=== PATIENT | female | born 1935 | race Caucasian/White ===

== ENCOUNTER 2017-05-04 15:14 | Inpatient (IN) | payer OTHER ==
[~2017-05-04] VITALS: Ht 157.4 cm; Wt 95.4 kg
--- NOTE | ~2017-05-04 | CON ---
[place], [place] REPORT OF CONSULTATION NAME: CALI TAM [facility] #: [id number] UNIT #: [id number] ROOM: 509 DOCTOR: VICTOR HUGO [facility],STEFANIE BIRTHDATE: [birth year] DOS: 05/06/2017 CARDIOLOGY CONSULTATION This is a consult for Dr. Cheema covering on the weekend. The patient brought in with fairly to thrive and injured left shoulder because of the fall and the patient has a history of diastolic congestive heart failure. No syncope or presyncope. The patient tripped in the room apparently. The patient has been here currently feeling better. She is waiting for the transfer to the [facility] care. PHYSICAL EXAMINATION: VITAL SIGNS: Stable and the blood pressure is 124/46, heart rate is 55, afebrile, respiratory rate 18. SKIN: Warm, not diaphoretic. NECK: Supple. LUNGS: Diminished breath sounds and no wheezing. HEART: S1, S2 regular. ABDOMEN: Soft and obese. NEUROLOGIC: Alert, responding and mental status is good. RECTAL AND GENITAL: Deferred, unrelated. IMAGING STUDIES: Chest x-ray still shows left basal infiltrate but stable. No progression. IMPRESSION AND PLAN: 1. Diastolic heart failure appears to be stabilized. 2. The patient is on thyroid supplements for hypothyroidism and potassium supplement. 3. Cardiovascular status appears to be fairly stable and compensating well and Dr. Cheema will follow the patient as an outpatient. MEDICATIONS: Prilosec, Singulair, lisinopril 2.5 daily, isosorbide mononitrate 30 mg daily, Plavix 75 mg daily, furosemide, atenolol 25 mg twice a day, simvastatin 10 mg daily, and continue the current therapy. STEFANIE GAY MD CM:CONSTR:REPORT OF CONSULTATION 1652 05/22/17 1105 GERTRUDE MILLER
--- NOTE | ~2017-05-04 | PR ---
[place], [place] PROGRESS NOTE NAME: CALI TAM [facility] #: [id number] UNIT #: [id number] ROOM: 509 DOCTOR: EZEQUIEL WOODS MD BIRTHDATE: [birth year] DOS: 05/06/2017 SUBJECTIVE: The patient is doing fine without any complaints this morning. She has agreed to go to [facility] where her is currently at. OBJECTIVE: VITAL SIGNS: Graphic trend shows pressure 152/58, pulse of 53, respirations 20, temperature 98.8. LUNGS: Diminished breath sounds. HEART: Regular. ABDOMEN: Obese. EXTREMITIES: Without any edema. ASSESSMENT AND PLAN: 1. Adult failure to thrive with falls with the recent shoulder fracture. Conservative management was ordered by her orthopedic surgeon, but she is unable to take care of herself at home and would require short-term placement to [place]. It is currently being worked on. 2. Acute diastolic congestive heart failure, on IV diuretics. BMP within normal limits this morning. Repeat chest x-ray will be ordered and after that the patient should have her medications changed. EZEQUIEL WOODS MD CM:PNTRANS [id number] EZEQUIEL WOODS MD 05/08/17 0425 interface
--- NOTE | ~2017-05-04 | CON ---
[place], [place] REPORT OF CONSULTATION NAME: CALI TAM [facility] #: [id number] UNIT #: [id number] ROOM: 509 DOCTOR: FELICIA TIMMONS MD BIRTHDATE: [birth year] DOS: 05/08/2017 REPORT TO THE [employer] HISTORY OF PRESENT ILLNESS: The patient is a pleasant 82-year-old woman who was seen at Dr. Elliott' office because of failure to thrive and group home placement. Routine CBC exam, was found to be pancytopenic. I was subsequently consulted for further evaluation and management. PAST MEDICAL HISTORY: Chronic diastolic congestive heart failure, type 2 diabetes; chronic respiratory failure; essential hypertension; long-standing COPD with chronic respiratory failure, oxygen dependent; aortic stenosis; mixed hyperlipidemia; hypothyroidism; major depression; and vitamin D deficiency. FAMILY HISTORY: Noncontributory. SOCIAL HISTORY: Lives with a nephew. No smoking, drinking, or alcohol use. MEDICATIONS: Furosemide, Xanax, and Vicodin. ALLERGIES: To PENICILLIN, LATEX, and LYRICA. REVIEW OF SYSTEMS: CONSTITUTIONAL: No chills. No fatigue. No fever. No loss of appetite. No night sweats. No weakness. No weight loss. HEENT: No trouble swallowing. No loss of smell. No loss of hearing. No double vision. No pain. No discharge. ENT AND RESPIRATORY: No wheeze. No sore throat. No change in voice. No hearing loss. No nose bleed. No cough. No trouble breathing through nose. No shortness of breath. No coughing up blood. No epistaxis. CARDIOVASCULAR: No chest pain. No dizziness. No irregular heartbeat. No leg edema. No pain in legs while walking. No palpitations. No shortness of breath. DERMATOLOGIC: No acne. No hives. No laceration. No mole. No rash. ENDOCRINE: No cold intolerance. No diabetes. No fatigue. No hot flashes. No polydipsia. No polyuria. No urinating frequently. No weight loss. HEMATOLOGIC AND LYMPH: No fatigue. No easy bruising. GASTROENTEROLOGIC: No change in bowel habits. No indigestion. No frequent bloating. No vomiting blood. No abdominal cramping. No nausea. No heartburn. No vomiting. No abdominal pain. No dysphagia. No diarrhea. No constipation. No blood in stool. FEMALE REPRODUCTIVE: No vaginal itching. No difficulty urinating. No heavy periods. No dyspareunia. No sexually active. No dysmenorrhea. No pelvic pain. No breast pain. No nipple discharge. No abnormal vaginal discharge. No hot flashes. MUSCULOSKELETAL: No back pain. No muscle pain or weakness. No neck pain. No tingling/numbness. No swelling/bruising. No osteoporosis treatment. OPHTHALMOLOGIC: No double vision. No diminished vision. No loss of vision. UROLOGIC: No dysuria. No frequent nighttime urination. No irregular periods. [place], [place] REPORT OF CONSULTATION NAME: CALI TAM UNIT #: [id number] ROOM: [facility] DOCTOR: FELICIA TIMMONS MD BIRTHDATE: [birth year] No pain with urination. No difficulty urinating. No blood in urine. No frequent urination. No urinary incontinence. NEUROLOGIC: No loss of sensation in specific body area. No vertigo. No burning pain in feet. No trouble with balance. No trouble with coordination. No loss of consciousness. No loss of feeling/power. No confusion. No headache. No tingling/numbness. PSYCHOLOGIC: No tinnitus. No headaches. No shortness of breath. No weight decrease. No nausea. No vomiting. No abdominal discomfort. No constipation. No diarrhea. No depression. No anxiety. PHYSICAL EXAMINATION: GENERAL: Pleasant woman, in no apparent distress. VITAL SIGNS: Stable. She is afebrile. HEENT: Oral mucosa appears intact. The external ears are normal in appearance. Nares are patent without lesions, exudates, erythema, or inflammation. Tongue is symmetrical. Uvula is midline. NECK AND THYROID: Neck supple without palpable masses. Trachea is midline. No thyromegaly. No carotid bruit or JVD. BREASTS: Normal. Nipples unremarkable. No drainage. No lumps felt on either side. HEART: Normal S1, S2, without significant murmur, rub, or gallop. LUNGS: Clear to auscultation and percussion with good air entry bilaterally. The patient is breathing easily without the use of accessory muscles. Diaphragmatic excursions are intact. ABDOMEN: No costovertebral angle tenderness. Soft. No organomegaly or masses. Nontender. No hernias present. Liver and spleen are not palpable. LYMPHATIC: No adenopathy noted in the cervical, supraclavicular, axillary, or inguinal regions. NEUROLOGIC: Nonfocal. Oriented to person, place, and time. MENTAL STATUS: Appropriate for mood and affect. PERIPHERAL PULSES: No varicosities. Femoral and pedal pulses are palpable. EXTREMITIES: Without cyanosis, clubbing, or edema. No gross anomalies. LABORATORY DATA: White count of 2.7, hemoglobin 11.0, hematocrit 36.4, platelet count 97,000. Labs show BUN of 25, creatinine of 0.89, GFR more than 60. TIBC 244, iron sat is 47. ASSESSMENT: 1. Pancytopenia, probably secondary myelodysplastic syndrome. 2. Acute diastolic type congestive heart failure. 3. Emphysema. The patient wants to review the records. She may have myelodysplastic syndrome, I will see whether further workup was done or not in the meantime. Other lab workup may be done depending upon further intervention. I had a detailed discussion with the patient about it, who seemed to understand it. Ample time was given to the patient to ask me questions. We will follow. Thanks for consulting and letting me participate in the care of this interesting patient. [place], [place] REPORT OF CONSULTATION NAME: CALI TAM UNIT #: [id number] ROOM: [facility] DOCTOR: FELICIA TIMMONS MD BIRTHDATE: [birth year] FELICIA TIMMONS MD CM:CONSTR:REPORT OF CONSULTATION 0846 05/08/17 1234 interface
--- NOTE | ~2017-05-04 | PR ---
[place], [place] PROGRESS NOTE [id number] UNIT #: [id number] ROOM: 509 DOCTOR: ALEKSEY SIMENTAL MD BIRTHDATE: [birth year] DOS: 05/05/2017 SUBJECTIVE: The patient is feeling somewhat better. She is waiting for transfer to [facility] facility. OBJECTIVE: VITAL SIGNS: Blood pressure 122/48, heart rate 59 beats per minute, breathing 18 times per minute, temperature 98.4 degrees Fahrenheit. GENERAL: Generalized weakness and moderate obesity. HEENT AND NECK: Exam within normal limits. CARDIOVASCULAR SYSTEM: Heart rate is regular in rate and rhythm. S1 and S2 normally audible. LUNGS: Clear to auscultation. ABDOMEN: Soft, nontender. No obvious organomegaly. Bowel sounds are present. EXTREMITIES: Without significant cyanosis or edema. IMPRESSION: 1. The patient with old age, adult failure to thrive and generalized weakness is waiting for transfer to [facility] facility as discussed with director of social work. 2. Acute diastolic type congestive heart failure, being treated with diuresis and serum electrolytes are being followed. 3. Left basilar airspace disease, pneumonic infiltrates, being treated with antibiotics. X-ray will be repeated in a couple of days. 4. Pancytopenia and myelodysplasia with thrombocytopenia. 5. Chronic centrilobular emphysema with chronic respiratory failure and oxygen dependence. ALEKSEY SIMENTAL MD CM:PNTRANS [id number] ALEKSEY SIMENTAL MD 05/06/17 0032 interface
--- NOTE | ~2017-05-04 | DS ---
[place], [place] DISCHARGE SUMMARY NAME: CALI TAM [facility] #: [id number] UNIT #: [id number] ROOM: 509 DOCTOR: EZEQUIEL WOODS MD BIRTHDATE: [birth year] DOS: HOSPITAL COURSE: The patient is very well known to us. The patient was brought into the office with complaints of shortness of breath, shoulder pain and difficulty to take care of herself at home. After being evaluated in the office, the patient was admitted. IV diuretics were given. Chest x-ray showed atelectasis. The patient's labs were all fairly within normal limits as far as the basic metabolic panel is concerned but the CBC showed pancytopenia, could be from underlying myelodysplasia. The patient was ordered a consultation with Dr. Kerns. Iron deficiency was noted. Iron supplements have been started. The patient had a social service consult and PT, OT consult for placement. The patient also had a CT of the chest to rule out underlying pneumonia, atelectasis was seen, no actual infiltrate was noted, small pleural effusion is also seen. The patient is diuresed nicely. Pain is under control for recent clavicle fracture and the patient is going to a detention today for rehab purposes. DISCHARGE MEDICATIONS: Iron 325 mg daily, duloxetine 60 daily, Singulair 10 daily, omeprazole 20 daily, Zocor 10 daily, Plavix 75 daily, Colace 100 daily, levothyroxine 100 mcg daily, Isordil 30 daily, lisinopril 2.5 daily, gabapentin 100 t.i.d., potassium 10 daily, [place] 5 t.i.d. p.r.n., vitamin D 50,000 once a week for 4 more weeks and then discontinue, Lasix 40 mg p.o. daily, vitamin B complex 1 tablet daily, atenolol dosage was cut down to 25 mg daily because of bradycardia. EZEQUIEL WOODS MD CM:DISCHARG [id number] EZEQUIEL WOODS MD 05/08/17 0913 interface
--- NOTE | ~2017-05-04 | PR ---
[place], [place] PROGRESS NOTE NAME: CALI TAM [facility] #: [id number] UNIT #: [id number] ROOM: 509 DOCTOR: EZEQUIEL WOODS MD BIRTHDATE: [birth year] DOS: 05/08/2017 SUBJECTIVE: The patient is about the same, does not have any new complaints. PHYSICAL EXAMINATION: GENERAL: She is awake and alert and oriented. VITAL SIGNS: Blood pressure is 128/53, pulse of 58, respirations 18, temperature 98.1. LUNGS: Diminished breath sounds, clear. HEART: Regular. ABDOMEN: Obese, soft, nontender. EXTREMITIES: Without any edema. ASSESSMENT AND PLAN: 1. Acute diastolic congestive heart failure, improved. 2. Bradycardia noted. So, we will go ahead and cut back on the atenolol dosage to 25 mg daily. 3. Adult failure to thrive for placement to [facility] today. 4. Pancytopenia. Did ask Dr. Kerns for an opinion. TIBC, iron on the low side and supplements will be started in the process ruling out myelodysplasia. The patient to follow with Dr. Kerns as an outpatient. 5. Basilar atelectasis. CT of the chest shows small pleural effusions and atelectasis without any evidence of pneumonia. Recent fracture of the clavicle, again for a short term placement to a [facility]. EZEQUIEL WOODS MD CM:PNTRANS [id number] EZEQUIEL WOODS MD 05/08/17 1642 interface
--- NOTE | ~2017-05-04 | CON ---
[place], [place] REPORT OF CONSULTATION NAME: CALI TAM [facility] #: [id number] UNIT #: [id number] ROOM: 509 DOCTOR: SUSANA TejadaJHONY BIRTHDATE: [birth year] DOS: 05/05/2017 WOUND CARE CONSULTATION HISTORY OF PRESENT ILLNESS: This is an 82-year-old female with history of chronic congestive heart failure, myelodysplasia, pancytopenia, type 2 diabetes, essential hypertension, COPD, recent fracture of the left clavicle with severe debility who was admitted directly from the primary care office for adult failure to thrive and detention placement. Wound care has been consulted for a deep tissue injury of the buttock area that the patient states she has had for a couple of weeks now. According to the patient, she had a fall 3-5 weeks ago. She states it was at [facility] while she was using the restroom, she had trouble reaching the handlebars and fell and fractured her clavicle. Since then she has had quite a bit of difficulty and disability and has not been able to sleep in a bed due to this problem, so she has been sitting up in the chair and sleeping in a chair and since then she states she has developed a pressure sore on the buttock area that she states was actually open at one point and she utilized a skin protectant cream that she had. She is not sure what it was called, but it was a skin protectant that she utilized for this and it improved, it is no longer open and it is definitely not causing her any pain at this time. So, she has had this for a couple of weeks now. This is why I was consulted. PAST MEDICAL HISTORY: Significant for the following: Hypertension, congestive heart failure, peripheral vascular disease, status post right carotid endarterectomy, paroxysmal atrial fibrillation, hyperlipidemia, hypothyroidism, aortic stenosis, and morbid obesity. She also has a history of type 2 diabetes, chronic respiratory failure with hypercapnia, COPD, hyperlipidemia, vitamin D deficiency, major depression, which is recurrent and myelodysplastic syndrome, and pancytopenia. SOCIAL HISTORY: She does not smoke or drink. The patient's nephew lives with her. There is no history of drug abuse. FAMILY HISTORY: Really noncontributory at this time. ALLERGIES: PENICILLIN, LATEX AND LYRICA. MEDICATIONS: As follows: She is on levothyroxine 150 mcg daily, potassium 10 mEq daily, Singulair 10 daily, lisinopril 2.5 daily, Imdur 30 mg p.o. daily, Lasix 60 mg IV daily, Cymbalta 60 mg p.o. daily, Plavix 75 p.o. daily, Prilosec 20 p.o. daily, levothyroxine 100 mcg on Monday, Monday, Monday, and and the rest of the days, Monday and Monday, she is on 150. Zocor 10 at bedtime, Neurontin 100 p.o. t.i.d., Colace 100 at bedtime, atenolol 25 mg p.o. b.i.d., Dameron one tablet t.i.d. p.r.n., Xanax 0.5 p.o. b.i.d. p.r.n. REVIEW OF SYSTEMS: She does complain of a chronic cough. She says she has some increased pedal edema. She says her appetite has not been good. She does not think she has lost any weight. She denies any chest pain. Her breathing is comfortable presently, but she does get increasing shortness of breath upon [place], [place] REPORT OF CONSULTATION [id number] #: [id number] ROOM: [facility] DOCTOR: JHONY MEZA M.D. BIRTHDATE: [birth year] exertion. No nausea, vomiting, abdominal pain, or diarrhea. No chest pains or palpitations. PHYSICAL EXAMINATION: VITAL SIGNS: Stable. Temperature is 97.4, pulse of 57, respirations 16, blood pressure is 137/52. GENERAL: This is an elderly female, morbidly obese, sitting in a chair, in no acute distress. She is comfortable. HEENT: Extraocular movements are intact. Sclerae are anicteric. NECK: Supple. There is no JVD. LUNGS: Have some occasional rhonchi throughout that clear with a cough. CARDIOVASCULAR: S1, S2, regular rate and rhythm. ABDOMEN: Morbidly obese, soft and nontender. EXTREMITIES: She has edema bilaterally that is pitting and there is no calf tenderness. She has very limited range of motion with her left arm. She has 2 areas of what appear to be deep tissue injury, it is a purplish discoloration, that are essentially mirror images of each other, on each of the buttocks, it is approximately 4-5 cm in length x 3-4 cm in width. It is not actually open. It does appear that there is some dry skin. It does look like this probably had been open at one time and had healed over, but is not open. LABORATORY DATA: Her white count today is 2.7, hemoglobin is 11, platelets are 93. Sodium is 144, BUN is 21, creatinine 0.9. Glucose is 95. Her chest x-ray shows progressive left basilar airspace and pleural disease. ASSESSMENT AND PLAN: A deep tissue injury of the buttock area which appears closed at this time. According to the patient's story, it sounds like it was open, but has since healed over. She has been using a skin protectant, so we will continue to use that for now. I think it would be hard to put a dressing on this area at this time and per the patient report since it seemed to have healed with skin protectant, I would avoid trying to put any dressing on at this time. She should be encouraged to offload the area as much as possible. We should get her an air mattress if we can, encourage her to lie on her side when she is in bed. She should have a wedge to keep her off of the area as much as possible and a cushion for her chair when she is in a seated position. She has multiple other medical problems that are being managed by her medical team. Thank you for this consult. [place], [place] REPORT OF CONSULTATION NAME: [id number] UN[facility] #: [id number] ROOM: [facility] DOCTOR: JHONY MEZA M.D. BIRTHDATE: [birth year] JHONY MEZA MD CM:CONSTR:REPORT OF CONSULTATION 1354 EM 05/15/17 1533 ELPIDIO QUEEN.EM
--- NOTE | ~2017-05-04 | WRIGHTHP ---
[place], [place] PATIENT HISTORY AND PHYSICAL EXAM NAME: CALI TAM [facility] #: [id number] UNIT #: [id number] ROOM: 509 DOCTOR: ALEKSEY SIMENTAL MD BIRTHDATE: [birth year] DOS: 05/04/2017 HISTORY OF PRESENT ILLNESS: An 82-year-old female with a past medical history of: 1. Chronic diastolic type congestive heart failure. 2. Myelodysplastic syndrome and pancytopenia. 3. Type 2 diabetes mellitus. 4. Chronic respiratory failure and hypercapnia. 5. Benign essential hypertension. 6. COPD with chronic respiratory failure, oxygen dependence. 7. Mixed hyperlipidemia. 8. Aortic stenosis. 9. Hypothyroidism. 10. Major depression, recurrent. 11. Vitamin D deficiency. The patient was sent over by Dr. Elliott from the office for an admission to [facility] for adult failure to thrive and intermediate placement. After admission, the patient says that her nephew lives with her. She denies smoking cigarettes, alcohol and drug abuse. No chest pain, increasing shortness of breath. The patient unable to live by herself and requires a intermediate placement. REVIEW OF SYSTEMS: LUNGS: No increasing shortness of breath or wheezing. GASTROINTESTINAL: No nausea, vomiting, diarrhea, constipation. CARDIOVASCULAR: No chest pains or palpitations. FAMILY HISTORY: Noncontributory. SOCIAL HISTORY: The patient's nephew lives with her. Denies smoking cigarettes, alcohol or any drug abuse. MEDICATIONS: Furosemide, Xanax, Vicodin. ALLERGIES: Known allergies to PENICILLIN, LATEX, LYRICA. PHYSICAL EXAMINATION: GENERAL: Alert and oriented x 3, in no visible distress, moderately obese and very weak. Morbid obesity, generalized weakness. VITAL SIGNS: Blood pressure 113/45, heart rate of 58 beats per minute, breathing 18 times per minute, temperature 98.4 degrees Fahrenheit. HEENT AND NECK: Extraocular movements are intact. Sclerae are anicteric. Oral mucosa is moist and clean. No obvious facial weakness. Neck is supple without any lymphadenopathy. No thyromegaly. No JVD. No carotid arterial bruits. LUNGS: Clear to auscultation. No wheezing. No rhonchi. CARDIOVASCULAR SYSTEM: Heart rate is regular in rate and rhythm. S1 and S2 normally audible. No significant murmur or any other abnormal cardiac sounds. ABDOMEN: Soft, nontender. No obvious organomegaly. Bowel sounds are present. No obvious herniation. [place], [place] PATIENT HISTORY AND PHYSICAL EXAM NAME: CALI TAM UNIT #: [id number] ROOM: 509 DOCTOR: ALEKSEY SMIENTAL MD BIRTHDATE: [birth year] EXTREMITIES: Without significant cyanosis or edema. Warm to touch. CENTRAL NERVOUS SYSTEM: Alert and oriented x 3. Cranial nerves II-XII are intact. Speech is normal. The patient is able to move all extremities. Normal muscle strength. Deep tendon reflexes are equal on both sides. Plantars were downgoing. LABORATORY DATA: Chest x-ray shows progressive left basilar airspace and pleural disease. BUN and creatinine 20 and 1.1, CO2 of 38. White cell count of 2700, hemoglobin 11.2, platelets low at 93,000. IMPRESSION: 1. Old age, adult failure to thrive and generalized weakness. The patient requires intermediate placement, sent over by Dr. Elliott. 2. The patient with acute diastolic type congestive heart failure, to be diuresed with IV Lasix and serum electrolytes will be monitored. 3. Progressive left basilar airspace disease, pleural disease and pneumonic infiltrate, to be treated with antibiotics. 4. director of clinical services have been consulted for placement to the intermediate. 5. Myelodysplasia and pancytopenia including thrombocytopenia. 6. Chronic centrilobular emphysema and chronic respiratory failure with oxygen dependence. ALEKSEY SIMENTAL MD CM:HISPHYS:PATIENT HISTORY AND PHYSICAL EXAMINATION 23 54 ALEKSEY SIMENTAL MD 05/04/172253 interface
--- NOTE | ~2017-05-04 | PR ---
[place], [place] PROGRESS NOTE [facility]: [id number] UNIT #: [id number] ROOM: 509 DOCTOR: EZEQUIEL WOODS MD BIRTHDATE: [birth year] DOS: SUBJECTIVE: The patient states that she is ready to go to the residential. OBJECTIVE: VITAL SIGNS: Graphic trend shows a pressure of 126/62, pulse is 61, respirations 18, temperature 98.4. LUNGS: Clear. HEART: Regular. ABDOMEN: Obese. EXTREMITIES: Without any edema. LABORATORY DATA: So far I only have a CBC, which showed continued pancytopenia, white cell count is 2.9, hemoglobin 11.1, and platelets 92. Chest x-ray continues to show atelectasis. BMP is not available today. ASSESSMENT AND PLAN: 1. Acute diastolic congestive heart failure, improved. We will make the Lasix p.o. 2. Adult failure to thrive with fall and fracture of the shoulder for placement to [place] hopefully tomorrow. 3. Pancytopenia. We will ask Dr. Kerns for an opinion, most likely myelodysplastic syndrome. EZEQUIEL WOODS MD CM:PNTRANS 07 EZEQUIEL WOODS MD 05/07/17 0915 interface
[~2017-05-04 15:14] MED LIST: ADVAIR 100/501 E1 INH; ALPRAZOLAM0.5 M3 PO; ATENOLOL25 MG PO; B COMPLETE1 EACH PO; CIPRO500 MG PO; COLACE100 MG PO; CYMBALTA60 MG PO; HYDROCODON-ACE1 EACH PO; HYDROCODONE BIT1 T11 PO; IMDUR SA30 MG PO; INVANZ1 GM/50 ML IV; Imdur SA60 MG PO; K-TAB10 MEQ PO; LASIX20 MG PO; LISINOPRIL10 M1 PO; LISINOPRIL5 MG PO; LYRICA75 M1 PO; NEURONTIN100 MG PO; OMEPRAZOLE DR20 M1 PO; PLAVIX75 M1 PO; PLAVIX75 MG PO; POTASSIUM CHLO10 ME4 PO; SEPTRA DS 800 M1 TAB PO; SIMVASTATIN10 MG PO; SINGULAIR10 MG PO; SYNTHROID,LEV100 MCG PO; Synthroid,Lev100 MCG PO; Synthroid,Lev150 MCG PO; TRICOR145 MG PO; VICODIN ES 7501 TAB PO; VITAMIN D22000 UNIT PO; VITAMIN D2400 UNIT PO; VITAMIN D50000 UNIT PO; XANAX0.5 MG PO; ZESTRIL5 MG PO; ZOCOR10 MG PO
[2017-05-04] MEDS ORDERED: LASIX20 MG PO (15:53)
[2017-05-04 16:00] VITALS: BP 113/45
[2017-05-04] MEDS ORDERED: LEVOTHYROXINE0.1 MG PO (16:05)
[2017-05-04] MEDS ORDERED: B COMPLETE1 EACH PO (16:08)
[2017-05-04 16:50] LABS: EOS # 0.1 10*3/uL (0.0-0.4); EOS % 2.6 % (1.0-4.0); HEMATOCRIT 36.1 % (37.0-47.0); HEMOGLOBIN 11.2 g/dl (12.0-16.0); LYMPH # 0.8 10*3/uL (1.3-4.4); LYMPH % 30.2 % (27.0-41.0); MEAN CELL VOLUME 98.4 fl (81.0-99.0); MEAN CORPUSCULAR HGB 30.5 pg (27.0-31.0); MEAN PLATELET VOLUME 8.6 fl (9.6-12.3); MONO # 0.2 10*3/uL (0.1-1.0); MONO % 6.3 % (3.0-9.0); NEUT # 1.6 10*3/uL (2.3-7.9); NEUT % 60.5 % (47.0-73.0); PLATELET COUNT AUTOMATED 93 10*3/uL (130-400); RED BLOOD COUNT 3.67 10*6/uL (4.10-5.10); RED CELL DISTRI WIDTH 13.8 % (0-14.5); WHITE BLOOD COUNT 2.7 10*3/uL (4.8-10.8)
[2017-05-04 17:03] LABS: POTASSIUM 4.9 mmol/L (3.5-5.1)
[2017-05-04 20:00] VITALS: BP 145/50
[2017-05-05] VITALS: BP 124/50
[2017-05-05 07:31] LABS: BUN 21 mg/dl (7-24); CARBON DIOXIDE 36 mmol/L (21-32); CHLORIDE 101 mmol/L (98-107); EST GLOM FILT AFRICAN AMERICAN > 60 ml/min; GLUCOSE 95 mg/dL (65-99); POTASSIUM 4.4 mmol/L (3.5-5.1); SODIUM 144 mmol/L (136-145)
[2017-05-05 08:00] VITALS: BP 122/48
[2017-05-05 12:00] VITALS: BP 137/52
[2017-05-05 16:00] VITALS: BP 142/50
[2017-05-05 20:00] VITALS: BP 147/72
[2017-05-06] VITALS: BP 152/58
[2017-05-06 06:53] LABS: BUN 19 mg/dl (7-24); CARBON DIOXIDE 39 mmol/L (21-32); CHLORIDE 98 mmol/L (98-107); EST GLOM FILT AFRICAN AMERICAN > 60 ml/min; GLUCOSE 86 mg/dL (65-99); SODIUM 144 mmol/L (136-145)
[2017-05-06 08:00] VITALS: BP 126/86; BP 128/64
[2017-05-06 12:00] VITALS: BP 123/66
[2017-05-06 16:00] VITALS: BP 124/46
[2017-05-06 20:00] VITALS: BP 135/54
[2017-05-07] VITALS: BP 126/62
[2017-05-07 06:55] LABS: EOS # 0.1 10*3/uL (0.0-0.4); HEMATOCRIT 35.5 % (37.0-47.0); HEMOGLOBIN 11.1 g/dl (12.0-16.0); LYMPH # 0.9 10*3/uL (1.3-4.4); LYMPH % 31.1 % (27.0-41.0); MEAN CELL VOLUME 98.3 fl (81.0-99.0); MEAN CORPUSCULAR HGB 30.7 pg (27.0-31.0); MEAN CORPUSCULAR HGB CONC 31.3 g/dl (33.0-37.0); MEAN PLATELET VOLUME 8.6 fl (9.6-12.3); MONO # 0.2 10*3/uL (0.1-1.0); MONO % 6.5 % (3.0-9.0); NEUT # 1.8 10*3/uL (2.3-7.9); NEUT % 59.7 % (47.0-73.0); PLATELET COUNT AUTOMATED 92 10*3/uL (130-400); RED BLOOD COUNT 3.61 10*6/uL (4.10-5.10); RED CELL DISTRI WIDTH 13.2 % (0-14.5); WHITE BLOOD COUNT 2.9 10*3/uL (4.8-10.8)
[2017-05-07 07:33] LABS: BUN 19 mg/dl (7-24); CHLORIDE 96 mmol/L (98-107); EST GLOM FILT AFRICAN AMERICAN > 60 ml/min; GLUCOSE 93 mg/dL (65-99); POTASSIUM 4.4 mmol/L (3.5-5.1); SODIUM 142 mmol/L (136-145)
[2017-05-07 07:37] LABS: CARBON DIOXIDE 42 mmol/L (21-32)
[2017-05-07 08:00] VITALS: BP 156/78
[2017-05-07 12:00] VITALS: BP 170/86
[2017-05-07 16:33] VITALS: BP 123/40
[2017-05-07 20:00] VITALS: BP 134/65
[2017-05-08] VITALS: BP 128/53
[2017-05-08 06:27] LABS: EOS % 1.5 % (1.0-4.0); HEMATOCRIT 36.4 % (37.0-47.0); LYMPH % 35.7 % (27.0-41.0); MEAN CELL VOLUME 98.9 fl (81.0-99.0); MEAN CORPUSCULAR HGB 29.9 pg (27.0-31.0); MEAN CORPUSCULAR HGB CONC 30.2 g/dl (33.0-37.0); MEAN PLATELET VOLUME 9.1 fl (9.6-12.3); MONO # 0.2 10*3/uL (0.1-1.0); MONO % 5.6 % (3.0-9.0); NEUT # 1.5 10*3/uL (2.3-7.9); NEUT % 56.8 % (47.0-73.0); PLATELET COUNT AUTOMATED 97 10*3/uL (130-400); RED BLOOD COUNT 3.68 10*6/uL (4.10-5.10); RED CELL DISTRI WIDTH 13.3 % (0-14.5); RETICULOCYTE % 1.92 % (0.50-2.50); WHITE BLOOD COUNT 2.7 10*3/uL (4.8-10.8)
[2017-05-08 06:37] LABS: IRF 13.8 % (2.4-13.3); RET-He 30.3 pg (32.1-37.9)
[2017-05-08 06:53] LABS: IRON 47 ug/dL (50-170)
[2017-05-08] MEDS ORDERED: ATENOLOL25 MG PO (07:47)
[2017-05-08] MEDS ORDERED: IRON325 M2 PO (07:51)
[2017-05-08 08:00] VITALS: BP 154/52
[2017-05-08 12:00] VITALS: BP 113/48
[2017-05-09 15:10] LABS: HLA CLASS 1 ANTIBODY Negative (Negative); IIb/IIIa ANTIBODY Negative (Negative); Ia/IIa ANTIBODY Negative (Negative)
[2017-05-10 15:07] LABS: PLT ASSOCIATED ANTI-la/lla Negative (Negative); PLT ASSOCIATED ANTI-llb/llla Negative (Negative)
== END 2017-05-08 15:32 | disposition other institution (70) | DRG 291 ==
LOC: 5E 15:14
PROVIDERS: Internal Medicine; Internal Medicine Hematology & Oncology
DX: I50.33 Acute on chronic diastolic (congestive) heart failure (principal); J96.22 Acute and chronic respiratory failure with hypercapnia; D61.818 Other pancytopenia; E11.51 Type 2 diabetes mellitus with diabetic peripheral angiopathy without gangrene; J43.2 Centrilobular emphysema; D46.9 Myelodysplastic syndrome, unspecified; J98.11 Atelectasis; F33.9 Major depressive disorder, recurrent, unspecified; I11.0 Hypertensive heart disease with heart failure; E61.1 Iron deficiency; E78.2 Mixed hyperlipidemia; E03.9 Hypothyroidism, unspecified; R62.7 Adult failure to thrive; S42.002A Fracture of unspecified part of left clavicle, initial encounter for closed fracture; I48.0 Paroxysmal atrial fibrillation; E66.01 Morbid (severe) obesity due to excess calories; I35.0 Nonrheumatic aortic (valve) stenosis; S30.0XXA Contusion of lower back and pelvis, initial encounter; Z99.81 Dependence on supplemental oxygen; Z91.040 Latex allergy status; Z88.8 Allergy status to other drugs, medicaments and biological substances; Z88.0 Allergy status to penicillin; Z91.013 Allergy to seafood; Z87.81 Personal history of (healed) traumatic fracture; Z68.38 Body mass index [BMI] 38.0-38.9, adult; W01.0XXA Fall on same level from slipping, tripping and stumbling without subsequent striking against object, initial encounter; Y93.89 Activity, other specified; Y92.89 Other specified places as the place of occurrence of the external cause; Y99.8 Other external cause status

== ENCOUNTER 2017-11-24 08:20 | Inpatient (IN) | payer MEDICARE, OTHER ==
[~2017-11-24] VITALS: Ht 165 cm; Wt 104.1 kg
--- NOTE | ~2017-11-24 | PR ---
[place], [place] PROGRESS NOTE NAME: CALI TAM [facility] #: [id number] UNIT #: [id number] ROOM: 503 DOCTOR: FELICIA TIMMONS MD BIRTHDATE: [birth year] DOS: 12/01/2017 SUBJECTIVE: The patient is doing much better. She is doing better and is being transferred to [facility]. REVIEW OF SYSTEMS: HEENT: No trouble swallowing. No double vision. No loss of vision. No pain. ENT AND RESPIRATORY: No wheeze. No change in voice. No cough. No shortness of breath. No coughing up blood. No epistaxis. CARDIOLOGIC: No chest pain. No dizziness. No irregular heartbeat. No leg edema. No palpitations. No shortness of breath. HEMATOLOGIC AND LYMPH: No past transfusion. No fatigue. No loss of appetite. No easy bruising. GASTROENTEROLOGIC: No change in bowel habits. No vomiting blood. No abdominal cramping. No nausea. No vomiting. No diarrhea. No constipation. No blood in stool. FEMALE REPRODUCTIVE: No dyspareunia. No pelvic pain. MUSCULOSKELETAL: No back pain. No muscle pain or weakness. No tingling/numbness. UROLOGIC: No pain with urination. No difficulty urinating. No frequent urination. NEUROLOGIC: No burning pain in feet. No trouble with coordination. No loss of consciousness. No headache. No tingling/numbness. No memory loss. PHYSICAL EXAMINATION: GENERAL: Pleasant woman in no apparent distress. VITAL SIGNS: Stable. She is afebrile. HEENT: Normocephalic, atraumatic NECK AND THYROID: Supple. No JVD, thyromegaly, or lymphadenopathy. HEART: Normal S1, S2. Regular rate and rhythm. LUNGS: Clear to auscultation and percussion. ABDOMEN: Soft. Nontender, nondistended. Bowel sounds present. EXTREMITIES: Normal ROM. No clubbing. No edema. LABORATORY DATA: White count 3.5, hemoglobin 11.1, hematocrit 36.6, and platelet 106,000. ASSESSMENT: 1. Pancytopenia. 2. Possible myelofibrosis. 3. Exacerbation of chronic obstructive pulmonary disease. PLAN: The patient probably is going to be transferred to [facility]. We will keep a close watch on the white count, if started dropping, then further intervention discussed. [place], [place] PROGRESS NOTE NAME: CALI TAM UNIT #: [id number] ROOM: 503 DOCTOR: FELICIA TIMMONS MD BIRTHDATE: [birth year] FELICIA TIMMONS MD CM:PNTRANS 46 FELICIA TIMMONS MD 12/01/171946 interface
--- NOTE | ~2017-11-24 | PR ---
[place], [place] PROGRESS NOTE NAME: CALI TAM UNIT #: [id number] ROOM: 503 DOCTOR: KHLOE POOL DO BIRTHDATE: [birth year] DOS: 11/29/2017 SUBJECTIVE: The patient is seen and examined at bedside. The patient reports that her respiratory symptoms have improved. No new complaints at this time. The patient continues to improve. The patient continues to be anxious for discharge. OBJECTIVE: VITAL SIGNS: Temperature 97.5, pulse is 60, respirations 16, blood pressure 134/62, pulse ox is 94% on 3 liters nasal cannula. LABS: White count 4.5, hemoglobin 12.3, hematocrit 4.0, platelets count 134. Blood gasses this morning showed a pH of 7.26, pCO2 of 67.2, pO2 of 83.9. Chemistries: Sodium 137, potassium 4.8, chloride 98, carbon dioxide 34, BUN and creatinine 63 and 2.0. Glucose was 86, calcium 8.6. Urine culture was negative. MRSA screen was negative. PHYSICAL EXAMINATION: GENERAL APPEARANCE: Alert and awake and oriented x 3, no acute distress. LUNGS: Clear to auscultation bilaterally. ABDOMEN: Soft, nontender with positive bowel signs. CARDIOVASCULAR: Regular rate and rhythm. No murmurs, gallops or rubs. EXTREMITIES: Without edema. IMPRESSION: Acute on chronic exacerbation of chronic obstructive pulmonary disease with acute hypercarbia and hypoxia. Status resolving. PLAN OF CARE: The patient is stable from a medical standpoint for discharge home. No change in current plan. The patient can be discharged with Diamox, steroids, antibiotics and can follow up outpatient with Dr. Gonzalez in 1-2 weeks. KHLOE POOL DO [place], [place] PROGRESS NOTE NAME: CALI TAM UNIT #: [id number] ROOM: 503 DOCTOR: KHLOE POOL DO BIRTHDATE: [birth year] CRISTIAN GONZALEZ MD CM:WILVER [id number] KHLOE POOL DO 11/29/17 1313 interface
--- NOTE | ~2017-11-24 | CON ---
[place], [place] REPORT OF CONSULTATION NAME: CALI TAM [facility] #: [id number] UNIT #: [id number] ROOM: 503 DOCTOR: FELICIA TIMMONS MD BIRTHDATE: [birth year] DOS: 11/27/2017 HISTORY OF PRESENT ILLNESS: The patient is a pleasant 82-year-old [place] woman admitted because of increasing shortness of breath, was also noted to have generalized weakness and fatigue. Initially, she was noted to have UTI and was treated previously with antibiotics while in the hospital though she was noted to have pancytopenia and consulted for further evaluation and management. PAST MEDICAL HISTORY: Significant for history of pancytopenia in the past, was being worked up, but never showed up in the office. History of chronic obstructive pulmonary disease, chronic hypoxic respiratory failure, chronic hypercapnic respiratory failure, essential hypertension, mixed hyperlipidemia, aortic stenosis, hypothyroidism, failure to thrive. PAST SURGICAL HISTORY: Left carotid endarterectomy, history of partial thyroidectomy for goiter. SOCIAL HISTORY: , 3 children, lives at home. Denies any drug abuse or alcohol abuse. She worked 20 years in [employer]. Denies any chronic alcohol abuse. FAMILY HISTORY: Not contributory. MEDICATIONS: Solu-Medrol, Diamox, thiamine, potassium chloride, lisinopril, Imdur, Lasix, ferrous sulfate, Plavix, atenolol, omeprazole, Synthroid, simvastatin, gabapentin, DuoNeb. ALLERGIES: PENICILLIN and LYRICA. REVIEW OF SYSTEMS: CONSTITUTIONAL: No chills. No fatigue. No fever. No loss of appetite. No night sweats. No weakness. No weight loss. HEENT: No trouble swallowing. No loss of smell. No loss of hearing. No double vision. No pain. No discharge. ENT AND RESPIRATORY: No wheeze. No sore throat. No change in voice. No hearing loss. No nose bleed. No cough. No trouble breathing through nose. No shortness of breath. No coughing up blood. No epistaxis. CARDIOVASCULAR: No chest pain. No dizziness. No irregular heartbeat. No leg edema. No pain in legs while walking. No palpitations. No shortness of breath. DERMATOLOGIC: No acne. No hives. No laceration. No mole. No rash. ENDOCRINE: No cold intolerance. No diabetes. No fatigue. No hot flashes. No polydipsia. No polyuria. No urinating frequently. No weight loss. HEMATOLOGIC AND LYMPH: No fatigue. No easy bruising. GASTROENTEROLOGIC: No change in bowel habits. No indigestion. No frequent bloating. No vomiting blood. No abdominal cramping. No nausea. No heartburn. No vomiting. No abdominal pain. No dysphagia. No diarrhea. No constipation. No blood in stool. FEMALE REPRODUCTIVE: No vaginal itching. No difficulty urinating. No heavy periods. No dyspareunia. No sexually active. No dysmenorrhea. No pelvic pain. [place], [place] REPORT OF CONSULTATION [facility] [id number] UNIT #: [id number] ROOM: [facility] DOCTOR: FELICIA TIMMONS MD BIRTHDATE: [birth year] No breast pain. No nipple discharge. No abnormal vaginal discharge. No hot flashes. MUSCULOSKELETAL: No back pain. No muscle pain or weakness. No neck pain. No tingling/numbness. No swelling/bruising. No osteoporosis treatment. OPHTHALMOLOGIC: No double vision. No diminished vision. No loss of vision. UROLOGIC: No dysuria. No frequent nighttime urination. No irregular periods. No pain with urination. No difficulty urinating. No blood in urine. No frequent urination. No urinary incontinence. NEUROLOGIC: No loss of sensation in specific body area. No vertigo. No burning pain in feet. No trouble with balance. No trouble with coordination. No loss of consciousness. No loss of feeling/power. No confusion. No headache. No tingling/numbness. PSYCHOLOGIC: No tinnitus. No headaches. No shortness of breath. No weight decrease. No nausea. No vomiting. No abdominal discomfort. No constipation. No diarrhea. No depression. No anxiety. PHYSICAL EXAMINATION: GENERAL: Pleasant woman in no acute distress. VITAL SIGNS: Stable, afebrile. HEENT: Oral mucosa appears intact. The external ears are normal in appearance. Nares are patent without lesions, exudates, erythema, or inflammation. Tongue is symmetrical. Uvula is midline. NECK AND THYROID: Neck supple without palpable masses. Trachea is midline. No thyromegaly. No carotid bruit or JVD. BREASTS: Normal. Nipples unremarkable. No drainage. No lumps felt on either side. HEART: Normal S1, S2, without significant murmur, rub, or gallop. LUNGS: Clear to auscultation and percussion with good air entry bilaterally. The patient is breathing easily without the use of accessory muscles. Diaphragmatic excursions are intact. ABDOMEN: No costovertebral angle tenderness. Soft. No organomegaly or masses. Nontender. No hernias present. Liver and spleen are not palpable. LYMPHATIC: No adenopathy noted in the cervical, supraclavicular, axillary, or inguinal regions. NEUROLOGIC: Nonfocal. Oriented to person, place, and time. MENTAL STATUS: Appropriate for mood and affect. PERIPHERAL PULSES: No varicosities. Femoral and pedal pulses are palpable. EXTREMITIES: Without cyanosis, clubbing, or edema. No gross anomalies. LABORATORY DATA: White count of 3.0, hemoglobin 11.6, hematocrit 39.2, MCV 100.8, platelet count 110,000. ASSESSMENT: 1. Pancytopenia from etiology. 2. Acute superimposed congestive heart failure with a history of aortic stenosis. 3. Questionable history of myelofibrosis. PLAN: I will review records from the office for further evaluation. In the meantime, I will review the peripheral smears record from the hospital also [place], [place] REPORT OF CONSULTATION NAME: CALI TAM UNIT #: [id number] ROOM: [facility] DOCTOR: FELICIA TIMMONS MD BIRTHDATE: [birth year] reported that the counts dropped with further intervention. I had detailed discussion with the patient about this, seemed to understand. Ample time was given to the patient to ask me questions. We will follow. Thanks for consulting and letting participate in the care of this interesting patient. FELICIA TIMMONS MD CM:CONSTR:REPORT OF CONSULTATION 1425 11/27/17 7637 interface
--- NOTE | ~2017-11-24 | PR ---
[place], [place] PROGRESS NOTE NAME: CALI TAM [facility] #: [id number] UNIT #: [id number] ROOM: 503 DOCTOR: LISA BRANCH MD,CRISTIAN BIRTHDATE: [birth year] DOS: 11/27/2017 SUBJECTIVE: The patient was noted without any acute respiratory distress at this time using the BiPAP. The patient at this time for reduction of the respiratory status noted. Mental status was noted completely normal. We were able to communicate with the patient this morning. Denies symptoms of headache, nausea, vomiting or diarrhea. Denies any significant edema in lower extremity. Denies any symptoms of edema or pain of the lower extremities at the present time. OBJECTIVE: VITAL SIGNS: For the patient which were recorded, the temperature noted as normal. The respiratory rate of the patient recorded as 14-20, heart rate 66-74, blood pressure 122/45 to 138/47. The pulse oxygen saturation of the patient recorded as 45% BiPAP is 97% saturation. HEENT: Examination shows no acute change. NECK: Supple. CARDIOVASCULAR: S1, S2 is audible. LUNGS: The patient was noted without any wheezing or crackles at the present time. Breaths are noted generally diminished bilaterally. Decreased air entry of the lungs bilaterally. ABDOMEN: Soft, nontender. Bowel sounds present. EXTREMITIES: The patient was noted without any edema, clubbing or cyanosis. SKIN: Visible skin. No lesions or rashes. MUSCULOSKELETAL: No deformities. LABORATORY DATA: Arterial blood gas that was obtained today on 3 liters cannula, pH of 7.32, pCO2 of 72.1, pO2 of 65. No other labs were done today. IMPRESSION: 1. The patient was currently noted with resolving acute on chronic hypercapnic and hypoxic respiratory failure at the present time. 2. Acute exacerbation of chronic obstructive pulmonary disease. 3. Chronic obesity as well. 4. Overall severe debility, still persisted. 5. Metabolic alkalosis. PLAN OF MANAGEMENT: The patient could be transferred from the intensive care unit to the telemetry floor. However, the BiPAP will be continued as previously ordered. Continuation of the current dose of corticosteroids. Continuation of bronchodilator with oxygen supplementation. Monitor respiratory status closely with arterial blood gas of the patient preferably due to assess the improvement in the respiratory failure and hypercapnia. All other treatment as previously will be continued. Supportive care. Additional treatment changes continued to be made based on the progression of her illness. [place], [place] PROGRESS NOTE NAME: CALI TAM [facility] UNIT #: [id number] ROOM: 503 DOCTOR: CRISTIAN SORIANO MD BIRTHDATE: [birth year] CRISTIAN GONZALEZ MD CM:WILVER 1611 21 CRISTIAN BRANCH MD 11/27/17 232 interface
--- NOTE | ~2017-11-24 | PR ---
[place], [place] PROGRESS NOTE NAME: CALI TAM [facility] #: [id number] UNIT #: [id number] ROOM: 503 DOCTOR: FELICIA TIMMONS MD BIRTHDATE: [birth year] DOS: 11/29/2017 SUBJECTIVE: The patient's discharge was canceled. She is on BiPAP. PHYSICAL EXAMINATION: GENERAL: She is a pleasant woman in no apparent distress. VITAL SIGNS: Stable. She is afebrile. HEENT: Normocephalic, atraumatic NECK AND THYROID: Supple. No JVD, thyromegaly, or lymphadenopathy. HEART: Normal S1, S2. Regular rate and rhythm. LUNGS: Clear to auscultation and percussion. ABDOMEN: Soft. Nontender, nondistended. Bowel sounds present. EXTREMITIES: Normal ROM. No clubbing. No edema. LABORATORY DATA: White count of 4.5, hemoglobin of 12.3, hematocrit 40.0, platelet count of ____. ASSESSMENT: 1. Mild neutropenia. 2. Thrombocytopenia. 3. Possible myelofibrosis. PLAN: Her counts are stable and getting better. We will just keep a close watch at this time. If any of the counts drop, then further intervention. Follow counts for now, discussed. FELICIA TIMMONS MD CM:PNTRANS 1146 1451 FELICIA TIMMONS MD 11/29/17 1450 interface
--- NOTE | ~2017-11-24 | PR ---
[place], [place] PROGRESS NOTE NAME: CALI TAM [facility] #: [id number] UNIT #: [id number] ROOM: 503 DOCTOR: KHLOE POOL DO BIRTHDATE: [birth year] DOS: 11/30/2017 SUBJECTIVE: The patient is seen and examined at bedside. The patient reports that she feels like she is improving; however, she has some difficulty with compliance of the BiPAP due to the anxiety that causes her and she did not like how the machine works; however, she is willing to continue to try it based on Dr. Gonzalez's recommendation. The patient also agrees to SNF for a rehab when the patient is medially stable for discharge. No new complaints at this time. OBJECTIVE: VITAL SIGNS: Temperature 98.1, pulse is 67, respirations 24, blood pressure 120/88, pulse ox is 100% on 3 liters nasal cannula. GENERAL: The patient alert and oriented x 3, no acute distress. HEENT: Head is atraumatic, normocephalic. Eyes are clear. No injection. Nares are patent. Membranes are moist. NECK: Supple, nontender. CARDIOVASCULAR: Regular rate and rhythm, no murmurs, gallops or rubs. LUNGS: Clear to auscultation, diminished breath sounds in all lung mota. ABDOMEN: Soft, nontender with positive bowel sounds and obese. EXTREMITIES: Mild 1+ edema in lower extremities, no erythema, no cyanosis, no clubbing. NEUROLOGIC: Negative focal deficits. LABORATORY DATA: White count 3.5, hemoglobin 11, hematocrit 36.9, platelets count 106. BMP, electrolytes normal, creatinine 1.58, glucose 86, calcium 8.1. ASSESSMENT AND PLAN: 1. Acute on chronic hypercapnic and hypoxic respiratory failure secondary to chronic obstructive pulmonary disease, status improving. PLAN OF CARE: Xanax 0.25 p.r.n. q.6 hours was added for anxiety related to the BiPAP machine use. Recommend the patient and asked the nurse for the Xanax to help with her compliance. No change right now regarding patient's bronchodilators, antibiotics and steroids. We will continue to follow. SNF for rehabilitation recommended at the time of discharge for continued rehabilitation before patient will be medically stable for discharge home. KHLOE POOL DO [place], [place] PROGRESS NOTE NAME: CALI TAM [facility] UNIT #: [id number] ROOM: [facility] DOCTOR: KHLOE POOL DO BIRTHDATE: [birth year] CRISTIAN GONZALEZ MD CM:PNTRANS 1348 [id number] KHLOE POOL DO 12/01/17 1001 interface
--- NOTE | ~2017-11-24 | PR ---
[place], [place] PROGRESS NOTE [id number] UNIT #: [id number] ROOM: 503 DOCTOR: EZEQUIEL WOODS MD BIRTHDATE: [birth year] DOS: 11/29/2017 SUBJECTIVE: The patient is quite confused this morning. As per the aids, the patient did not use the BiPAP during the night and she did not have oxygen early this morning for some reason. The patient had a bowel movement and was sitting in a mess in the bed. OBJECTIVE: VITAL SIGNS: Graphic trend shows a pressure of 134/62, pulse of 60, respirations 16, temperature 97.5. LUNGS: Diminished breath sounds. HEART: Regular. ABDOMEN: Obese. EXTREMITIES: Without any edema. NEUROLOGIC: The patient's mentation is slow. She did not respond like her usual self. ASSESSMENT AND PLAN: 1. Chronic hypercapnic respiratory failure, slightly worse today, possibly from not using her BiPAP. We will try to get an ABG and routine labs ordered. 2. Adult failure to thrive, may need to consider placement to a long-term care facility with the patient continues to do poorly. 3. Diastolic congestive heart failure, acute, which is better. Cardiac solano, the patient is stable. EZEQUIEL WOODS MD CM:PNTRANS [id number] [id number] EZEQUIEL WOODS MD 11/29/17 1517 interface
--- NOTE | ~2017-11-24 | CON ---
[place], [place] REPORT OF CONSULTATION NAME: CALI TAM UNIT #: [id number] ROOM: [place] [address] DOCTOR: HARSHIL JOLLY MD BIRTHDATE: [birth year] DOS: 11/26/2017 HISTORY OF PRESENT ILLNESS: This is an 82-year-old long-term patient with a history of diastolic heart failure, COPD, urinary tract infections, essential hypertension and chronic respiratory failure, mixed hyperlipidemia and aortic stenosis has been mentioned in past medical history as well as hypothyroidism. She also has morbid obesity. She was brought to the Emergency Department from her long-term residence because of increasing shortness of breath. She had been feeling weak and a little shaky, but she has chronic shortness of breath and she is not particularly mentioning that her breathing had gotten worse. She has had no chest pain or palpitation or swelling of the lower extremities and no loss of consciousness. SNF MEDICATIONS: Include numerous products, DuoNeb, acetaminophen, alprazolam, atenolol 25 daily, calcium carbonate, clopidogrel 75 daily, furosemide 40 mg daily, ferrous sulfate 325 mg daily, Colace 100 mg daily, hydrocodone/acetaminophen t.i.d. p.r.n., Imdur 30 daily, levothyroxine 100 mcg daily, lisinopril 2.5, Singulair, omeprazole, potassium chloride 10 mEq daily, simvastatin 10 daily, Septra-DS b.i.d., vitamin B complex, and Ambien. PHYSICAL EXAMINATION: GENERAL: This is a patient who is alert. Speech is very clear. She is oriented, comfortable. No thyromegaly or finger clubbing. Temperature is normal and she is not jaundiced. There is no anemia or cyanosis. VITAL SIGNS: Pulses regular at 56 beats per minute, blood pressure 120/58. NECK: Normal JVP. AJR is negative. Right carotid endarterectomy scar is noted. HEART: Auscultation reveals distant heart sounds. I barely appreciated an asystolic murmur over the apex. She has no edema in the lower extremities. Legs are somewhat large. RESPIRATORY: She has oxygen on and is not tachypneic and she has crackles in both lungs, more so on the left side. LABORATORY DATA: Chest x-ray demonstrated cardiomegaly and fibrosis/chronic interstitial changes. She had a CT angio of the chest last year and it demonstrated a coronary artery calcification. Hemoglobin 12 grams, WBC 3.8. BUN 23, creatinine 1.14, glucose 92 mg/dL, potassium 5.4 and a troponin less than 0.031. IMPRESSION: 1. The patient's dyspnea probably was due to exacerbation of chronic obstructive pulmonary disease. 2. There is a history of diastolic dysfunction/diastolic heart failure in this patient, but currently she does not have any cardiac decompensation. 3. A CT scan of the chest last year had demonstrated coronary artery calcification, which I presume indicates coronary artery disease. 4. Complete left bundle branch block This is an old finding. [place], [place] REPORT OF CONSULTATION [facility]: [id number] UN[facility] #: [id number] ROOM: [place] [address] DOCTOR: HARSHIL JOLLY MD BIRTHDATE: [birth year] I do not have any specific recommendation for this patient. Current medications should be continued. I thank you on behalf of Dr. Cheema for this consult. HARSHIL JOLLY MD CM:CONSTR:REPORT OF CONSULTATION 0614 11/26/17 0926 interface
--- NOTE | ~2017-11-24 | PR ---
[place], [place] PROGRESS NOTE NAME: CALI TAM UNIT #: [id number] ROOM: 503 DOCTOR: CRISTIAN SORIANO MD BIRTHDATE: [birth year] DOS: 11/30/2017 SUBJECTIVE: She has been currently assessed for placement admission to the [facility], a long-term acute care facility. The respiratory symptoms have been noted decreased. The shortness of breath of the patient has been noted decreased, this patient's mental status noted much improved for the patient. However, still she was fighting continue the BiPAP and refusing at certain times. OBJECTIVE: VITAL SIGNS: Reviewed, essentially were noted as normal. The pulse oxygen saturation recorded at 3 liters 100%. LUNGS: Auscultation of the chest was noted with expiratory wheezing with decreased breath sounds. ABDOMEN: Soft and obese. EXTREMITIES: Without any edema. LABORATORY DATA: CBC: WBC count 3.5, hemoglobin 11.1, hematocrit 36.6, platelet count 106,000. The BMP of patient BUN 56, creatinine 1.58. IMPRESSION: 1. The patient with pancytopenia, most likely viral in origin. 2. The patient with medication induced acute on chronic hypercapnic and hypoxic respiratory failure secondary to exacerbation of chronic obstructive pulmonary disease with slow improvement, continued severe debility. She agreed for transfer this patient to [facility]. Other medications to be continued. The patient has previously ordered without any changes. The patient was seen today with [id number] encounter. History of patient was personally confirmed from the patient, physical examination performed. Labs were reviewed. Assessment management personally completed. Note done by the medical billing manager was approved as well. [place], [place] PROGRESS NOTE NAME: CALI TAM UNIT #: [id number] ROOM: 503 DOCTOR: CRISTIAN SORIANO MD BIRTHDATE: [birth year] CRISTIAN GONZALEZ MD CM:PNTRANS 1446 02 CRISTIAN BRANCH MD 11/30/17 230 interface
--- NOTE | ~2017-11-24 | PR ---
[place], [place] PROGRESS NOTE NAME: CALI TAM [facility] #: [id number] UNIT #: [id number] ROOM: 503 DOCTOR: FELICIA TIMMONS MD BIRTHDATE: [birth year] DOS: 11/28/2017 SUBJECTIVE: The patient is doing better. She is stable. REVIEW OF SYSTEMS HEENT: No trouble swallowing. No double vision. No loss of vision. No pain. ENT AND RESPIRATORY: No wheeze. No change in voice. No cough. No shortness of breath. No coughing up blood. No epistaxis. CARDIOLOGIC: No chest pain. No dizziness. No irregular heartbeat. No leg edema. No palpitations. No shortness of breath. HEMATOLOGIC AND LYMPH: No past transfusion. No fatigue. No loss of appetite. No easy bruising. GASTROENEROLOGIC: No change in bowel habits. No vomiting blood. No abdominal cramping. No nausea. No vomiting. No diarrhea. No constipation. No blood in stool. FEMALE REPRODUCTIVE: No dyspareunia. No pelvic pain. MUSCULOSKELETAL: No back pain. No muscle pain or weakness. No tingling/numbness. UROLOGIC: No pain with urination. No difficulty urinating. No frequent urination. NEUROLOGIC: No burning pain in feet. No trouble with coordination. No loss of consciousness. No headache. No tingling/numbness. No memory loss. PHYSICAL EXAMINATION: GENERAL: Pleasant woman in no apparent distress. VITAL SIGNS: Blood pressure 140/50. HEENT: Normocephalic, atraumatic NECK AND THYROID: Supple. No JVD, thyromegaly, or lymphadenopathy. HEART: Normal S1, S2. Regular rate and rhythm. LUNGS: Clear to auscultation and percussion. ABDOMEN: Soft. Nontender, nondistended. Bowel sounds present. EXTREMITIES: Normal ROM. No clubbing. No edema. LABORATORY DATA: Hemoglobin 11.8, hematocrit 38.1. Creatinine 1.7. White count of 4.2, platelet count of 132. ASSESSMENT: 1. Anemia, probably chronic disease. 2. Mild neutropenia. PLAN: Overall, she is getting better. We will just keep a close watch on her at this time. If counts drop or anything different then further intervention was discussed with the patient. [place], [place] PROGRESS NOTE NAME: CALI TAM UNIT #: [id number] ROOM: 503 DOCTOR: FELICIA TIMMONS MD BIRTHDATE: [birth year] FELICIA TIMMONS MD CM:WILVER [id number] FELICIA TIMMONS MD 11/28/17 2333 interface
--- NOTE | ~2017-11-24 | PR ---
[place], [place] PROGRESS NOTE NAME: CALI TAM [facility] #: [id number] UNIT #: [id number] ROOM: 503 DOCTOR: LISA BRANCH MD,CRISTIAN BIRTHDATE: [birth year] DOS: 12/01/2017 PULMONARY PROGRESS ADDENDUM NOTE SUBJECTIVE: The patient has been noted, at this time, comfortable, resting on the bed, used the BiPAP for some time, but not all what is recommended. This morning, the patient was sitting on the chair. OBJECTIVE: VITAL SIGNS: She was noted low-grade fever yesterday evening of 100.2 degrees Fahrenheit, later noted afebrile status. The respiratory rate of the patient recorded at 20, heart rate 70, blood pressure 137/71-123/47. Pulse oxygen saturation of the patient was also noted as 98% on 3 liters nasal cannula. LUNGS: Noted with general reduction in the breath sounds. Expiratory wheezing. No crackles. ABDOMEN: Soft and obese. EXTREMITIES: Chronic obesity. MUSCULOSKELETAL: No deformities. SKIN: No lesions or rashes. CENTRAL NERVOUS SYSTEM: Intact. Confusion was noted better. The patient noted with appropriate conversation this morning. LABORATORY DATA: CBC: WBC count was 4.4, hemoglobin 11.9, hematocrit normal, platelet count decreased at 118,000. Arterial blood gas pH of 7.31, pCO2 29.9, pO2 62.3 noted on 3 liter nasal cannula that was done this morning at 08:15. IMPRESSION: 1. The patient has been noted with current resolving pancytopenia, still noted with thrombocytopenia and leukopenia. This is secondary to acute viral infection. 2. Acute on chronic hypercapnic hypoxic respiratory failure. 3. Suspected obstructive sleep apnea disorder. 4. Severe debility, persistent. 5. Low-grade fever. PLAN OF MANAGEMENT: The patient will be transferred to [facility] for the long-term acute care. She will be recommended continue to use the BiPAP as advised to improve the respiratory failure and hypercapnia. Continue bronchodilators, oxygen supplementation, corticosteroids and the other antibiotics as well as supportive care. The patient was independently seen and examined with [id number] encounter. History was confirmed, physical examination performed. The assessment, management for the patient was personally made. The note done by the medical physiologist was approved as well. [place], [place] PROGRESS NOTE NAME: CALI TAM UNIT #: [id number] ROOM: 503 DOCTOR: CRISTIAN SORIANO MD BIRTHDATE: [birth year] CRISTIAN GONZALEZ MD CM:WILVER [id number] CRISTIAN BRANCH MD 12/01/17 2317 interface
--- NOTE | ~2017-11-24 | PR ---
[place], [place] [facility]GRESS [id number] UNIT #: [id number] ROOM: 503 DOCTOR: SHA MENDEZ MD BIRTHDATE: [birth year] DOS: 11/28/2017 SUBJECTIVE: The patient was seen by Dr. Foley on my behalf yesterday. Cardiac status appears to be stable. Hemodynamically much more stable. REVIEW OF SYSTEMS: Improved. OBJECTIVE: VITAL SIGNS: Blood pressure is 140/50. The patient is in sinus rhythm. NECK: Supple, no JVD. LUNGS: Fairly clear. HEART: Sounds are regular. ABDOMEN: Soft, nontender. NEUROLOGIC: Appears to be stable. Her pCO2 was 72 and pO2 of 65. LABORATORY DATA: Shows hemoglobin 11.8, hematocrit 38.1, creatinine is 1.7, and potassium of 5. IMPRESSION: The patient with pancytopenia, diastolic congestive heart failure, chronic obstructive pulmonary disease exacerbation, aortic stenosis, mixed hyperlipidemia, essential hypertension, status post carotid endarterectomy. RECOMMENDATIONS: Continue with the present management as ordered. Dr. Kerns and Dr. Taveras is following the patient. Continue the present care. Chronic left bundle branch block also and I will follow up. SHA MENDEZ MD CM:PNTRANS [id number] 5 SHA MENDEZ MD 11/28/17 0806 interface
--- NOTE | ~2017-11-24 | PR ---
[place], [place] PROGRESS NOTE NAME: CALI TAM [facility] #: [id number] UNIT #: [id number] ROOM: [place] [address] DOCTOR: EZEQUIEL WOODS MD BIRTHDATE: [birth year] DOS: SUBJECTIVE: The patient is sitting up in bed today , ate her breakfast, is off of BiPAP. She continues to have tremoring of the upper extremities. OBJECTIVE: VITAL SIGNS: Blood pressure is 122/45, pulse of 66, respirations 20, temperature 97.9. LUNGS: Diminished breath sounds. No wheezes, rales or rhonchi heard. HEART: Regular. ABDOMEN: Obese, soft. EXTREMITIES: Without any edema. ABG pending this morning. ASSESSMENT AND PLAN: 1. Acute hypercapnic respiratory failure. She has used the BiPAP during the night hoping that the pCO2 levels have come down. 2. Myelodysplastic syndrome. We will ask Dr. Kerns to follow up the patient because she did not see him as an outpatient once discharged last time. 3. Benign hypertension, controlled. 4. Diastolic congestive heart failure, resolved. The plan is to discharge her to home as soon as the CO2 levels come down. ABG is pending, hopefully tomorrow. EZEQUIEL WOODS MD CM:PNTRANS [phone] EZEQUIEL WOODS MD 11/27/1707 interface
--- NOTE | ~2017-11-24 | PR ---
[place], [place] PROGRESS NOTE NAME: CALI TAM UNIT #: [id number] ROOM: 503 DOCTOR: LISA BRANCH MD,CRISTIAN BIRTHDATE: [birth year] DOS: 11/29/2017 SUBJECTIVE: She has been noted with confusional status this morning as seen earlier by Dr. Maricarmen Elliott. She was seen today. History was confirmed. Physical examination was performed. Assessment and management, which were done by the diagnostic medical sonographer, was approved. The patient has not used the BiPAP last night. She is using the oxygen supplementation. She has been noted without any symptoms of hemoptysis, chest pain or others. She was noted with somewhat fatigued and tired. OBJECTIVE: VITAL SIGNS: Reviewed and noted as normal temperature, respiratory rate 16-19, heart rate 60, and blood pressure 134/62. Pulse oxygen saturation on 2 liters nasal cannula 96% saturation. HEENT: No acute change at this time. NECK: Supple. CARDIOVASCULAR: S1, S2 audible. LUNGS: Moderate decreased breath sounds without any wheezing. ABDOMEN: Soft, obese, nontender. EXTREMITIES: Show chronic obesity without any edema. CENTRAL NERVOUS SYSTEM: Change in mental status of the patient. SKIN: No lesions or rashes. MUSCULOSKELETAL: No deformities. LABORATORY DATA: Today arterial blood gas pH of 7.26, pCO2 of 67, pO2 of 83.9. The CBC of the patient this morning: WBC count 4.5, otherwise CBC normal. BMP today: BUN 63, creatinine 2.01. CO2 34. IMPRESSION: 1. The patient with acute on chronic hypercapnic hypoxic respiratory failure. Worsening of hypoxia was noted again because of lack of use of the BiPAP. 2. Acute exacerbation of chronic obstructive pulmonary disease, which is already treated with corticosteroids, bronchodilators, and others. PLAN OF MANAGEMENT: Application of BiPAP has been ordered for the patient and the patient should comply with that to improve the hypercarbia. Based on the current intermittent deterioration, the patient should benefit from the placement in [facility] facility for further close observation of medical problem prior to consideration for home discharge. Other medical management to be continued as previously. Usual care. Additional treatment changes need to be done based on the progression of the illness. [place], [place] PROGRESS NOTE NAME: CALI TAM UNIT #: [id number] ROOM: [facility] DOCTOR: CRISTIAN SORIANO MD BIRTHDATE: [birth year] CRISTIAN GONZALEZ MD CM:PNTRANS [phone] 5 CRISTIAN BRANCH MD 11/30/17205 interface
--- NOTE | ~2017-11-24 | DS ---
[place], [place] DISCHARGE SUMMARY NAME: CALI TAM [facility] #: [id number] UNIT #: [id number] ROOM: [place] [address] DOCTOR: EZEQUIEL WOODS MD BIRTHDATE: [birth year] DOS: DIAGNOSES: 1. Acute hypercapnic respiratory failure. 2. Pulmonary fibrosis with underlying chronic obstructive pulmonary disease. 3. Chronic respiratory failure. 4. Hypoxemia. 5. Benign hypertension. 6. Mixed hyperlipidemia. 7. Hypothyroidism. 8. Chronic back pain. 9. Myelodysplastic syndrome. Avoid narcotic sleepers, anxiolytics in this patient. Oxygen 2 liter per minute nasal cannula continuous. DISCHARGE MEDICATIONS: Acetazolamide 250 b.i.d., Singulair 10 daily, Zocor 10 daily, Colace 100 daily, Plavix 75 daily, levothyroxine 100 mcg daily, lisinopril 2.5 daily, Neurontin 100 t.i.d., potassium 10 daily, Lasix 40 daily, levothyroxine 100 mcg daily, vitamin B complex 1 tablet daily, atenolol 25 daily, iron 325 daily, calcium bicarbonate 500 daily, DuoNeb q. 4 p.r.n. and twice a day straight, Isordil 30 daily, nystatin cream for local application daily, Tylenol ____ two tablets q. 6 p.r.n., Xanax 0.5 twice a day p.r.n., omeprazole 20 daily. As outpatient please make up appointments with Dr. Kerns and Dr. Cheema. HOSPITAL COURSE: The patient is 82 years old, comes in with tiredness, weakness and shortness of breath. Seen in the Emergency Room, was evaluated and was found to have acute diastolic CHF as per the ER and was admitted. After admission, the patient was given diuretics. She was found to be hypercapnic and alkalotic. Diamox was added and BiPAP was started. The patient used it for a few hours, but then later refused. Cardiology consultation was obtained. Dr. Foley saw the patient. The patient is overall stable and improved and is not having any new problems. Had a recent UTI which is resolved. Urine culture has come back negative, so she does not need to be on any antibiotics. In this patient, we should avoid giving her narcotics, anxiolytics and sleeping medications because it increases the risk of hypercapnic respiratory failure. She also should be on a low sodium diet. [place], [place] DISCHARGE SUMMARY NAME: CALI TAM [facility] #: [id number] UNIT #: [id number] ROOM: [place] [address] DOCTOR: EZEQUIEL WOODS MD BIRTHDATE: [birth year] EZEQUIEL WOODS MD CM:DISCHRAQUEL [phone] EZEQUIEL WOODS MD 11/26/17 2106 interface
--- NOTE | ~2017-11-24 | CON ---
[place], [place] REPORT OF CONSULTATION NAME: CALI TAM [facility] #: [id number] UNIT #: [id number] ROOM: [place] [address] DOCTOR: CRISTIAN SORIANO MD BIRTHDATE: [birth year] DOS: 11/26/2017 CONSULTATION REQUESTED BY: Dr. Maricarmen Elliott. REASON FOR CONSULTATION: For assessment of hypercapnic acute respiratory failure. HISTORY OF PRESENT ILLNESS: This is an 82-year-old white female admitted under the care of Dr. Maricarmen Elliott on 11/24/2017. The patient was noted with symptoms of increased shortness of breath and noted with general weakness and fatigue. She has been noted with urinary tract infection which has been treated previously with antibiotics. The patient has been managed in the hospital and was considered for home discharge today. She has been noted hypoxia. Arterial blood gas was also noted with significant hypercarbia. The patient denies symptoms of chest pain, but does complain of some tightness in the chest. The cough has been noted to be mild without any sputum expectoration, no symptoms of hemoptysis. REVIEW OF SYSTEMS: CONSTITUTIONAL: Still noted symptoms of fatigue and tiredness. Denies symptoms of fever or chills. EYES: Denies any burning, redness, tenderness. EARS, NOSE, THROAT SYMPTOMS: Denies sore throat, hoarseness, otalgia, postnasal drainage or epistaxis. CARDIOVASCULAR: No angina pain, edema or pain of the lower extremity. GASTROINTESTINAL: No dysphagia, nausea, vomiting, diarrhea, abdominal pain, hematemesis, melena, hematochezia. History of chronic obesity. There was abnormal weight loss history. GENITOURINARY SYMPTOMS: No dysuria, suprapubic pain, hematuria or urinary incontinence. SKIN: Denies lesions or rashes. CENTRAL NERVOUS SYSTEM: Denies any dizziness, headache, or diplopia. General weakness was described. Remaining systems were reviewed for the patient, they were noted all negative. PAST MEDICAL HISTORY: 1. Chronic obstructive pulmonary disease. 2. Chronic hypoxic respiratory failure. 3. Chronic hypercapnic respiratory failure as well. 4. Essential hypertension. 5. Mixed hyperlipidemia. 6. Aortic stenosis. 7. Hypothyroidism. 8. Failure to thrive as an adult. 9. History of myelofibrosis. PAST SURGICAL HISTORY: 1. Left carotid endarterectomy. 2. Partial thyroidectomy for goiter. [place], [place] REPORT OF CONSULTATION NAME: CALI TAM UNIT #: [id number] ROOM: [place] [address] DOCTOR: LISA BRANCH MD,CRISTIAN BIRTHDATE: [birth year] 3. Cardiac catheterization. SOCIAL HISTORY: The patient is , has 3 children, lives at home. Denies history of alcohol use, illicit drug use. Tobacco use noted 1 pack of cigarettes per day that was discontinued in 2003. She has worked 20 years in [employer] as well. Denies any chronic alcohol use or any history of illicit drug use. FAMILY HISTORY: Noted and was noncontributory. CURRENT MEDICATIONS ADMINISTERED: Noted use of, 1. Solu-Medrol patient starting today 30 mg b.i.d. 2. Diamox 250 mg p.o. b.i.d. 3. Thiamine 100 mg p.o. daily. 4. Potassium chloride 10 mEq p.o. daily. 5. Lisinopril 2.5 mg daily. 6. Imdur 30 mg daily. 7. Lasix 40 mg daily. 8. Ferrous sulfate 325 mg p.o. daily. 9. Plavix 75 mg daily. 10. Atenolol 25 mg daily. 11. Omeprazole 20 mg daily. 12. Synthroid 100 mcg daily. 13. Simvastatin 100 mg daily. 14. Gabapentin 100 mg p.o. t.i.d. 15. DuoNeb every 4 hours while awake. DRUG ALLERGY HISTORY: 1. PENICILLIN. 2. LYRICA. PHYSICAL EXAMINATION: GENERAL: This is an 82-year-old white female currently using the BiPAP for this morning, as it started, the patient was noted comfortable with the patient awake and alert, follows vocal commands. Height for the patient noted 5 feet 1 inch, weight of 88 kg, BMI 32.3 noted on admission. VITAL SIGNS: For the patient shows a normal temperature. The respiratory rate of the patient recorded as 14, heart rate 74, blood pressure 112/53. Pulse oxygen saturation of the patient recorded as 94% oxygen saturation 3 liters cannula. HEENT: Examination shows head was atraumatic. Eyes nonicterus. NECK: Supple. Decreased posterior pharyngeal space, high tongue base, and crowding soft tissue structures. Oral mucosa moist. CARDIOVASCULAR: S1, S2 is audible. LUNGS: The patient was noted without any crackles, rhonchi, or wheezing at the present time. Breaths are noted generally diminished bilaterally. ABDOMEN: Noted with moderate obesity. EXTREMITIES: The patient noted without any edema, clubbing or cyanosis. CENTRAL NERVOUS SYSTEM: Cranial nerves intact. MUSCULOSKELETAL: No deformities. [place], [place] REPORT OF CONSULTATION NAME: CALI TAM UNIT #: [id number] ROOM: [place] [address] DOCTOR: LISA BRANCH MD,CRISTIAN BIRTHDATE: [birth year] SKIN: Visible skin with no lesions or rashes. LABORATORY DATA: CBC of the patient, 11/24/2017; WBC count 3.8, hemoglobin 12, hematocrit 39.1, platelet count was noted as normal. CMP of the patient, 11/24/2017; BUN 23, creatinine 1.14. Potassium 5.4, chloride of 92, CO2 of 39, remaining CMP was normal. BMP of the patient that was done yesterday; BUN 22, creatinine 1.17. Carbon dioxide 44. The arterial blood gas that was done yesterday; pH of 7.33, pCO2 of 76.8, pO2 80.3 that was done on 3 liter nasal cannula supplementation oxygen. Urine culture, no bacterial growth from 11/24/2017 of this month. Arterial blood gas this morning; pH of 7.22, pCO2 95.9, pO2 of 90.2 for the patient prior to initiation of the BiPAP, 2 hours after the BiPAP the patient with adjusted pH of 7.32, pCO2 of 74.9, pO2 of 59.2 with 35% oxygen on the BiPAP. RADIOLOGY DATA: Reviewed for the patient. Chest x-ray of patient on 11/24/2017 was noted with finding of pulmonary venous congestion. Congestive heart failure. Chest x-ray 2-view was noted with improvement in the pulmonary venous congestion, increased interstitial markings still remains. Cardiomegaly for the patient was present. Elevation of the left hemidiaphragm was also noted. IMPRESSION: 1. The patient currently to the hospital noted with a combination of possibility of exacerbation of chronic obstructive pulmonary disease. 2. Acute superimposed congestive heart failure with history of aortic stenosis as well. Elevation of the left hemidiaphragm for the patient rule out any diaphragmatic paralysis on the left side. 3. The patient with chronic obesity. 4. Suspected diagnosis of obstructive sleep apnea disorder as well. 5. Congestive heart failure was considered with diastolic dysfunction as well. 6. History of myelofibrosis which has been monitored and managed by the medical oncologist, Dr. Kerns. 7. The patient with metabolic alkalosis secondary to intravascular volume depletion and chronic hypercarbia as well. PLAN OF MANAGEMENT: The patient will be continued on the current setting the BiPAP. However, the oxygen supplementation to be increased for the patient to maintain an oxygen saturation of 92% greater. Bronchodilators for the patient to be continued as ordered. Current dose Solu-Medrol will be suffice. At this time, I do not believe the patient needs any other antibiotic of different kind. Diuretic therapy for the patient as well. Cardiology assessment has been already completed. Follow the recommendations. DVT prophylaxis. Usual care, other supportive therapy, plan of management and care plan. All other supportive plan of therapy and care. Additional treatment changes will be made based on the progression of the illness. Diamox for the patient already began 250 mg 2 times a day, which should suffice. Bronchodilators as previously. Usual care. Additional treatment changes will be continued to be made based on the progression of the illness. Supportive care. Bronchodilators administration. BiPAP to be continued most of the time except meals for the next 24 hours. Fluoroscopy, left hemidiaphragm will be done for the patient upon the patient improvement in the overall medical status to exclude the left [place], [place] REPORT OF CONSULTATION NAME: CALI TAM UNIT #: [id number] ROOM: [place] [address] DOCTOR: CRISTIAN SORIANO MD BIRTHDATE: [birth year] diaphragmatic paralysis. Thanks for allowing me to participate in the care of this patient. CRISTIAN GONZALEZ MD CM:CONSTR:REPORT OF CONSULTATION 1553 11/26/17 3928 interface
--- NOTE | ~2017-11-24 | DS ---
[place], [place] DISCHARGE SUMMARY [id number] UNIT #: [id number] ROOM: 503 DOCTOR: EZEQUIEL WOODS MD BIRTHDATE: [birth year] DOS: HOSPITAL COURSE: The patient is 82-year-old. I have already dictated discharge summary once. The patient developed severe hypercapnia and continued to get worse, so the discharge was held, was transferred to ICU, placed on BiPAP and IV steroids for exacerbation. Dr. Taveras did see the patient and agreed on the treatment plan. She has improved after discontinuation of anxiolytic and insomnia medications as well as the pain medications. Her tremors have improved and the metabolic alkalosis is corrected, so the plan therefore is to discharge her to home today. She may have underlying obstructive sleep apnea, would benefit from continued usage of BiPAP at night, 12 x 6 of the settings with 4 liters of back up oxygen flow. The plan is to discharge to home today. PT/OT will be consulted when she arrives. EZEQUIEL WOODS MD CM:DISCHARG [phone] EZEQUIEL WOODS MD 11/28/17 1053 interface
--- NOTE | ~2017-11-24 | PR ---
[place], [place] PROGRESS NOTE NAME: CALI TAM [facility] #: [id number] UNIT #: [id number] ROOM: 503 DOCTOR: FELICIA TIMMONS MD BIRTHDATE: [birth year] DOS: 12/01/2017 SUBJECTIVE: The patient is doing better. She is alert and oriented. REVIEW OF SYSTEMS: HEENT: No trouble swallowing. No double vision. No loss of vision. No pain. ENT AND RESPIRATORY: No wheeze. No change in voice. No cough. No shortness of breath. No coughing up blood. No epistaxis. CARDIOLOGIC: No chest pain. No dizziness. No irregular heartbeat. No leg edema. No palpitations. No shortness of breath. HEMATOLOGIC AND LYMPH: No past transfusion. No fatigue. No loss of appetite. No easy bruising. GASTROENTEROLOGIC: No change in bowel habits. No vomiting blood. No abdominal cramping. No nausea. No vomiting. No diarrhea. No constipation. No blood in stool. FEMALE REPRODUCTIVE: No dyspareunia. No pelvic pain. MUSCULOSKELETAL: No back pain. No muscle pain or weakness. No tingling/numbness. UROLOGIC: No pain with urination. No difficulty urinating. No frequent urination. NEUROLOGIC: No burning pain in feet. No trouble with coordination. No loss of consciousness. No headache. No tingling/numbness. No memory loss. PHYSICAL EXAMINATION: GENERAL: She is a pleasant woman in no acute distress. VITAL SIGNS: Stable. She is afebrile. HEENT: Normocephalic, atraumatic NECK AND THYROID: Supple. No JVD, thyromegaly, or lymphadenopathy. HEART: Normal S1, S2. Regular rate and rhythm. LUNGS: Clear to auscultation and percussion. ABDOMEN: Soft. Nontender, nondistended. Bowel sounds present. EXTREMITIES: Normal ROM. No clubbing. No edema. LABORATORY DATA: White count 4.4, hemoglobin 11.9, hematocrit 38.3, and platelet 180,000. ASSESSMENT: 1. Possible myelofibrosis. 2. Pancytopenia. 3. Exacerbation of chronic obstructive pulmonary disease. PLAN: The patient may be transferred to [facility] for further management. In case her hemoglobin and hematocrit drop or white count drops further, then further intervention discussed. [place], [place] PROGRESS NOTE NAME: CALI TAM UNIT #: [id number] ROOM: 503 DOCTOR: FELICIA TIMMONS MD BIRTHDATE: [birth year] FELICIA TIMMONS MD CM:PNTRANS 1 52 FELICIA TIMMONS MD 12/01/171951 interface
--- NOTE | ~2017-11-24 | PR ---
[place], [place] PROGRESS NOTE NAME: CALI TAM UNIT #: [id number] ROOM: 503 DOCTOR: YRN KHLOE BIRTHDATE: [birth year] DOS: 11/28/2017 SUBJECTIVE: The patient is seen and examined at bedside. The patient was sitting upright in bed in no acute distress. The patient reports that she feels much better and she is requesting to be discharged home. The patient has no new complaints at this time. The patient reports her breathing has improved. OBJECTIVE: VITAL SIGNS: Temperature is 98.6, pulse is 65, respirations 18, blood pressure 133/75, pulse ox is 97% on 3 liters nasal cannula. GENERAL APPEARANCE: The patient is alert and oriented times 3, no acute distress. HEENT: Eyes are clear. No injection. Nares are patent. Mucous membranes are moist. NECK: Supple, nontender. LUNGS: Without any wheezing or crackles, diminished breath sounds in all lung mota. CARDIOVASCULAR: S1, S2 are audible. Regular rate and rhythm. No murmurs, gallops or rubs. ABDOMEN: Soft, nontender with positive bowel sounds. EXTREMITIES: No edema, no erythema, no clubbing, no cyanosis. SKIN: Without lesions or rashes. MUSCULOSKELETAL: No deformities. LABORATORY DATA: White count is 4.2, hemoglobin 11.8, hematocrit 38.7, platelets count 132. Chemistries: Sodium 137, potassium 5.0, chloride 95, carbon dioxide 35, BUN 46, creatinine 1.72. Glucose 89. Calcium 9.0. Micro, urine cultures are negative. MRSA screening negative. IMPRESSION: 1. Resolving acute on chronic hypercapnic and hypoxic chronic obstructive pulmonary disease. 2. Chronic obesity. 3. Debility. 4. Metabolic alkalosis. TREATMENT PLAN: The patient continues to improve clinically, continue with current dose of steroids, bronchodilator and oxygen supplementation. The patient tolerates BiPAP well. We will continue to follow the patient's care and assess for clinical stability for discharge. KHLOE POOL DO [place], [place] PROGRESS NOTE NAME: CALI TAM UNIT #: [id number] ROOM: [facility] DOCTOR: KHLOE POOL DO BIRTHDATE: [birth year] CRISTIAN GONZALEZ MD CM:PNHERNANDEZ [id number] KHLOE POOL DO 11/28/17 1541 interface
--- NOTE | ~2017-11-24 | PR ---
[place], [place] PROGRESS NOTE NAME: CALI TAM [facility] #: [id number] UNIT #: [id number] ROOM: [place] [address] DOCTOR: EZEQUEIL WOODS MD BIRTHDATE: [birth year] DOS: 11/26/2017 SUBJECTIVE: She was in deep sleep this morning, was difficult to arouse her. She did open her eyes, does not remember seeing Dr. Foley who saw the patient earlier. OBJECTIVE: VITAL SIGNS: Graphic trend shows a pressure 120/58, pulse of 55, respirations 20, temperature 98.2. LUNGS: Diminished breath sounds. No wheezes heard. HEART: Regular. ABDOMEN: Obese. EXTREMITIES: Without any edema. LABORATORY DATA: Urine culture showed no bacterial growth. ASSESSMENT AND PLAN: 1. The patient with hypercapnic respiratory failure, possibly from a combination of narcotics and sleepers, avoid those meds. She was ordered BiPAP, she used it a few hours, but refused to put it back on at night. We will do a blood gas today. If it looks better, the plan is [facility]. 2. Recent urinary tract infection, resolved. 3. Acute diastolic congestive heart failure, clinically better. Dr. Foley saw the patient and agreed the patient can go back. EZEQUIEL WOODS MD CM:PNTRANS [id number] EZEQUIEL WOODS MD 11/26/17 2249 interface
--- NOTE | ~2017-11-24 | PR ---
[place], [place] PROGRESS NOTE NAME: CALI TAM [facility] #: [id number] UNIT #: [id number] ROOM: 503 DOCTOR: EZEQUIEL WOODS MD BIRTHDATE: [birth year] DOS: SUBJECTIVE: The patient is doing fine without any new complaints. Appreciate Dr. Taveras's, Dr. Cheema's and Dr. Foley's input. OBJECTIVE: VITAL SIGNS: Graphic trend shows blood pressure of 104/52, pulse of 67, respirations 20, temperature 98.1. LUNGS: Clear. HEART: Regular. ABDOMEN: Obese, soft. EXTREMITIES: Without any edema. ASSESSMENT AND PLAN: 1. Hypercapnic respiratory failure. This has improved. The patient's tremors have resolved. 2. Chronic obstructive pulmonary disease with chronic respiratory failure without any exacerbation. Right now we will discontinue IV steroids. 3. Metabolic alkalosis, on Diamox, which has also corrected with the medicine. The plan is to discharge her back to the intermediate. We need to look and see whether we can arrange for BiPAP for her to use at the intermediate. EZEQUIEL WOODS MD CM:PNTRANS [phone] EZEQUIEL WOODS MD 11/28/17 1122 interface
--- NOTE | ~2017-11-24 | PR ---
[place], [place] PROGRESS NOTE [facility] #[facility] [id number] UNIT #: [id number] ROOM: 503 DOCTOR: EZEQUIEL WOODS MD BIRTHDATE: [birth year] DOS: 11/30/2017 SUBJECTIVE: The patient is awake and alert today, does not have any new complaints. She feels better. Denies any chest pains or palpitations. She is sitting up, eating her breakfast without any improvement and change in mentation. PHYSICAL EXAMINATION: VITAL SIGNS: Blood pressure is 128/62, pulse of 59, respirations 20, temperature 98.3. LUNGS: Clear. HEART: Regular. ABDOMEN: Soft. EXTREMITIES: Without any edema. ASSESSMENT AND PLAN: 1. Acute kidney injury, possibly from over diuresis. This is improved. We will discontinue IV fluids. 2. Acute hypercapnic respiratory failure, on a BiPAP. The Trilogy ventilator is to be used at the care home. 3. Diastolic congestive heart failure, resolved. 4. Myelofibrosis. Follow up with Dr. Kerns as an outpatient. Plan is to discharge her back to the care home today. EZEQUIEL WOODS MD CM:PNTRANS [id number] EZEQUIEL WOODS MD 11/30/17 1520 interface
--- NOTE | ~2017-11-24 | WRIGHTHP ---
[place], [place] PATIENT HISTORY AND PHYSICAL EXAM NAME: CALI TAM [facility] #: [id number] UNIT #: [id number] ROOM: 509 DOCTOR: EZEQUIEL WOODS MD BIRTHDATE: [birth year] DOS: 11/24/2017 HISTORY OF PRESENT ILLNESS: This patient is 82 years old. The patient lives in [facility]. Nursing staff stated that she had some mild shortness of breath and she was quite weak and did not feel good, so the patient was sent out. She was just diagnosed with a UTI, was placed on Bactrim and had almost finished taking her antibiotics. She denies having any chest pains or palpitations. She complains of tremors this morning. Denies having any fever, any chills. PAST MEDICAL HISTORY: Significant for: 1. Adult failure to thrive. She is mcc placed. 2. History of pancytopenia, possible myelodysplasia, has seen Dr. Kerns in the past. 3. COPD, oxygen dependent. 4. Benign hypertension. 5. Chronic respiratory failure with hypercapnia with resultant tremors. Avoid narcotics if possible. 6. Benign hypertension. 7. Mixed hyperlipidemia. 8. Aortic stenosis. 9. Hypothyroidism. MEDICATIONS ON DISCHARGE: Tylenol 325 q.6; DuoNeb q.4; Xanax 0.5 twice a day; atenolol 25 daily; calcium 500 daily; Plavix 75 daily; Colace 100 daily; iron 325 daily; Lasix 40 daily; gabapentin 100 t.i.d.; hydrocodone 5 t.i.d.; Isordil 30 daily; levothyroxine 100 mcg daily and 1.5 pill Monday and Monday; lisinopril 2.5 daily; zolpidem 10 at bedtime; Septra, which she is currently on for UTI; vitamin B complex; potassium 10 daily; Zocor 10 daily. SOCIAL HISTORY: Nonsmoker. PHYSICAL EXAMINATION: GENERAL: She is awake and alert and oriented. She is forgetful. VITAL SIGNS: Blood pressure is 111/48, pulse of 70, respirations 18, temperature 98.6. LUNGS: Clear. HEART: Regular. ABDOMEN: Soft. EXTREMITIES: Without any edema. ASSESSMENT AND PLAN: 1. The patient presents with shortness of breath, mild congestive heart failure, diastolic, seen on the chest x-ray. We will consult Dr. Cheema, who has seen the patient in the past. An echocardiogram will be ordered. 2. Myelodysplasia causing pancytopenia and Dr. Kerns has seen the patient before. We will ask him to follow the patient as an outpatient. 3. Tremors. The patient develops hypercapnia when she takes high doses of pain medications and avoid this if possible. ABG will be ordered this morning. Consider Diamox. [place], [place] PATIENT HISTORY AND PHYSICAL EXAM NAME: CALI TAM [facility] #: [id number] UNIT #: [id number] ROOM: [facility] DOCTOR: EZEQUIEL WOODS MD BIRTHDATE: [birth year] 4. Benign hypertension, controlled. EZEQUIEL WOODS MD CM:HISPHYS:PATIENT HISTORY AND PHYSICAL EXAMINATION [id number] EZEQUIEL WOODS MD 11/25/17 1524 interface
--- NOTE | ~2017-11-24 | PR ---
[place], [place] PROGRESS NOTE NAME: CALI TAM [facility] #: [id number] UNIT #: [id number] ROOM: 503 DOCTOR: KHLOE POOL DO BIRTHDATE: [birth year] DOS: 12/01/2017 SUBJECTIVE: The patient is seen and examined, sitting in bedside chair upright in no acute distress. The patient reports that her breathing has improved. She was mildly agitated at the housestaff that was assisting her at that time; however, she has no new complaints at this time. The patient is agreeable to [facility] for further care once a bed becomes available and is received. The patient continues to be compliant on the BiPAP machine with no issues. OBJECTIVE: VITAL SIGNS: Temperature is 98.1, pulse is 70, respirations 20, blood pressure 137/70, pulse ox is 98% on 3 liters nasal cannula. LABORATORY DATA: White count 4.4, hemoglobin 11.9, hematocrit 38.3, white count 118. Blood gasses this morning, pH 7.3, pCO2 49.9, pO2 is 62.3. Chemistries were reviewed. Electrolytes are normal. Renal function stable. Urine culture and MRSA surveillance remain negative. PHYSICAL EXAMINATION: GENERAL: The patient is alert and awake and oriented, mild distress. HEENT: Eyes are clear. No injection. Nares are patent. Mucous membranes are moist. NECK: Supple and nontender. PULMONARY: Diminished breath sounds in all lung mota with mild expiratory wheezing. No rales or rhonchi. CARDIOVASCULAR: Regular rate and rhythm, no murmurs, gallops or rubs. ABDOMEN: Soft, nontender and obese with positive bowel signs. EXTREMITIES: 1+ edema in bilateral lower extremities. No erythema, no clubbing, no cyanosis. NEUROLOGIC: Negative for focal deficits. IMPRESSION: Acute on chronic hypercapnic and hypoxic respiratory failure secondary to chronic obstructive pulmonary disease, status improved. PLAN OF CARE: Xanax that was added yesterday appears effective. The patient is more compliant on the BiPAP. Continue with BiPAP and DuoNeb and await for [facility] transfer for ongoing care and rehabilitation. KHLOE POOL DO [place], [place] PROGRESS NOTE NAME: CALI TAM UNIT #: [id number] ROOM: 503 DOCTOR: KHLOE POOL DO BIRTHDATE: [birth year] CRISTIAN GONZALEZ MD CM:WILVER [id number] KHLOE POOL DO 12/01/17 1139 interface
--- NOTE | ~2017-11-24 | PR ---
[place], [place] PROGRESS NOTE NAME: CALI TAM UNIT #: [id number] ROOM: 503 DOCTOR: EZEQUIEL WOODS MD BIRTHDATE: [birth year] DOS: 12/01/2017 SUBJECTIVE: The patient is doing fine this morning but earlier this morning, nursing staff found her pretty confused. OBJECTIVE: VITAL SIGNS: Blood pressure is 137/70, pulse of 70, respirations 20, temperature 98.1. LUNGS: Diminished breath sounds. No wheezes, rales or rhonchi heard. HEART: Regular. ABDOMEN: Obese, soft, nontender. EXTREMITIES: Without any edema. ASSESSMENT AND PLAN: 1. Periods of confusion, most likely hypercapnia causing respiratory failure. She is using the BiPAP, but instead of going to a senior living, I believe this would be best for her to go to a long-term care facility until she is stable, it would be best to keep her there. This would avoid further admissions to a hospital. 2. Myelofibrosis, stable. A CT of the head will be ordered today before discharge. EZEQUIEL WOODS MD CM:PNTRANS [id number] EZEQUIEL WOODS MD 12/02/17 1143 interface
--- NOTE | ~2017-11-24 | PR ---
[place], [place] PROGRESS NOTE NAME: CALI TAM [facility] #: [id number] UNIT #: [id number] ROOM: 503 DOCTOR: LISA BRANCH MD,CRISTIAN BIRTHDATE: [birth year] DOS: 11/28/2017 SUBJECTIVE: The patient was seen and examined in [id number] encounter today. History was taken. Physical examination performed. All the labs were reviewed. Assessment and management of the patient personally completed. The note done by the medical record coder was approved. The patient has been noted with gradual reduction and improvement in the respiratory symptom at this time as well with continued gradual improvement. She was anxious to be discharged home. OBJECTIVE: VITAL SIGNS: Normal temperature, respiratory rate 18, heart rate 65, blood pressure was normal. Pulse ox saturation were noted as 97% on 3 liters nasal cannula. LUNGS: Noted clear. ABDOMEN: Soft and obese. EXTREMITIES: Without any edema. LABORATORY DATA: BMP for this patient noted with BUN 46 and creatinine 1.72. CBC of patient that was done today showed WBC count of 4.2, mild anemia, otherwise normal. IMPRESSION: Progressive and gradual resolution of acute exacerbation of chronic obstructive pulmonary disease, acute hypercarbic and hypoxic respiratory failure with generalized weakness and fatigue. PLAN OF MANAGEMENT: The patient has been considered for home discharge with home health therapy for this patient. Physical therapy ____ tapering prednisone and antibiotics. Abstinence from tobacco use was advised with followup office visit in the next couple of weeks recommended. CRISTIAN GONZALEZ MD CM:WILVER [phone] CRISTIAN BRANCH MD 11/28/171950 interface
[2017-11-24 08:20] VITALS: BP 125/40
[~2017-11-24 08:20] MED LIST changes: +IRON325 M2 PO; +LEVOTHYROXINE0.1 MG PO
[2017-11-24] MEDS ORDERED: AMBIEN5 MG PO (08:39)
[2017-11-24] MEDS ORDERED: SEPTDS PO (08:41)
[2017-11-24] MEDS ORDERED: ANTACID200 MG PO (08:41)
[2017-11-24] MEDS ORDERED: BIOFREEZE118 ML TD (08:42)
[2017-11-24] MEDS ORDERED: CALMOSEPTINE OI71 GM T (08:43)
[2017-11-24] MEDS ORDERED: DUONEB 3 MG/3 ML3 M1 INH (08:44)
[2017-11-24 08:46] LABS: BILIRUBIN NEGATIVE (NEGATIVE); BLOOD NEGATIVE (NEGATIVE); CLARITY CLOUDY (CLEAR); COLOR YELLOW (YELLOW); GLUCOSE NEGATIVE (NEGATIVE); KETONE NEGATIVE (NEGATIVE); LEUKO ESTERASE 1+ (NEGATIVE); NITRITE NEGATIVE (NEGATIVE); SPECIFIC GRAVITY 1.015 (1.005-1.030); UROBILINOGEN 0.2 E.U./dl (0.2-1.0)
[2017-11-24] MEDS ORDERED: ISORDIL20 MG PO (08:47)
[2017-11-24] MEDS ORDERED: NYSTATIN CREAM15 GM T (08:49)
[2017-11-24] MEDS ORDERED: PRILOSEC20 M1 PO (08:50)
[2017-11-24] MEDS ORDERED: TYLENOL325 M1 PO (08:53)
[2017-11-24 09:05] LABS: BACTERIA 1+; EPITHELIAL CELLS 21-30
[2017-11-24 09:21] LABS: BASO % 0.3 % (0.0-1.0); EOS # 0.1 10*3/uL (0.0-0.4); EOS % 2.6 % (1.0-4.0); HEMATOCRIT 39.1 % (37.0-47.0); LYMPH # 0.7 10*3/uL (1.3-4.4); LYMPH % 19.1 % (27.0-41.0); MEAN CELL VOLUME 100.5 fl (81.0-99.0); MEAN CORPUSCULAR HGB 30.8 pg (27.0-31.0); MEAN CORPUSCULAR HGB CONC 30.7 g/dl (33.0-37.0); MEAN PLATELET VOLUME 8.6 fl (9.6-12.3); MONO # 0.2 10*3/uL (0.1-1.0); MONO % 5.5 % (3.0-9.0); NEUT # 2.8 10*3/uL (2.3-7.9); PLATELET COUNT AUTOMATED 121 10*3/uL (130-400); RED BLOOD COUNT 3.89 10*6/uL (4.10-5.10); RED CELL DISTRI WIDTH 13.8 % (0-14.5); WHITE BLOOD COUNT 3.8 10*3/uL (4.8-10.8)
[2017-11-24 09:34] LABS: ALBUMIN 3.4 gm/dl (3.1-4.5); CREATININE 1.14 mg/dL (0.55-1.02); POTASSIUM 5.4 mmol/L (3.5-5.1); TOTAL PROTEIN 6.6 gm/dL (6.4-8.2)
[2017-11-24 09:36] LABS: TROPONIN I 0.031 ng/ml (<0.045)
[2017-11-24 11:19] VITALS: BP 152/40
[2017-11-24 12:00] VITALS: BP 134/99
[2017-11-24] MEDS ORDERED: XANAX XR0.5 MG PO (12:33)
[2017-11-24 16:00] VITALS: BP 141/46
[2017-11-24 20:00] VITALS: BP 134/59
[2017-11-25] VITALS: BP 120/68; BP 139/67
[2017-11-25 06:50] LABS: EOS # 0.1 10*3/uL (0.0-0.4); EOS % 3.7 % (1.0-4.0); HEMATOCRIT 39.2 % (37.0-47.0); HEMOGLOBIN 11.6 g/dl (12.0-16.0); LYMPH # 0.7 10*3/uL (1.3-4.4); LYMPH % 24.7 % (27.0-41.0); MEAN CELL VOLUME 100.8 fl (81.0-99.0); MEAN CORPUSCULAR HGB 29.8 pg (27.0-31.0); MEAN CORPUSCULAR HGB CONC 29.6 g/dl (33.0-37.0); MEAN PLATELET VOLUME 8.9 fl (9.6-12.3); MONO # 0.2 10*3/uL (0.1-1.0); MONO % 7.4 % (3.0-9.0); NEUT # 1.9 10*3/uL (2.3-7.9); NEUT % 63.9 % (47.0-73.0); PLATELET COUNT AUTOMATED 110 10*3/uL (130-400); RED BLOOD COUNT 3.89 10*6/uL (4.10-5.10); RED CELL DISTRI WIDTH 13.5 % (0-14.5)
[2017-11-25 07:30] LABS: POTASSIUM 4.6 mmol/L (3.5-5.1)
[2017-11-25 07:37] LABS: CREATININE 1.17 mg/dL (0.55-1.02)
[2017-11-25 08:00] VITALS: BP 150/50
[2017-11-25 12:00] VITALS: BP 111/48
[2017-11-25 15:00] LABS: ABG BASE EXCESS 11.1 mmol/L (-2.0-2.0); ABG HCO3 39.3 mmol/l (22-26); ABG O2 SATURATION 96.4 % (95-97); ARTERIAL BLOOD GAS PH 7.33 (7.35-7.45); ARTERIAL BLOOD GAS PO2 80.3 mmHg (80-90)
[2017-11-25 15:03] LABS: ARTERIAL BLOOD GAS PCO2 76.8 mmHg (35-45)
[2017-11-25 15:53] VITALS: BP 103/48
[2017-11-25 20:00] VITALS: BP 110/60
[2017-11-26] VITALS: BP 120/58
[2017-11-26] MEDS ORDERED: ACETAZOLAMIDE250 MG PO (07:36)
[2017-11-26 07:48] LABS: ABG BASE EXCESS 7.8 mmol/L (-2.0-2.0); ABG HCO3 38.4 mmol/l (22-26); ABG O2 SATURATION 96.2 % (95-97); ARTERIAL BLOOD GAS PH 7.227 (7.35-7.45); ARTERIAL BLOOD GAS PO2 90.2 mmHg (80-90)
[2017-11-26 07:53] LABS: ARTERIAL BLOOD GAS PCO2 95.9 mmHg (35-45)
[2017-11-26 08:00] VITALS: BP 92/48
[2017-11-26 11:29] LABS: ABG BASE EXCESS 9.7 mmol/L (-2.0-2.0); ABG HCO3 38.1 mmol/l (22-26); ABG O2 SATURATION 90.6 % (95-97); ARTERIAL BLOOD GAS PH 7.325 (7.35-7.45); ARTERIAL BLOOD GAS PO2 59.2 mmHg (80-90)
[2017-11-26 11:35] LABS: ARTERIAL BLOOD GAS PCO2 74.9 mmHg (35-45)
[2017-11-26 12:00] VITALS: BP 112/53; BP 97/44
[2017-11-26 15:58] VITALS: BP 115/54
[2017-11-26 20:00] VITALS: BP 98/48
[2017-11-27] VITALS: BP 113/59
[2017-11-27 04:00] VITALS: BP 138/47
[2017-11-27 07:51] VITALS: BP 122/45
[2017-11-27 08:57] LABS: ABG BASE EXCESS 8.2 mmol/L (-2.0-2.0); ABG HCO3 36.4 mmol/l (22-26); ARTERIAL BLOOD GAS PH 7.322 (7.35-7.45)
[2017-11-27 09:02] LABS: ARTERIAL BLOOD GAS PCO2 72.1 mmHg (35-45)
[2017-11-27 12:00] VITALS: BP 99/51
[2017-11-27 16:00] VITALS: BP 130/47
[2017-11-27 20:00] VITALS: BP 116/85
[2017-11-28] VITALS: BP 117/72; BP 146/52
[2017-11-28 07:03] LABS: HEMATOCRIT 38.7 % (37.0-47.0); HEMOGLOBIN 11.8 g/dl (12.0-16.0); LYMPH # 0.8 10*3/uL (1.3-4.4); LYMPH % 19.8 % (27.0-41.0); MEAN CORPUSCULAR HGB 29.6 pg (27.0-31.0); MEAN CORPUSCULAR HGB CONC 30.5 g/dl (33.0-37.0); MEAN PLATELET VOLUME 9.4 fl (9.6-12.3); MONO # 0.1 10*3/uL (0.1-1.0); MONO % 3.3 % (3.0-9.0); NEUT # 3.2 10*3/uL (2.3-7.9); NEUT % 76.2 % (47.0-73.0); PLATELET COUNT AUTOMATED 132 10*3/uL (130-400); RED BLOOD COUNT 3.99 10*6/uL (4.10-5.10); RED CELL DISTRI WIDTH 13.2 % (0-14.5); WHITE BLOOD COUNT 4.2 10*3/uL (4.8-10.8)
[2017-11-28 07:30] LABS: CREATININE 1.72 mg/dL (0.55-1.02)
[2017-11-28 08:00] VITALS: BP 104/52
[2017-11-28 12:00] VITALS: BP 133/75
[2017-11-28 16:00] VITALS: BP 115/48
[2017-11-28 20:00] VITALS: BP 120/52
[2017-11-29] VITALS: BP 132/48
[2017-11-29 08:00] VITALS: BP 134/62
[2017-11-29 09:24] LABS: BASO % 0.2 % (0.0-1.0); EOS # 0.1 10*3/uL (0.0-0.4); EOS % 1.3 % (1.0-4.0); HEMOGLOBIN 12.3 g/dl (12.0-16.0); LYMPH # 1.3 10*3/uL (1.3-4.4); LYMPH % 29.2 % (27.0-41.0); MEAN CELL VOLUME 97.6 fl (81.0-99.0); MEAN CORPUSCULAR HGB CONC 30.8 g/dl (33.0-37.0); MEAN PLATELET VOLUME 8.8 fl (9.6-12.3); MONO # 0.2 10*3/uL (0.1-1.0); MONO % 4.2 % (3.0-9.0); NEUT # 2.9 10*3/uL (2.3-7.9); NEUT % 64.7 % (47.0-73.0); PLATELET COUNT AUTOMATED 134 10*3/uL (130-400); RED CELL DISTRI WIDTH 13.8 % (0-14.5); WHITE BLOOD COUNT 4.5 10*3/uL (4.8-10.8)
[2017-11-29 09:33] LABS: ABG BASE EXCESS 1.4 mmol/L (-2.0-2.0); ABG HCO3 29.4 mmol/l (22-26); ABG O2 SATURATION 94.8 % (95-97); ARTERIAL BLOOD GAS PCO2 67.2 mmHg (35-45); ARTERIAL BLOOD GAS PH 7.264 (7.35-7.45); ARTERIAL BLOOD GAS PO2 83.9 mmHg (80-90)
[2017-11-29 09:53] LABS: CREATININE 2.01 mg/dL (0.55-1.02); POTASSIUM 4.8 mmol/L (3.5-5.1)
[2017-11-29 12:00] VITALS: BP 92/58
[2017-11-29 16:00] VITALS: BP 102/44
[2017-11-29 20:00] VITALS: BP 143/117
[2017-11-30] VITALS: BP 124/58
[2017-11-30 07:12] LABS: BASO % 0.3 % (0.0-1.0); EOS # 0.1 10*3/uL (0.0-0.4); EOS % 1.7 % (1.0-4.0); HEMATOCRIT 36.9 % (37.0-47.0); HEMOGLOBIN 11.1 g/dl (12.0-16.0); MEAN CORPUSCULAR HGB 30.1 pg (27.0-31.0); MEAN CORPUSCULAR HGB CONC 30.1 g/dl (33.0-37.0); MEAN PLATELET VOLUME 8.5 fl (9.6-12.3); MONO # 0.2 10*3/uL (0.1-1.0); MONO % 4.9 % (3.0-9.0); NEUT # 2.3 10*3/uL (2.3-7.9); NEUT % 64.5 % (47.0-73.0); PLATELET COUNT AUTOMATED 106 10*3/uL (130-400); RED BLOOD COUNT 3.69 10*6/uL (4.10-5.10); RED CELL DISTRI WIDTH 13.7 % (0-14.5); WHITE BLOOD COUNT 3.5 10*3/uL (4.8-10.8)
[2017-11-30 07:38] LABS: CREATININE 1.58 mg/dL (0.55-1.02); POTASSIUM 4.8 mmol/L (3.5-5.1)
[2017-11-30 08:00] VITALS: BP 128/62
[2017-11-30 12:00] VITALS: BP 120/88
[2017-11-30 16:00] VITALS: BP 118/42
[2017-11-30 20:00] VITALS: BP 119/68
[2017-12-01] VITALS: BP 123/46
[2017-12-01 08:00] VITALS: BP 137/70
[2017-12-01 08:29] LABS: ABG BASE EXCESS -1.7 mmol/L (-2.0-2.0); ABG HCO3 24.5 mmol/l (22-26); ABG O2 SATURATION 90.8 % (95-97); ARTERIAL BLOOD GAS PCO2 49.9 mmHg (35-45); ARTERIAL BLOOD GAS PH 7.31 (7.35-7.45); ARTERIAL BLOOD GAS PO2 62.3 mmHg (80-90)
[2017-12-01 08:31] LABS: BASO % 0.2 % (0.0-1.0); EOS # 0.1 10*3/uL (0.0-0.4); EOS % 2.8 % (1.0-4.0); HEMATOCRIT 38.3 % (37.0-47.0); HEMOGLOBIN 11.9 g/dl (12.0-16.0); LYMPH % 22.3 % (27.0-41.0); MEAN CORPUSCULAR HGB 30.1 pg (27.0-31.0); MEAN CORPUSCULAR HGB CONC 31.1 g/dl (33.0-37.0); MEAN PLATELET VOLUME 8.9 fl (9.6-12.3); MONO # 0.2 10*3/uL (0.1-1.0); MONO % 4.4 % (3.0-9.0); NEUT % 69.8 % (47.0-73.0); PLATELET COUNT AUTOMATED 118 10*3/uL (130-400); RED BLOOD COUNT 3.95 10*6/uL (4.10-5.10); RED CELL DISTRI WIDTH 13.3 % (0-14.5); WHITE BLOOD COUNT 4.4 10*3/uL (4.8-10.8)
== END 2017-12-01 12:53 | DRG 291 ==
LOC: ED 08:20 → EDHOLD 10:56 → ICCU 10:56 → 5E 10:56 → ICCU 11-26 08:05 → 5E 11-27 15:21
PROVIDERS: Emergency Medicine; Internal Medicine; Internal Medicine Critical Care Medicine
PROC: 5A09357 Assistance with Respiratory Ventilation, Less than 24 Consecutive Hours, Continuous Positive Airway Pressure (ICD-10-PCS; principal; 2017-11-26)
PROC: 5A09357 Assistance with Respiratory Ventilation, Less than 24 Consecutive Hours, Continuous Positive Airway Pressure (ICD-10-PCS; 2017-11-27)
PROC: 5A09357 Assistance with Respiratory Ventilation, Less than 24 Consecutive Hours, Continuous Positive Airway Pressure (ICD-10-PCS; 2017-11-29)
DX: I11.0 Hypertensive heart disease with heart failure (principal); J96.21 Acute and chronic respiratory failure with hypoxia; N17.9 Acute kidney failure, unspecified; D61.818 Other pancytopenia; E87.3 Alkalosis; E86.0 Dehydration; D75.81 Myelofibrosis; J96.22 Acute and chronic respiratory failure with hypercapnia; J44.1 Chronic obstructive pulmonary disease with (acute) exacerbation; I50.31 Acute diastolic (congestive) heart failure; J84.10 Pulmonary fibrosis, unspecified; D46.9 Myelodysplastic syndrome, unspecified; R62.7 Adult failure to thrive; E78.2 Mixed hyperlipidemia; G89.29 Other chronic pain; M54.9 Dorsalgia, unspecified; E89.0 Postprocedural hypothyroidism; R25.1 Tremor, unspecified; B34.9 Viral infection, unspecified; F41.9 Anxiety disorder, unspecified; I35.0 Nonrheumatic aortic (valve) stenosis; I44.7 Left bundle-branch block, unspecified; E66.01 Morbid (severe) obesity due to excess calories; Z79.02 Long term (current) use of antithrombotics/antiplatelets; Z79.899 Other long term (current) drug therapy; Z87.440 Personal history of urinary (tract) infections; Z88.0 Allergy status to penicillin; Z88.8 Allergy status to other drugs, medicaments and biological substances; Z91.040 Latex allergy status; Z87.01 Personal history of pneumonia (recurrent); Z90.49 Acquired absence of other specified parts of digestive tract; Z90.711 Acquired absence of uterus with remaining cervical stump; Z98.61 Coronary angioplasty status; Z82.49 Family history of ischemic heart disease and other diseases of the circulatory system; Z80.8 Family history of malignant neoplasm of other organs or systems; Z99.81 Dependence on supplemental oxygen; Z68.32 Body mass index [BMI] 32.0-32.9, adult

== ENCOUNTER 2017-12-25 05:45 | Inpatient (IN) | payer MEDICARE, OTHER ==
[2017-12-25] VITALS (7 sets, daily range): BP systolic 124–157; BP diastolic 40–60
[~2017-12-25] VITALS: Ht 152.4 cm; Wt 96.7 kg
--- NOTE | ~2017-12-25 | PR ---
[place], [place] PROGRESS NOTE NAME: CALI TAM [facility] #: [id number] UNIT #: [id number] ROOM: 511 DOCTOR: EZEQUIEL WOODS MD BIRTHDATE: [birth year] DOS: 12/28/2017 SUBJECTIVE: The patient states that she wants to go back to the group home. OBJECTIVE: VITAL SIGNS: Graphic trend shows blood pressure 130/59, pulse of 65, respirations 19, temperature 98.0. LUNGS: Diminished breath sounds, scattered wheezes. HEART: Regular. ABDOMEN: Obese, soft. EXTREMITIES: Without any edema. LABORATORY DATA: Urine culture is showing E. coli and Proteus mirabilis, which is sensitive to cephalosporins. Blood culture shows no bacterial growth. MRSA of the nares was negative. Chest x-ray shows no evidence of CHF ____ fibrosis. ASSESSMENT AND PLAN: 1. Acute diastolic congestive heart failure, improving. 2. Chronic obstructive pulmonary disease with acute exacerbation. 3. Hypoxic respiratory failure, which has resolved. The patient is insisting that she be discharged, so discharge arrangements are being made. EZEQUIEL WOODS MD CM:PNTRANS [phone] EZEQUIEL WOODS MD 12/28/17 0852 interface
--- NOTE | ~2017-12-25 | PR ---
[place], [place] PROGRESS NOTE NAME: CALI TAM [facility] #: [id number] UNIT #: [id number] ROOM: [facility] DOCTOR: EZEQUIEL WOODS MD BIRTHDATE: [birth year] DOS: 12/26/2017 SUBJECTIVE: The patient looks much better than yesterday. She is sitting up in a chair, eating a breakfast. She does have some mild to moderate respiratory distress. OBJECTIVE: VITAL SIGNS: Blood pressure is 128/58, pulse of 62, respirations 22, temperature 97.9. LUNGS: Diminished breath sounds, scattered rhonchi and rales heard. HEART: Regular. ABDOMEN: Obese. EXTREMITIES: Without any edema. LABORATORY DATA: Shows a WBC count of 2.2, hemoglobin 9.5, platelets 141. BMP: Glucose 89, BUN 21, creatinine 0.94, sodium 139, potassium 4.1, chloride 95, bicarbonate 60. Urinalysis positive for nitrite. Urine culture, 50,000 moderate negative. ASSESSMENT AND PLAN: 1. Acute congestive heart failure, diastolic with acute hypoxic respiratory failure. The patient was admitted. Diuresis has been started. 2. Chronic obstructive pulmonary disease with acute exacerbation. A low dose IV steroid will be given. 3. Urinary tract infection, most likely responsible for the fever that she was having, 50,000 colonies on moderate gram-negative bacteria on Levaquin, which I will continue for right now. Change the antibiotic once we have the final sensitivities. 4. History of hypercapnic respiratory failure, order BiPAP at night. EZEQUIEL WOODS MD CM:PNTRANS [phone] EZEQUIEL WOODS MD 12/26/17 1158 interface
--- NOTE | ~2017-12-25 | DS ---
[place], [place] DISCHARGE SUMMARY NAME: CALI TAM UNIT #: [id number] ROOM: [facility] DOCTOR: EZEQUIEL WOODS MD BIRTHDATE: [birth year] DOS: 12/28/2017 DIAGNOSES: 1. Acute diastolic congestive heart failure. 2. Acute exacerbation of chronic obstructive pulmonary disease. 3. Acute hypoxic respiratory failure. 4. Urinary tract infection with Escherichia coli and Proteus mirabilis, 50,000 colonies each. 5. Benign hypertension. 6. Myelofibrosis with pancytopenia. 7. Benign hypertension. 8. Mixed hyperlipidemia. 9. Aortic stenosis. DISCHARGE MEDICATIONS: This patient's medications on discharge will be Medrol Dosepak, Lasix 60 mg daily, Singulair 10 mg daily, simvastatin 10 mg daily, Colace 100 mg daily, Plavix 75 daily, levothyroxine 100 mcg daily, gabapentin 100 mg q. 8 hours, thiamin 100 mg daily, atenolol 25 daily, iron 325 daily, isosorbide 30 mg daily. breathing treatments with DuoNeb q. 6 hours p.r.n., omeprazole 20 daily, Tylenol 650 q, 6 hours, Synthroid 150 mcg Monday and Monday, Ceftin 250 mg twice a day. HOSPITAL COURSE: This patient is an 82-year-old who was brought into the Emergency Room in acute hypoxic respiratory failure and she was found to be in acute diastolic CHF, was admitted to the ICU, was monitored. Her code status is comfort care currently, so she was transferred out of the ICU, placed on a regular floor.. With IV diuretics CHF has resolved. She also has underlying COPD with exacerbation and bronchospasm, was placed on IV steroids and breathing treatments and continued to have bronchospasm. She is not really ready to go back to the nursing, but she is insisting that she be discharged, so discharge arrangements are being made for the patient to go back. The patient is awake and alert and oriented and is aware of her condition and is able to make decisions on her own. The patient was seen by Dr. Foley this admission and was advised continuation of diuretics. Please allow the patient to use Trilogy ventilator at night. [place], [place] DISCHARGE SUMMARY NAME: CALI TAM UNIT #: [id number] ROOM: 511 DOCTOR: EZEQUIEL WOODS MD BIRTHDATE: [birth year] EZEQUIEL WOODS MD CM:ANDREW [phone] EZEQUIEL WOODS MD 12/28/17 0859 interface
--- NOTE | ~2017-12-25 | PR ---
[place], [place] PROGRESS NOTE NAME: CALI TAM UNIT #: [id number] ROOM: [facility] DOCTOR: EZEQUIEL WOODS MD BIRTHDATE: [birth year] DOS: SUBJECTIVE: The patient is sitting up in her chair, states that she has been urinating a lot. OBJECTIVE: GENERAL: On exam, she is awake and alert and oriented, in mild respiratory distress, pressure is 110/70, pulse of 60, respirations 16, temperature 97.8. LUNGS: Diminished breath sounds. A few scattered rhonchi still present. HEART: Regular. ABDOMEN: Obese, soft. EXTREMITIES: Decreased edema. A small scratch that was seen on the right chun is healed. LABORATORY DATA: MRSA of the nares was negative. Urine culture 50,000 colonies of E. coli which is sensitive to the Levaquin that she is already on. ASSESSMENT AND PLAN: 1. Acute diastolic with acute hypoxic respiratory failure, improving. Chest x-ray does not show congestive heart failure, but clinically the patient still is in congestive heart failure, but will cut back on the dosage of the medications, especially the diuretics. 2. Mild exacerbation of chronic obstructive pulmonary disease. The patient is on intravenous steroids. 3. Chronic hypercapnic respiratory failure, on Trilogy ventilator at the shelter, continue using bilevel positive airway pressure here at night. The patient to avoid all kind of and she likes pain medications and Benadryl. Please do not order Benadryl on this patient because of high risk for hypercapnic respiratory failure. EZEQUIEL WOODS MD CM:PNTRANS [phone] EZEQUIEL WOODS MD 12/27/17 1336 interface
--- NOTE | ~2017-12-25 | WRIGHTHP ---
[place], [place] PATIENT HISTORY AND PHYSICAL EXAM NAME: CALI TAM [facility] #: [id number] UNIT #: [id number] ROOM: [facility] DOCTOR: EZEQUIEL WOODS MD BIRTHDATE: [birth year] DOS: 12/25/2017 HISTORY OF PRESENT ILLNESS: The patient was seen in the Emergency Room on the day of admission morning. The patient just arrived from [facility] on and when she was discharged from [facility], she was stable. On Monday, I had seen her, she did not have any complaints. Medications were reviewed. On Monday, the nursing staff called saying that she was complaining of some mild shortness of breath and not feeling good and had a low grade fever. Antibiotics were started and the next day, during the night, the patient became increasingly short of breath, was advised sending the patient to the Emergency Room. When she arrived, she was found to have increasing shortness of breath and hypoxic respiratory failure. She is being admitted with diagnosis of congestive heart failure. She does not have any chest pains or palpitations, not have any fever or chills, does have swelling in both her legs. They are pretty red and angry looking and there are small blisters and the fluid is leaking. PAST MEDICAL HISTORY: Significant for: 1. Chronic hypercapnic respiratory failure, uses a BiPAP. 2. Myelofibrosis. 3. Benign hypertension. 4. History of acute kidney injury. 5. Diastolic dysfunction. 6. Chronic obstructive pulmonary disease with chronic respiratory failure, oxygen dependent. 7. Mixed hyperlipidemia. 8. Aortic stenosis. 9. Hypothyroidism. MEDICATIONS ON ADMISSION: Current medications are breathing treatments, Tylenol, atenolol, Plavix, Colace, iron, gabapentin, Isordil, levothyroxine, loratadine, Singulair, omeprazole, Zocor, thiamine. SOCIAL HISTORY: Nonsmoker, does not use any alcohol. PHYSICAL EXAMINATION: GENERAL: The patient is awake and alert and oriented. VITAL SIGNS: Graphic trend shows a pressure 128/58, pulse of 62, respirations 22, temperature 97.9, in moderate respiratory distress. She does wake up solution manager and answers questions. LUNGS: Diminished breath sounds, scattered wheezes and rales heard bilaterally. HEART: Regular. ABDOMEN: Obese. EXTREMITIES: About 2-3+ pitting edema. The skin is pretty shiny and hot and there are small vesicles with draining fluid. On the right side, there is also redness of the skin peeling off. ASSESSMENT AND PLAN: 1. Acute diastolic congestive heart failure, with acute hypoxic respiratory failure. The patient will be admitted to the ICU and placed on BiPAP and IV diuretics. [place], [place] PATIENT HISTORY AND PHYSICAL EXAM NAME: CALI TAM UNIT #: [id number] ROOM: [facility] DOCTOR: EZEQUIEL WOODS MD BIRTHDATE: [birth year] 2. Benign hypertension, controlled. Echocardiogram, cardiology consultation has been obtained. 3. Low grade fever noted possibly from an underlying infectious process. Add antibiotics. Cultures will be sent. 4. Adult failure to thrive, to go back to the [facility] when stable. EZEQUIEL WOODS MD CM:HISPHYS:PATIENT HISTORY AND PHYSICAL EXAMINATION 2 9 EZEQUIEL WOODS MD 12/26/1729 interface
--- NOTE | ~2017-12-25 | CON ---
[place], [place] REPORT OF CONSULTATION [id number] UNIT #: [id number] ROOM: [facility] DOCTOR: HARSHIL JOLLY MD BIRTHDATE: [birth year] DOS: 12/25/2017 HISTORY OF PRESENT ILLNESS: This is an 82-year-old -[place] woman with a history of diastolic heart failure, significant COPD, has some mild fibrotic change in the lung, essential hypertension, chronic respiratory failure, dyslipidemia, some degree of aortic stenosis, hypothyroidism, morbid obesity. She was in [facility] where she was discharged to a [facility] and apparently she was not discharged on any diuretics. She became increasingly short of breath and her ____ began to swell up and finally ended up in the Emergency Department here and she was admitted. She was in respiratory distress at the time and required BiPAP support. She was given IV furosemide and diuresed exceedingly well. Her breathing is somewhat better now, but she is still fairly short of breath. She has not had any chest pain or palpitations, but does have orthopnea. RETIREMENT MEDICATIONS: Included Symbicort, DuoNeb, atenolol 25 mg daily, calcium carbonate, clopidogrel 75 daily, doxycycline 100 mg q.12h., ferrous sulfate, gabapentin, Imdur 30 q.a.m., levothyroxine 100 mcg daily, Claritin, Singulair, Prilosec, simvastatin, thiamine. PHYSICAL EXAMINATION: GENERAL: Reveals a patient who is alert, oriented. She is a little nervous and has oxygen by nasal cannula and is quite tachypneic, somewhat labored breathing. VITAL SIGNS: Temperature is normal. Pulse is regular at 96 beats per minute, blood pressure 124/40. NECK: JVP is mildly elevated with a positive AJR. She has at least 2+ edema below the knees. LUNGS: She is tachypneic. Auscultation reveals a moderately reduced breath sound with some adventitious sounds. ABDOMEN: Rather large. DIAGNOSTIC DATA: Chest x-ray demonstrates some chronic changes. There may be mild pulmonary edema as well. It is difficult to interpret because the quality of these images. LABORATORY DATA: ECG showed sinus tachycardia at 108 beats per minute and complete left bundle-branch block. Her BUN 13, creatinine is 0.86, potassium 4.6, sodium 140, albumin 3.2 g/dL, and troponin 0.017. Hemoglobin 9.9 g/dL. IMPRESSION: This patient has [id number] diastolic heart failure and your treatment is very appropriate namely slowing down the heart rate, IV furosemide, and oxygen support. I think she probably will require IV furosemide for a couple of days and then should be changed to an oral loop diuretic. I thank you for this consult. [place], [place] REPORT OF CONSULTATION NAME: CALI TAM UNIT #: [id number] ROOM: [facility] DOCTOR: RIK MINER,HARSHIL BIRTHDATE: [birth year] HARSHIL JOLLY MD CM:CONSTR:REPORT OF CONSULTATION 1653 12/25/17 2150 interface
[~2017-12-25 05:45] MED LIST changes: +ACETAZOLAMIDE250 MG PO; +AMBIEN5 MG PO; +ANTACID200 MG PO; +B-1100 M1 PO; +BIOFREEZE118 ML TD; +CALMOSEPTINE OI71 GM T; +DUONEB 3 MG/3 ML3 M1 INH; +NYSTATIN CREAM15 GM T; +PRILOSEC20 M1 PO; +SEPTDS PO; +SINGULAIR10 M1 PO; -SINGULAIR10 MG PO; +TYLENOL325 M1 PO; +XANAX XR0.5 MG PO
[2017-12-25 06:09] LABS: BASO % 0.4 % (0.0-1.0); EOS # 0.1 10*3/uL (0.0-0.4); EOS % 2.5 % (1.0-4.0); HEMATOCRIT 32.6 % (37.0-47.0); HEMOGLOBIN 9.9 g/dl (12.0-16.0); LYMPH # 0.4 10*3/uL (1.3-4.4); LYMPH % 14.7 % (27.0-41.0); MEAN CELL VOLUME 97.9 fl (81.0-99.0); MEAN CORPUSCULAR HGB 29.7 pg (27.0-31.0); MEAN CORPUSCULAR HGB CONC 30.4 g/dl (33.0-37.0); MEAN PLATELET VOLUME 8.3 fl (9.6-12.3); MONO # 0.2 10*3/uL (0.1-1.0); MONO % 6.5 % (3.0-9.0); NEUT # 2.1 10*3/uL (2.3-7.9); NEUT % 74.8 % (47.0-73.0); PLATELET COUNT AUTOMATED 141 10*3/uL (130-400); RED BLOOD COUNT 3.33 10*6/uL (4.10-5.10); RED CELL DISTRI WIDTH 14.3 % (0-14.5); WHITE BLOOD COUNT 2.8 10*3/uL (4.8-10.8)
[2017-12-25 06:22] LABS: ACT PARTIAL THROMBO TIME 24.3 SECONDS (20.8-31.5); INTERNATIONAL NORM RATIO 1.1 (2.0-3.5)
[2017-12-25 06:27] LABS: ALBUMIN 3.2 gm/dl (3.1-4.5); ALKALINE PHOSPHATASE 80 U/L (45-117); BUN 13 mg/dl (7-24); CHLORIDE 102 mmol/L (98-107); CREATININE 0.86 mg/dL (0.55-1.02); POTASSIUM 4.6 mmol/L (3.5-5.1); SGOT/AST 13 IU/L (3-35); SGPT/ALT 19 U/L (12-78); SODIUM 140 mmol/L (136-145); TOTAL PROTEIN 6.3 gm/dL (6.4-8.2); TROPONIN I 0.017 ng/ml (<0.045)
[2017-12-25 08:07] LABS: ABG BASE EXCESS 3.9 mmol/L (-2.0-2.0); ABG HCO3 31.4 mmol/l (22-26); ARTERIAL BLOOD GAS PCO2 68.3 mmHg (35-45); ARTERIAL BLOOD GAS PH 7.287 (7.35-7.45); ARTERIAL BLOOD GAS PO2 83.2 mmHg (80-90)
[2017-12-25 10:41] LABS: BILIRUBIN NEGATIVE (NEGATIVE); BLOOD NEGATIVE (NEGATIVE); CLARITY CLEAR (CLEAR); COLOR YELLOW (YELLOW); GLUCOSE NEGATIVE (NEGATIVE); KETONE NEGATIVE (NEGATIVE); LEUKO ESTERASE TRACE (NEGATIVE); NITRITE POSITIVE (NEGATIVE); UROBILINOGEN 0.2 E.U./dl (0.2-1.0)
[2017-12-25 11:04] LABS: BACTERIA 3+; WBC 16-20 wbc/hpf (0-5)
[2017-12-25] MEDS ORDERED: MEDROL DOSEPAK4 MG PO (11:23)
[2017-12-25] MEDS ORDERED: DOXYCYCLINE HY100 M3 PO (11:25)
[2017-12-25] MEDS ORDERED: SYMB80 INH (11:26)
[2017-12-25] MEDS ORDERED: CLARITIN10 MG PO (11:40)
[2017-12-25] MEDS ORDERED: CALCIUM CA500 MG/5 M PO (11:43)
[2017-12-25] MEDS ORDERED: BENADRYL ALLERG25 M5 PO (11:52)
[2017-12-25] MEDS ORDERED: SORE THROAT 17177 ML MM (11:54)
[2017-12-25] MEDS ORDERED: MAALOX MAXIMUM355 ML PO (11:56)
[2017-12-26] VITALS: BP 128/52
[2017-12-26 04:00] VITALS: BP 128/58
[2017-12-26 04:45] LABS: EOS % 0.9 % (1.0-4.0); HEMOGLOBIN 9.5 g/dl (12.0-16.0); LYMPH # 0.5 10*3/uL (1.3-4.4); LYMPH % 22.9 % (27.0-41.0); MEAN CELL VOLUME 98.2 fl (81.0-99.0); MEAN CORPUSCULAR HGB 29.1 pg (27.0-31.0); MEAN CORPUSCULAR HGB CONC 29.7 g/dl (33.0-37.0); MEAN PLATELET VOLUME 8.4 fl (9.6-12.3); MONO # 0.2 10*3/uL (0.1-1.0); MONO % 10.3 % (3.0-9.0); NEUT # 1.4 10*3/uL (2.3-7.9); NEUT % 64.6 % (47.0-73.0); PLATELET COUNT AUTOMATED 141 10*3/uL (130-400); RED BLOOD COUNT 3.26 10*6/uL (4.10-5.10); RED CELL DISTRI WIDTH 14.3 % (0-14.5); WHITE BLOOD COUNT 2.2 10*3/uL (4.8-10.8)
[2017-12-26 05:12] LABS: BUN 21 mg/dl (7-24); CHLORIDE 95 mmol/L (98-107); CREATININE 0.94 mg/dL (0.55-1.02); POTASSIUM 4.1 mmol/L (3.5-5.1); SODIUM 139 mmol/L (136-145)
[2017-12-26 08:00] VITALS: BP 100/42
[2017-12-26 12:00] VITALS: BP 100/57
[2017-12-26 16:00] VITALS: BP 98/48
[2017-12-26 20:00] VITALS: BP 96/48
[2017-12-27] VITALS: BP 153/49
[2017-12-27 04:00] VITALS: BP 111/27
[2017-12-27 08:00] VITALS: BP 120/71
[2017-12-27 12:00] VITALS: BP 115/45
[2017-12-27 16:00] VITALS: BP 121/62
[2017-12-27 20:00] VITALS: BP 120/84
[2017-12-28] VITALS: BP 130/59
[2017-12-28 06:45] VITALS: BP 122/80
[2017-12-28 08:44] VITALS: BP 112/84
[2017-12-28 12:00] VITALS: BP 129/52
== END 2017-12-28 16:10 | disposition other institution (70) | DRG 871 ==
LOC: ED 05:45 → 5E 08:19 → EDHOLD 08:19 → ICCU 08:19 → 5E 12-27 13:50
PROVIDERS: Emergency Medicine; Internal Medicine; Student in an Organized Health Care Education/Training Program
PROC: 5A09357 Assistance with Respiratory Ventilation, Less than 24 Consecutive Hours, Continuous Positive Airway Pressure (ICD-10-PCS; principal; 2017-12-25)
DX: A41.9 Sepsis, unspecified organism (principal); J96.21 Acute and chronic respiratory failure with hypoxia; D61.818 Other pancytopenia; I50.33 Acute on chronic diastolic (congestive) heart failure; N39.0 Urinary tract infection, site not specified; D75.81 Myelofibrosis; E66.01 Morbid (severe) obesity due to excess calories; J44.1 Chronic obstructive pulmonary disease with (acute) exacerbation; B96.20 Unspecified Escherichia coli [E. coli] as the cause of diseases classified elsewhere; J96.22 Acute and chronic respiratory failure with hypercapnia; Z68.41 Body mass index [BMI] 40.0-44.9, adult; L97.919 Non-pressure chronic ulcer of unspecified part of right lower leg with unspecified severity; Z66 Do not resuscitate; Z51.5 Encounter for palliative care; E78.2 Mixed hyperlipidemia; I11.0 Hypertensive heart disease with heart failure; R62.7 Adult failure to thrive; I35.0 Nonrheumatic aortic (valve) stenosis; E03.9 Hypothyroidism, unspecified; B96.4 Proteus (mirabilis) (morganii) as the cause of diseases classified elsewhere; S80.822A Blister (nonthermal), left lower leg, initial encounter; S80.821A Blister (nonthermal), right lower leg, initial encounter; X58.XXXA Exposure to other specified factors, initial encounter; Y93.89 Activity, other specified; Y92.89 Other specified places as the place of occurrence of the external cause; Y99.8 Other external cause status; Z87.01 Personal history of pneumonia (recurrent); Z88.0 Allergy status to penicillin

== ENCOUNTER 2017-12-31 09:11 | Emergency (ER) | payer MEDICARE, OTHER ==
[~2017-12-31] VITALS: Ht 152.4 cm; Wt 99.8 kg
[~2017-12-31 09:11] MED LIST changes: +BENADRYL ALLERG25 M5 PO; +CALCIUM CA500 MG/5 M PO; +CLARITIN10 MG PO; +DOXYCYCLINE HY100 M3 PO; +MAALOX MAXIMUM355 ML PO; +MEDROL DOSEPAK4 MG PO; +SORE THROAT 17177 ML MM; +SYMB80 INH
[2017-12-31 09:33] VITALS: BP 126/48
[2017-12-31 09:35] LABS: BASO % 0.3 % (0.0-1.0); EOS % 0.8 % (1.0-4.0); HEMATOCRIT 34.5 % (37.0-47.0); HEMOGLOBIN 10.5 g/dl (12.0-16.0); LYMPH # 1.1 10*3/uL (1.3-4.4); LYMPH % 27.2 % (27.0-41.0); MEAN CELL VOLUME 96.9 fl (81.0-99.0); MEAN CORPUSCULAR HGB 29.5 pg (27.0-31.0); MEAN CORPUSCULAR HGB CONC 30.4 g/dl (33.0-37.0); MEAN PLATELET VOLUME 8.9 fl (9.6-12.3); MONO # 0.3 10*3/uL (0.1-1.0); MONO % 6.4 % (3.0-9.0); NEUT # 2.5 10*3/uL (2.3-7.9); NEUT % 64.3 % (47.0-73.0); PLATELET COUNT AUTOMATED 152 10*3/uL (130-400); RED BLOOD COUNT 3.56 10*6/uL (4.10-5.10); RED CELL DISTRI WIDTH 14.4 % (0-14.5); WHITE BLOOD COUNT 3.9 10*3/uL (4.8-10.8)
[2017-12-31 09:43] LABS: ABG BASE EXCESS 8.6 mmol/L (-2.0-2.0); ABG HCO3 35.2 mmol/l (22-26); ABG O2 SATURATION 92.9 % (95-97); ARTERIAL BLOOD GAS PCO2 62.7 mmHg (35-45); ARTERIAL BLOOD GAS PH 7.369 (7.35-7.45); ARTERIAL BLOOD GAS PO2 70.6 mmHg (80-90)
[2017-12-31 09:44] LABS: ACT PARTIAL THROMBO TIME 23.1 SECONDS (20.8-31.5)
[2017-12-31 09:52] LABS: CREATININE 1.16 mg/dL (0.55-1.02); POTASSIUM 3.9 mmol/L (3.5-5.1); TROPONIN I 0.026 ng/ml (<0.045)
== END 2017-12-31 11:16 | disposition other institution (70) ==
LOC: ED 09:11
PROVIDERS: Emergency Medicine
DX: J96.12 Chronic respiratory failure with hypercapnia (principal); I50.9 Heart failure, unspecified; J44.9 Chronic obstructive pulmonary disease, unspecified; Z88.0 Allergy status to penicillin; Z91.040 Latex allergy status; Z88.8 Allergy status to other drugs, medicaments and biological substances; Z79.899 Other long term (current) drug therapy

== ENCOUNTER 2018-01-05 09:51 | Emergency (ER) | payer MEDICARE, OTHER ==
[~2018-01-05] VITALS: Ht 152.4 cm; Wt 97.5 kg
[2018-01-05 10:40] LABS: HEMATOCRIT 34.2 % (37.0-47.0); HEMOGLOBIN 10.2 g/dl (12.0-16.0); MEAN CELL VOLUME 99.7 fl (81.0-99.0); MEAN CORPUSCULAR HGB 29.7 pg (27.0-31.0); MEAN CORPUSCULAR HGB CONC 29.8 g/dl (33.0-37.0); MEAN PLATELET VOLUME 8.9 fl (9.6-12.3); NUCLEATED RED BLOOD CELL 0.4 % (0.0-0.0); PLATELET COUNT AUTOMATED 153 10*3/uL (130-400); RED BLOOD COUNT 3.43 10*6/uL (4.10-5.10); RED CELL DISTRI WIDTH 14.6 % (0-14.5); WHITE BLOOD COUNT 5.4 10*3/uL (4.8-10.8)
[2018-01-05 10:58] LABS: PLATELET SUFFICIENCY NORMAL (NORMAL); POLYCHROMASIA SLIGHT; TOTAL CELLS COUNTED 100 #CELLS
[2018-01-05 11:03] LABS: BUN 13 mg/dl (7-24); CHLORIDE 102 mmol/L (98-107); CREATININE 0.88 mg/dL (0.55-1.02); POTASSIUM 4.8 mmol/L (3.5-5.1); SODIUM 138 mmol/L (136-145)
[2018-01-05 11:11] LABS: TROPONIN I < 0.015 ng/ml (<0.045)
[2018-01-05 11:14] VITALS: BP 136/43
== END 2018-01-05 12:20 | disposition home or self-care (01) ==
LOC: ED 09:51
PROVIDERS: Emergency Medicine
DX: J96.11 Chronic respiratory failure with hypoxia (principal); R25.1 Tremor, unspecified; I11.0 Hypertensive heart disease with heart failure; I50.9 Heart failure, unspecified; J44.9 Chronic obstructive pulmonary disease, unspecified; Z79.899 Other long term (current) drug therapy; Z88.0 Allergy status to penicillin; Z91.040 Latex allergy status

== ENCOUNTER 2018-03-10 12:59 | Inpatient (IN) | payer MEDICARE, OTHER ==
[~2018-03-10] VITALS: Ht 162.5 cm; Wt 104.1 kg
--- NOTE | ~2018-03-10 | WRIGHTHP ---
[place], [place] PATIENT HISTORY AND PHYSICAL EXAM NAME: CALI TAM [facility] #: [id number] UNIT #: [id number] ROOM: [facility] DOCTOR: EZEQUIEL WOODS MD BIRTHDATE: [birth year] DOS: 03/10/2018 HISTORY OF PRESENT ILLNESS: The patient is 82-year-old. She is a resident of [facility], has been increasingly short of breath, running a low pulse ox of 84 on 4 liters of oxygen. She also states that [facility] and has been taking the diuretics. She developed increasing shortness of breath and was brought to the Emergency Room. She was given Lasix with some good diuresis. The patient denies having any chest pains or palpitations, does not have any fever or chills, does not have any abdominal pain, nausea, any emesis. PAST MEDICAL HISTORY: Significant for: 1. Chronic diastolic heart failure. 2. Chronic hypercapnic respiratory failure, on a BiPAP. Last hospitalization in December 2017 with similar problems. 3. Multiple UTIs. 4. Benign hypertension. 5. Myelofibrosis with pancytopenia. 6. Benign hypertension. 7. Mixed hyperlipidemia. 8. Aortic stenosis. MEDICATIONS: She is currently on Symbicort 80 two puffs twice daily, atenolol 25 mg daily, Os-Umer with vitamin D 500 twice a day, Plavix 75 daily, Colace 100 mg daily, iron 325 mg daily, Lasix 40 mg daily, Neurontin 100 q. 8 hours, guaifenesin 600 b.i.d. p.r.n., isosorbide 30 mg daily, levothyroxine 150 mcg Monday and Monday, 100 mcg the rest of the week, Lomotil p.r.n., loratadine 10 daily p.r.n., Singulair 10 daily, omeprazole 20 daily. SOCIAL HISTORY: Nonsmoker, does not use any alcohol. She is a resident of [facility] along with her . PHYSICAL EXAMINATION: GENERAL: She is awake and alert and oriented, currently on a BiPAP in the ICU. She is able to answer questions appropriately. VITAL SIGNS: Graphic trend shows blood pressure 132/70, pulse of 76, respirations 16, afebrile. LUNGS: With diminished breath sounds, a few scattered wheezes heard. HEART: Regular. ABDOMEN: Obese, soft. EXTREMITIES: Trace edema bilaterally. LABORATORY DATA: Intake and output for the last 24 hours was 79/25 negative. After the Lasix was given she diuresed about 2 liters. Blood gas showed a pH of 7.3, pCO2 of 75.5, pO2 of 71.6, bicarbonate 39.3, oxygen saturation 94.0. Urinalysis is negative, except for 2+ bacteria. Chest x-ray shows congestive heart failure with possible lower lobe pneumonia. ASSESSMENT AND PLAN: 1. Acute diastolic congestive heart failure, on IV diuretics. Echocardiogram [place], [place] PATIENT HISTORY AND PHYSICAL EXAM NAME: CALI TAM [facility] #: [id number] UNIT #: [id number] ROOM: [facility] DOCTOR: EZEQUIEL WOODS MD BIRTHDATE: [birth year] was last done in October 2016. We will go ahead and arrange for another one to see whether there is any change in the aortic stenosis or left ventricular function. 2. Left lower lobe pneumonia. IV antibiotics have been added. 3. Chronic hypercapnic respiratory failure with continued hypercapnia. Continue BiPAP. Consult Dr. Taveras. 4. Hypothyroidism. Continue home medications. EZEQUIEL WOODS MD CM:HISPHYS:PATIENT HISTORY AND PHYSICAL EXAMINATION [id number] EZEQUIEL WOODS MD 03/11/18 0906 interface
--- NOTE | ~2018-03-10 | PR ---
[place], [place] PROGRESS NOTE NAME: CALI TAM [facility] #: [id number] UNIT #: [id number] ROOM: [facility] DOCTOR: LISA BRANCH MD,CRISTIAN BIRTHDATE: [birth year] DOS: 03/12/2018 SUBJECTIVE: She has been noted increased chest congestion, coughing, and wheezing noted this morning. Denies symptoms of hemoptysis. She has been using the BiPAP as ordered and remains in the intensive care unit. Denies symptoms of hemoptysis, edema, or pain of the lower extremities. Denies any headache or diplopia. Remaining systems were reviewed. They were noted all negative. OBJECTIVE: VITAL SIGNS: The patient was also noted to have temperature at 8 a.m. as 100 degree Fahrenheit, 99.5 degree Fahrenheit temperature noted, respiratory rate 18, heart rate 72, blood pressure 144/54-118/42. Pulse oxygen saturation on 45% BiPAP 94% saturation. HEENT: Examination shows head was atraumatic. Eyes: No icterus. NECK: Supple. CARDIOVASCULAR: S1, S2 is audible. LUNGS: The patient was noted with moderate decreased breath sounds, expiratory wheezing. There were no crackles. ABDOMEN: Soft and obese. EXTREMITIES: Without any acute edema, visible skin lesion or rash. MUSCULOSKELETAL: No acute deformities. LABORATORY DATA: Urine culture noted with E. coli. The chest x-ray PA lateral view that was done this morning was reviewed and it shows pulmonary venous congestion marking with infiltration noted confirmed, moderate size in the left lower lung. Small pleural fluid was also assessed. IMPRESSION: 1. The patient continued with fever at this time was noted with acute pneumonia confirmed currently on PA and lateral chest x-ray. The patient continues to remain febrile with current medical management, require changes in antibiotic because of the residency in the nursing facility to broad spectrum with coverage for the gram-negative and gram-positive organisms. 2. The patient with acute on chronic hypercapnic and hypoxic respiratory failure secondary to the above. PLAN OF MANAGEMENT: The other antibiotic which has been currently used will be discontinued. Addition of the IV Zosyn for this patient and to start the patient on vancomycin. Monitor culture results. Sputum for culture will be ordered. Continue the BiPAP. Determination of the code status after reassessing the patient would be done. Other supportive therapy, plan of management and care plan. Additional treatment changes can be made based on progression of illness. Continue corticosteroid use. [place], [place] PROGRESS NOTE NAME: CALI TAM [facility] UNIT #: [id number] ROOM: [facility] DOCTOR: LISA BRANCH MD,CRISTIAN BIRTHDATE: [birth year] CRISTIAN GONZALEZ MD CM:PNTRANS [id number] CRISTIAN BRANCH MD 03/13/18 0204 interface
--- NOTE | ~2018-03-10 | PR ---
[place], [place] PROGRESS NOTE NAME: CALI TAM [facility] #: [id number] UNIT #: [id number] ROOM: [facility] DOCTOR: CRISTIAN SORIANO MD BIRTHDATE: [birth year] DOS: 03/13/2018 SUBJECTIVE: She has been noted with reduction in symptoms of chest congestion, but still noted coughing and expectorating sputum. The patient is intermittently in rather sitting position. She has not been noted symptoms of chest pain. Still noted shortness of breath, which has been treated for this patient with the use of the high flow oxygen with nasal cannula and the BiPAP use. She has been started on broad spectrum intravenous antibiotics yesterday. She denies symptoms of hemoptysis or any chest pain. Wheezing was still noted for this patient, which was noted with partial reduction. Denies symptoms of pain or edema of lower extremities. The remaining systems were reviewed. They were noted all negative. OBJECTIVE: VITAL SIGNS: T-max for the patient noted as 101.2 degree Fahrenheit at 2000 hours. This morning noted 99.7 degree Fahrenheit, respiratory 14-26, heart rate 75-70, blood pressure 172/58-130/50. Intake 1200, the output 4400 mL, negative 3.1 liters. The pulse oxygen saturation with 5 liters nasal cannula, 95% oxygen supplementation noted with 65% oxygen with BiPAP. HEENT: Examination shows head was atraumatic. Eyes nonicterus. NECK: Supple. CARDIOVASCULAR: S1, S2 is audible. LUNGS: Noted with expiratory wheezing as well as crackles in the lung mid and lower portion bilaterally. ABDOMEN: Soft and obese. EXTREMITIES: Mild edema. SKIN: No lesions or rashes. MUSCULOSKELETAL SYMPTOMS: Without any acute deformities. LABORATORY DATA: The culture of the sputum noticed normal victor manuel from yesterday, moderate white blood cells with rare gram-negative bacilli. BUN noted 33 today. Creatinine 1.02. Blood culture was noted no bacterial growth. The patient's CBC today: WBC count 3.7, hemoglobin 11.2, hematocrit normal, platelet count 118,000. IMPRESSION: 1. The patient who has been currently noted with an ongoing acute pneumonia that has developed recently. 2. The patient with evidence of [id number] hypercapnic hypoxic respiratory failure. 3. Acute exacerbation of chronic obstructive pulmonary disease. 4. Chronic obesity and debility. 5. Obstructive sleep apnea disorder as well. 6. Leukopenia secondary to current acute severe infection. Mild thrombocytopenia. PLAN OF MANAGEMENT: Current antibiotic, bronchodilators, oxygen supplementation. Monitoring blood cultures and the chest x-ray. Referral for long-term acute care facility as well will be needed. Other plan of management as previously. Monitoring the thrombocytopenia as well. [place], [place] PROGRESS NOTE NAME: CALI TAM [facility] #: [id number] UNIT #: [id number] ROOM: [facility] DOCTOR: CRISTIAN SORIANO MD BIRTHDATE: [birth year] CRISTIAN GONZALEZ MD CM:PNTRANS [id number] CRISTIAN BRANCH MD 03/14/18 0121 interface
--- NOTE | ~2018-03-10 | PR ---
[place], [place] PROGRESS NOTE NAME: CALI TAM [facility] #: [id number] UNIT #: [id number] ROOM: [facility] DOCTOR: CRISTIAN SORIANO MD BIRTHDATE: [birth year] DOS: 03/14/2018 PULMONARY PROGRESS NOTE SUBJECTIVE: She has been showing gradual reduction and improvement of respiratory symptom. Coughing has been noted with intermittent sputum expectoration. Denies symptoms of chest pain or hemoptysis. The patient does have mild edema in the lower extremities. She has expectorated copious amount of sputum in the last 24 hours as per the patient. She denies any symptoms of chest pain. Noted generalized weakness and fatigue. Denies symptoms of hemoptysis or postnasal drainage. Denies symptoms of dizziness or headache. Generalized weakness and fatigued was noted. Remaining systems reviewed, they were noted all negative. PHYSICAL EXAMINATION: VITAL SIGNS: For the patient, the temperature was noted as 99 degree Fahrenheit, normal temperature, respiratory rate of 14-24, heart rate of 64-62, and blood pressure 175/66-132/53. Pulse oxygen saturation of the patient noted on 50% oxygen 92% saturation. HEENT: Examination shows head was atraumatic. Eyes nonicterus. Chronic moderate obesity. CARDIOVASCULAR: S1, S2 audible. LUNGS: Noted scattered crackles and wheezing with moderate decreased breath sounds bilaterally. ABDOMEN: Soft, nontender, bowel sound present. EXTREMITIES: The patient was noted without any acute edema, clubbing or cyanosis. CENTRAL NERVOUS SYSTEM: For the patient was noted without any focal neurologic deficit. Cranial nerves 2-12 intact. SKIN: Visible skin, no lesions or rashes. LABORATORY DATA: CBC that was done on 03/14/2018, WBC count 2.9, hemoglobin 11.5, hematocrit 37.9, platelet count 125,000. The BMP of the patient, BUN 38, creatinine 1.08. Glucose 123, CO2 of 44, chloride of 92. Culture of the patient noted as light growth of yeast. Troponin of the patient this morning remains normal. IMPRESSION: 1. The patient with acute on chronic hypercapnic hypoxic respiratory failure. 2. Pneumonia. 3. Acute exacerbation of chronic obstructive pulmonary disease. 4. Metabolic alkalosis. 5. Chronic obesity. 6. Obstructive sleep apnea disorder. PLAN OF MANAGEMENT: Continuation of the bronchodilators, oxygen supplementation and the antibiotics. The patient will be started on the Diamox today for the medical management of metabolic alkalosis. Other additional treatment changes to be done for this patient based on the progression of the illness. Monitor chest x-ray. Assessment for the [facility] acute facility for the patient was [place], [place] PROGRESS NOTE NAME: CALI TAM UNIT #: [id number] ROOM: [facility] DOCTOR: LISA BRANCH MD,RCISTIAN BIRTHDATE: [birth year] pending. If the patient gets authorization for transfer to long-term acute care facility, she could be transferred there today. Obtain a chest x-ray today PA lateral view to assess the progression of the pneumonia. CRISTIAN GONZALEZ MD CM:WILVER [id number] CRISTIAN BRANCH MD 03/14/18 2233 interface
--- NOTE | ~2018-03-10 | PR ---
[place], [place] PROGRESS NOTE NAME: CALI TAM [facility] #: [id number] UNIT #: [id number] ROOM: [facility] DOCTOR: EZEQUIEL WOODS MD BIRTHDATE: [birth year] DOS: 03/12/2018 SUBJECTIVE: The patient is about the same, and does not have any new complaints. OBJECTIVE: VITAL SIGNS: Graphic trend shows a pressure 135/72, pulse of 58, respirations 20, temperature 98.6. LUNGS: Clear. HEART: Regular. LUNGS: Diminished breath sounds. HEART: Irregular. ABDOMEN: Obese, soft. EXTREMITIES: Without any edema. ASSESSMENT AND PLAN: 1. The patient with acute exacerbation of chronic obstructive pulmonary disease, on IV steroids, breathing treatments. Add Pulmicort because of continued wheezing, sputum cultures are pending. Already on guaifenesin. 2. Urinary tract infection with Escherichia coli, sensitive to cephalosporins. 3. Left lower lobe pneumonia, on antibiotics. 4. Chronic hypercapnic respiratory failure, on BiPAP, which seems to have improved the CO2 and oxygen levels. 5. Chronic diastolic congestive heart failure, already on IV diuretics. EZEQUIEL WOODS MD CM:PNTRANS [id number] EZEQUIEL WOODS MD 03/12/18 2105 interface
--- NOTE | ~2018-03-10 | CON ---
[place], [place] REPORT OF CONSULTATION NAME: CALI TAM UNIT #: [id number] ROOM: [facility] DOCTOR: SHA MENDEZ MD BIRTHDATE: [birth year] DOS: 03/13/2018 REASON FOR CONSULTATION: The patient in congestive heart failure. The patient examined in the Intensive Care Unit. HISTORY OF PRESENT ILLNESS: The patient is an 82-year-old female who has been known to me with a history of COPD, chronic hypoxia, history of diastolic heart failure. The patient admitted with significant shortness of breath. The patient states that recently she was having leg edema also. She had been started on IV diuretics and she ____ negative balance. Her breathing significantly improved. She is in sinus rhythm, no acute EKG changes suggestion of myocardial injury or infarction. PAST MEDICAL HISTORY: COPD, chronic respiratory failure, oxygen dependency, hypertension, aortic stenosis, hypothyroidism, failure to thrive, obesity, myelodysplastic syndrome. PAST SURGICAL HISTORY: Carotid endarterectomy, thyroidectomy, cardiac catheterization, bilateral carotid stents. SOCIAL HISTORY: Former smoker. FAMILY HISTORY: Positive for coronary artery disease. MEDICATIONS: She was on simvastatin, Singulair, Lasix, Imdur, Plavix, and levothyroxine. ALLERGIES: PENICILLIN. REVIEW OF SYSTEMS: CONSTITUTIONAL: No fever, no chills. HEENT: No visual disturbances, hearing problems. CARDIOVASCULAR: Complains of chest pressure and tightness. No chest pain. GASTROINTESTINAL: No nausea, no vomiting. GENITOURINARY: No dysuria, hematuria. RESPIRATORY SYSTEM: Significant shortness of breath. NEUROLOGIC: No syncope. PHYSICAL EXAMINATION: VITAL SIGNS: Blood pressure is 130/70, heart rate is 70, she is in sinus rhythm. HEENT: Unremarkable. NECK: Supple. Elevated jugular venous distention. LUNGS: Diminished breath sounds. HEART: Sounds are regular. ABDOMEN: Obese, soft, nontender. EXTREMITIES: 2+ edema. LABORATORY DATA: Hemoglobin 11.2, hematocrit 37. Electrolytes normal, creatinine is 1, potassium yesterday was 3.2, today is pending. EKG sinus with [place], [place] REPORT OF CONSULTATION NAME: CALI TAM UNIT #: [id number] ROOM: [facility] DOCTOR: SHA MENDEZ MD BIRTHDATE: [address]-T changes. I's and O's shows negative 3 liters. IMPRESSION: The patient with acute diastolic heart failure, chronic obstructive pulmonary disease, possible pneumonia, hypercapnic, hypoxic respiratory failure, hypertension, history of aortic stenosis. RECOMMENDATIONS: Agree with the present management and medications. Continue IV diuretics. Strict I's and O's. Continue the aspirin and Plavix. Consideration should be given for a small dose of beta blockers. We will get an echocardiogram and I will follow up. SHA MENDEZ MD CM:CONSTR:REPORT OF CONSULTATION 1 03/14/18 0002 interface
--- NOTE | ~2018-03-10 | PR ---
[place], [place] PROGRESS NOTE [id number] UNIT #: [id number] ROOM: [facility] DOCTOR: EZEQUIEL WOODS MD BIRTHDATE: [birth year] DOS: 03/14/2018 SUBJECTIVE: The patient early this morning started complaining of chest pain. Troponin x3 were done, which have come back negative. She was given one dose of morphine. This morning when I saw her, she still has chest discomfort. OBJECTIVE: VITAL SIGNS: Graphic trend shows pressure 151/55, pulse of 59, respirations 23, temperature 98.6. LUNGS: Diminished breath sounds, scattered rhonchi and wheezes. HEART: Regular. ABDOMEN: Obese. EXTREMITIES: Trace edema bilaterally. LABORATORY DATA: Urine output for the last 24 hours is negative balance by 1979. Labs this morning shows a WBC count 2.9, hemoglobin 11.5, hematocrit 37.9, platelets 125. BMP: Glucose 123, BUN 38, creatinine 1.08, sodium 139, potassium 4.5, chloride 92, bicarbonate 44. Sputum culture, light yeast. Troponin negative. ASSESSMENT AND PLAN: 1. Chest pain. The patient has rebound tenderness over the chest wall. This appears to be atypical musculoskeletal pain rather than cardiac. Unfortunately, because of the kidney functions being poor, she is not able to get any nonsteroidals, local moist heat will be given. 2. Chronic obstructive pulmonary disease exacerbation, on IV steroids. 3. Left lower lobe pneumonia, on IV antibiotics. The fever has resolved. 4. Moderate to severe diastolic heart failure. The patient is on high dose of diuretics and is diuresing nicely, developing some contraction metabolic alkalosis, may need to cut back on the dose of Lasix. 5. Adult failure to thrive. The plan is to discharge her to [facility] sometime today if approval is obtained. EZEQUIEL WOODS MD CM:PNTRANS [id number] EZEQUIEL WOODS MD 03/14/18 1006 interface
--- NOTE | ~2018-03-10 | PR ---
[place], [place] PROGRESS NOTE NAME: CALI TAM UNIT #: [id number] ROOM: [facility] DOCTOR: HARSHIL JOLLY MD BIRTHDATE: [birth year] DOS: 03/14/[address] Cheema. SUBJECTIVE: Dr. Cheema saw this patient yesterday. She has had shortness of breath and has had a very bad cough as well. She has chronic shortness of breath with exertion. She has not had any palpitation or dizziness and has been treated with antibiotics and IV furosemide at 40 mg IV q.12h. Fluid balance is -2 liters for the last 24 hours. She remains fairly short of breath and is on oxygen and still coughing. PHYSICAL EXAMINATION: GENERAL: The patient is sitting in a chair, tachypneic. Complexion is fine. VITAL SIGNS: Temperature is normal, pulse is regular with occasional irregularity. Blood pressure is 175/66. Previous blood pressure was 132/53. NECK: JVP is normal. AJR appears negative. She has 1+ edema in the lower extremities. RESPIRATORY: She is tachypneic and auscultation reveals severely reduced breath sounds on the left side and lots of crackles and even more crackles on the right side with diminished breath sounds. Chest x-ray demonstrates lower zone infiltrates in the left pleural effusion. IMPRESSION: 1. This patient probably has a chest infection, probably pneumonia. 2. Possible diastolic heart failure. She has diuresed very well and BUN is 38, creatinine 1.08 this time. It is probably prudent to continue with IV furosemide for another day or so and get a PA chest x-ray tomorrow. If there is substantial improvement in radiograph abnormality, then I think pulmonary edema was most likely present. I saw this patient on behalf of Dr. Cheema. [place], [place] PROGRESS NOTE NAME: CALI TAM [facility] UNIT #: [id number] ROOM: [facility] DOCTOR: HARSHIL JOLLY MD BIRTHDATE: [birth year] HARSHIL JOLLY MD CM:PNTRANS [id number] HARSHIL JOLLY MD 03/14/18 1058 interface
--- NOTE | ~2018-03-10 | EKG ---
[place], [place] ELECTROCARDIOGRAM REPORT NAME: CALI TAM UNIT #: [id number] ROOM: [facility] DOCTOR: LISA BRANCH MD,CRISTIAN BIRTHDATE: [birth year] DOS: 03/10/2018 The electrocardiogram was done on 03/10/2018. It was done at 1:25 p.m. Normal sinus rhythm were noted for the patient with left bundle branch block. CRISTIAN GONZALEZ MD CM:EKGRPT:ELECTROCARDIOGRAM REPORT 1342 [id number] CRISTIAN BRANCH MD
--- NOTE | ~2018-03-10 | PR ---
[place], [place] PROGRESS NOTE NAME: CALI TAM [facility] #: [id number] UNIT #: [id number] ROOM: [facility] DOCTOR: EZEQUIEL WOODS MD BIRTHDATE: [birth year] DOS: SUBJECTIVE: The patient is sitting up in chair. Today, she is less short of breath. She did diurese significantly with an increased dose of diuretics yesterday, but she did spike a fever 101.3 and medication adjustments were made. OBJECTIVE: VITAL SIGNS: This morning pressure is 135/47, pulse of 70, respirations 18, temperature 99. LUNGS: Diminished breath sounds, few scattered wheezes, much improved from yesterday and few rhonchi also. HEART: Regular. ABDOMEN: Obese. EXTREMITIES: Without any edema. ASSESSMENT AND PLAN: 1. Left lower lobe pneumonia with continued fever. Medications were changed by Dr. Taveras to meropenem and vancomycin. 2. Chronic obstructive pulmonary disease with acute exacerbation, on IV steroids. Sputum cultures have come back showing no bacterial growth, preliminary. 3. Diastolic congestive heart failure, moderate to severe. The patient is placed on diuretics higher dosages with some good diuresis about 3 liters negative balance. Routine labs will be ordered for tomorrow along with a chest x-ray. 4. Escherichia coli urinary tract infection, again on meropenem, which is covered. EZEQUIEL WOODS MD CM:PNTRANS 0823 EZEQUIEL WOODS MD 03/13/18 0916 interface
--- NOTE | ~2018-03-10 | CON ---
[place], [place] REPORT OF CONSULTATION NAME: CALI TAM [facility] #: [id number] UNIT #: [id number] ROOM: [facility] DOCTOR: CRISTIAN SORIANO MD BIRTHDATE: [birth year] DOS: 03/11/2018 PULMONARY CONSULTATION, EVALUATION, AND MANAGEMENT REASON FOR CONSULTATION: For acute respiratory failure assessment and management. CONSULTATION REQUESTED BY: Dr. Maricarmen Elliott. HISTORY OF PRESENT ILLNESS: This is an 82-year-old white female who has been known to me with a history of advanced COPD, chronic hypoxic and hypercapnic respiratory failure. The patient has been currently staying at the [facility] for long-term management of multiple medical problems. She has been assessed in the Emergency Room on 03/10/2018. The patient has reported increased symptoms of shortness of breath for the past couple of days with a rapid progression later on. The patient has been given intravenous Lasix by the EMS en route. The patient does take Lasix 40 mg daily at the nursing facility. She has reported symptoms of chest tightness and wheezing at times. She denies symptoms of hemoptysis. The patient has restarted the BiPAP yesterday. The patient was admitted in the intensive care unit and being managed with the BiPAP use for the respiratory failure management. The patient denies any symptoms of hemoptysis. She has reported reduction in the respiratory symptoms from yesterday. REVIEW OF SYSTEMS: CONSTITUTIONAL: Fatigue and tiredness reported. Denies symptoms of fever or chills. EYES: Denies any burning, redness or tenderness, discharge, or pain. EARS, NOSE, AND THROAT SYMPTOMS: Denies sore throat, hoarseness, otalgia, postnasal drainage, or epistaxis. CARDIOVASCULAR: Denies anginal pain, edema, pain of the lower extremities. GASTROINTESTINAL: Dysphagia, nausea, vomiting, diarrhea, abdominal pain, hematemesis, melena, or hematochezia. MUSCULOSKELETAL: Without any acute deformities reported or any pain. CENTRAL NERVOUS SYSTEM: The patient noted overall with general weakness, usually uses a wheelchair with little ambulation with the use of the walker. SKIN: Denies lesions or rashes. Remaining systems were reviewed. They were noted all negative. PAST MEDICAL HISTORY: 1. Chronic obstructive pulmonary disease. 2. Chronic hypoxic respiratory failure. 3. Use of oxygen supplementation 2 liters nasal cannula at rest and 4 liters with exertion. 4. Chronic hypercapnic respiratory failure. 5. Essential hypertension. 6. Aortic stenosis. 7. Hypothyroidism. 8. Failure to thrive. [place], [place] REPORT OF CONSULTATION NAME: CALI TAM UNIT #: [id number] ROOM: [facility] DOCTOR: LISA BRANCH MD,CRISTIAN BIRTHDATE: [birth year] 9. Mild obesity. 10. Myelodysplastic syndrome. The patient had pancytopenia previously. PAST SURGICAL HISTORY: 1. Left carotid endarterectomy. 2. Partial thyroidectomy for goiter. 3. Cardiac aspiration. 4. Bilateral carotid stent insertion. SOCIAL HISTORY: The patient is , has 2 children, lives in the [facility] in [place], [place]. She has been noted with tobacco use, started as a teenager, a pack of cigarettes per day until 2003. She worked in the [place] for 20 years as well. FAMILY HISTORY: Father at age of 5959 years old from complication related to respiratory failure. Mother at the age of 77 due to complications of congestive heart failure. MEDICATIONS: Which has been administered on this admission were noted as use of levothyroxine, simvastatin, Singulair, Lasix 40 mg IV b.i.d., thiamine, Mucinex, iron polysaccharide, atenolol, Imdur, Plavix, Solu-Medrol 40 mg q.8h., levothyroxine, DuoNeb q.4h., IV Rocephin, and other p.r.n. medications administered. DRUG ALLERGY HISTORY: 1. PENICILLIN. 2. LYRICA. PHYSICAL EXAMINATION: GENERAL: An 82-year-old female was noted to be awake and alert with oxygen supplementation, nasal cannula. Height of 5 feet 4 inches, weight of 230 pounds, BMI 39.5. She has just been using the BiPAP since last night. VITAL SIGNS: Shows the temperature max of 100.6 degree Fahrenheit, respiratory rate 21-24, heart rate 74-70, blood pressure 157/71-122/50. Pulse oxygen saturation on 2 L nasal cannula this morning 100%, previous 6 liters at 98% saturation, with the BiPAP 96-97% saturation. HEENT: Examination shows head was atraumatic. Eyes were nonicterus. CARDIOVASCULAR: S1, S2 is audible. LUNGS. Decreased breaths sounds are noted in the lungs bilaterally. Scattered crackles and wheezing was present. ABDOMEN: Soft with moderate to severe obesity. Bowel sounds present without tenderness. EXTREMITIES: The patient noted with still edema of lower extremities, which are noted with significant increased from previously. SKIN: Visible skin no lesions or rashes. CENTRAL NERVOUS SYSTEM: The patient noted without any acute deformities. General weakness, fatigue was noted. MUSCULOSKELETAL: Without acute deformities. LABORATORY DATA: CBC on 03/10/2018, WBC count normal, hemoglobin 11.1, [place], [place] REPORT OF CONSULTATION NAME: CALI TAM UNIT #: [id number] ROOM: [facility] DOCTOR: LISA BRANCH MD,[facility] BIRTHDATE: [birth year] hematocrit normal, platelet count normal. PT/PTT on 03/10/2018 was noted as normal. CMP on 03/10/2018, with the BUN 22, creatinine 1.07, CO2 of 38. The arterial blood gas is 40% oxygen, pH of 7.33, pCO2 of 75, pO2 of 71.6. Arterial blood gas this morning, the patient on 40% oxygen with the BiPAP, pH of 7.35, pCO2 of 74.9, and pO2 of 68.6. Urine culture heavy growth of gram-negative bacilli. The chest x-ray was also done one view in the Emergency Room was reviewed of pulmonary vascular congestion was noted with a mild elevation of the left hemidiaphragm, finding of congestive heart failure would be considered. The pleural fluid in the left side and/or atelectasis combination can be completely excluded because of the current elevation of the left hemidiaphragm. IMPRESSION: 1. The patient will be currently admitted to the hospital at this time, was noted with acute on chronic hypercapnic and hypoxic respiratory failure. 2. Acute exacerbation of chronic obstructive pulmonary disease. 3. Acute congestive heart failure with diastolic dysfunction. The last echocardiogram did not report any evidence of aortic stenosis on 12/26/2017, which was assessed by Dr. Cheema. 4. Chronic obesity. 5. Obstructive sleep apnea disorder as well. 6. Rule out area of atelectasis, infiltration, or elevation of the left hemidiaphragm for further additional assessment. 7. Peripheral edema related to congestive heart failure, which was resolving. 8. The patient with pancytopenia noted with myelodysplastic syndrome. CBC showing WBC count 3.7, hemoglobin 10, hematocrit 33.7, and platelet count of 99,000 this morning. PLAN OF MANAGEMENT: Obtain a PA lateral chest x-ray in the morning. Continue the BiPAP, the oxygen supplementation will be increased on the BiPAP to 45% from 40 % saturation of oxygen, maintain adequate oxygen saturation more than 92%. Continuation of bronchodilators and corticosteroids ____ exacerbation of chronic obstructive pulmonary disease. Continue diuretic therapy. Additional treatment changes to be made based on progression of the illness. The anticoagulation and/or the DVT prophylaxis will be ordered with subcutaneous Lovenox injections. Other supportive therapy, plan of management, possibly urinary tract infection colonization gram-negative organisms were suspected. Currently, empirically the patient receiving the IV Rocephin. Continue monitoring of BUN and creatinine and electrolytes because of diuretic use. Order the sputum for Gram stain and culture as well. Thanks for allowing me to participate in the care of this patient. [place], [place] REPORT OF CONSULTATION NAME: CALI TAM UNIT #: [id number] ROOM: [facility] DOCTOR: CRISTIAN SORIANO MD BIRTHDATE: [birth year] CRISTIAN GONZALEZ MD CM:CONSTR:REPORT OF CONSULTATION 1434 03/12/18 0111 interface
[2018-03-10 12:59] VITALS: BP 128/59
[2018-03-10] MEDS ORDERED: LASIX40 MG PO (13:16)
[2018-03-10] MEDS ORDERED: LEVOTHYROXINE150 MCG PO (13:17)
[2018-03-10] MEDS ORDERED: GUAIFENESIN600 MG PO (13:19)
[2018-03-10] MEDS ORDERED: K-TAB20 MEQ PO (13:20)
[2018-03-10 13:21] LABS: BASO % 0.2 % (0.0-1.0); EOS % 0.2 % (1.0-4.0); HEMATOCRIT 37.1 % (37.0-47.0); HEMOGLOBIN 11.1 g/dl (12.0-16.0); LYMPH # 0.6 10*3/uL (1.3-4.4); LYMPH % 9.2 % (27.0-41.0); MEAN CELL VOLUME 98.9 fl (81.0-99.0); MEAN CORPUSCULAR HGB 29.6 pg (27.0-31.0); MEAN CORPUSCULAR HGB CONC 29.9 g/dl (33.0-37.0); MEAN PLATELET VOLUME 8.8 fl (9.6-12.3); MONO # 0.3 10*3/uL (0.1-1.0); MONO % 5.4 % (3.0-9.0); NEUT # 5.2 10*3/uL (2.3-7.9); NEUT % 84.5 % (47.0-73.0); PLATELET COUNT AUTOMATED 114 10*3/uL (130-400); RED BLOOD COUNT 3.75 10*6/uL (4.10-5.10); RED CELL DISTRI WIDTH 14.7 % (0-14.5); WHITE BLOOD COUNT 6.1 10*3/uL (4.8-10.8)
[2018-03-10] MEDS ORDERED: SPIRIVA18 MCG PO (13:21)
[2018-03-10 13:31] LABS: ACT PARTIAL THROMBO TIME 24.1 SECONDS (20.8-31.5)
[2018-03-10 13:38] LABS: ALBUMIN 3.4 gm/dl (3.1-4.5); ALKALINE PHOSPHATASE 116 U/L (45-117); BUN 22 mg/dl (7-24); CHLORIDE 97 mmol/L (98-107); CREATININE 1.07 mg/dL (0.55-1.02); POTASSIUM 3.9 mmol/L (3.5-5.1); SGOT/AST 22 IU/L (3-35); SGPT/ALT 24 U/L (12-78); SODIUM 140 mmol/L (136-145); TOTAL PROTEIN 6.7 gm/dL (6.4-8.2)
[2018-03-10 13:39] LABS: TROPONIN I < 0.015 ng/ml (<0.045)
[2018-03-10 13:46] LABS: ABG BASE EXCESS 6.5 mmol/L (-2.0-2.0); ABG HCO3 35.2 mmol/l (22-26); ABG O2 SATURATION 98.3 % (95-97); ARTERIAL BLOOD GAS PH 7.274 (7.35-7.45)
[2018-03-10 13:50] LABS: ARTERIAL BLOOD GAS PCO2 78.5 mmHg (35-45)
[2018-03-10 14:18] LABS: BILIRUBIN NEGATIVE (NEGATIVE); BLOOD TRACE-INTACT (NEGATIVE); CLARITY CLEAR (CLEAR); COLOR STRAW (YELLOW); GLUCOSE NEGATIVE (NEGATIVE); KETONE NEGATIVE (NEGATIVE); LEUKO ESTERASE NEGATIVE (NEGATIVE); NITRITE NEGATIVE (NEGATIVE); PH 5.5 (5.0-9.0); UROBILINOGEN 0.2 E.U./dl (0.2-1.0)
[2018-03-10 14:20] VITALS: BP 126/45
[2018-03-10 14:34] LABS: BACTERIA 2+; RBC 0-2 rbc/hpf (0-2); WBC 0-2 wbc/hpf (0-5)
[2018-03-10 15:00] VITALS: BP 139/55
[2018-03-10] MEDS ORDERED: IMODIUM A-D2 M2 PO (15:10)
[2018-03-10] MEDS ORDERED: NYSTATIN CREAM15 GM T (15:15)
[2018-03-10] MEDS ORDERED: CHLORASEPTIC MM (15:16)
[2018-03-10] MEDS ORDERED: REMEDY ANTIFUN T (15:19)
[2018-03-10 17:00] VITALS: BP 114/45
[2018-03-10 19:15] LABS: ABG BASE EXCESS 11.4 mmol/L (-2.0-2.0); ABG HCO3 39.3 mmol/l (22-26); ARTERIAL BLOOD GAS PH 7.338 (7.35-7.45); ARTERIAL BLOOD GAS PO2 71.6 mmHg (80-90)
[2018-03-10 19:20] LABS: ARTERIAL BLOOD GAS PCO2 75.5 mmHg (35-45)
[2018-03-10 20:00] VITALS: BP 118/49
[2018-03-11] VITALS: BP 100/50
[2018-03-11 04:00] VITALS: BP 122/50
[2018-03-11 06:09] LABS: EOS % 0.3 % (1.0-4.0); HEMATOCRIT 33.7 % (37.0-47.0); HEMOGLOBIN 10.1 g/dl (12.0-16.0); LYMPH # 0.4 10*3/uL (1.3-4.4); LYMPH % 11.6 % (27.0-41.0); MEAN CELL VOLUME 96.6 fl (81.0-99.0); MEAN CORPUSCULAR HGB 28.9 pg (27.0-31.0); MEAN PLATELET VOLUME 9.2 fl (9.6-12.3); MONO # 0.2 10*3/uL (0.1-1.0); MONO % 5.9 % (3.0-9.0); NEUT % 81.7 % (47.0-73.0); PLATELET COUNT AUTOMATED 99 10*3/uL (130-400); RED BLOOD COUNT 3.49 10*6/uL (4.10-5.10); RED CELL DISTRI WIDTH 14.6 % (0-14.5); WHITE BLOOD COUNT 3.7 10*3/uL (4.8-10.8)
[2018-03-11 06:49] LABS: BUN 23 mg/dl (7-24); CHLORIDE 95 mmol/L (98-107); POTASSIUM 3.2 mmol/L (3.5-5.1); SODIUM 140 mmol/L (136-145)
[2018-03-11 06:50] LABS: CREATININE 0.86 mg/dL (0.55-1.02)
[2018-03-11 07:08] LABS: ABG HCO3 40.4 mmol/l (22-26); ABG O2 SATURATION 92.3 % (95-97); ARTERIAL BLOOD GAS PH 7.356 (7.35-7.45); ARTERIAL BLOOD GAS PO2 68.6 mmHg (80-90)
[2018-03-11 07:14] LABS: ARTERIAL BLOOD GAS PCO2 74.9 mmHg (35-45)
[2018-03-11 08:00] VITALS: BP 135/48
[2018-03-11 11:51] VITALS: BP 157/71
[2018-03-11 16:00] VITALS: BP 146/59
[2018-03-11 20:00] VITALS: BP 118/42
[2018-03-12] VITALS: BP 138/50
[2018-03-12 04:00] VITALS: BP 134/45
[2018-03-12 08:00] VITALS: BP 144/54
[2018-03-12 12:00] VITALS: BP 139/64
[2018-03-12 16:00] VITALS: BP 127/67
[2018-03-12 20:00] VITALS: BP 159/63
[2018-03-13] VITALS: BP 130/50
[2018-03-13 04:00] VITALS: BP 135/47
[2018-03-13 06:33] LABS: BASO % 0.3 % (0.0-1.0); EOS % 0.3 % (1.0-4.0); HEMOGLOBIN 11.2 g/dl (12.0-16.0); LYMPH # 0.5 10*3/uL (1.3-4.4); LYMPH % 13.7 % (27.0-41.0); MEAN CELL VOLUME 96.4 fl (81.0-99.0); MEAN CORPUSCULAR HGB 29.2 pg (27.0-31.0); MEAN CORPUSCULAR HGB CONC 30.3 g/dl (33.0-37.0); MONO # 0.2 10*3/uL (0.1-1.0); MONO % 6.2 % (3.0-9.0); PLATELET COUNT AUTOMATED 118 10*3/uL (130-400); RED BLOOD COUNT 3.84 10*6/uL (4.10-5.10); RED CELL DISTRI WIDTH 14.1 % (0-14.5); WHITE BLOOD COUNT 3.7 10*3/uL (4.8-10.8)
[2018-03-13 06:36] LABS: BUN 33 mg/dl (7-24); CREATININE 1.02 mg/dL (0.55-1.02)
[2018-03-13 08:00] VITALS: BP 172/58
[2018-03-13 12:00] VITALS: BP 141/61
[2018-03-13 16:00] VITALS: BP 129/72
[2018-03-13 20:00] VITALS: BP 132/53
[2018-03-14] VITALS: BP 151/55
[2018-03-14 04:51] LABS: HEMATOCRIT 37.9 % (37.0-47.0); HEMOGLOBIN 11.5 g/dl (12.0-16.0); LYMPH # 0.6 10*3/uL (1.3-4.4); MEAN CELL VOLUME 95.2 fl (81.0-99.0); MEAN CORPUSCULAR HGB 28.9 pg (27.0-31.0); MEAN CORPUSCULAR HGB CONC 30.3 g/dl (33.0-37.0); MEAN PLATELET VOLUME 9.8 fl (9.6-12.3); MONO # 0.2 10*3/uL (0.1-1.0); PLATELET COUNT AUTOMATED 125 10*3/uL (130-400); RED BLOOD COUNT 3.98 10*6/uL (4.10-5.10); RED CELL DISTRI WIDTH 13.6 % (0-14.5); WHITE BLOOD COUNT 2.9 10*3/uL (4.8-10.8)
[2018-03-14 05:04] LABS: CREATININE 1.08 mg/dL (0.55-1.02); POTASSIUM 4.5 mmol/L (3.5-5.1)
[2018-03-14 08:00] VITALS: BP 175/66
== END 2018-03-14 14:28 | DRG 291 ==
LOC: ED 12:59 → ICCU 14:31 → EDHOLD 14:31 → ICCU 14:58
PROVIDERS: Internal Medicine; Internal Medicine Critical Care Medicine; Nurse Practitioner Family
PROC: 5A09357 Assistance with Respiratory Ventilation, Less than 24 Consecutive Hours, Continuous Positive Airway Pressure (ICD-10-PCS; principal; 2018-03-10)
PROC: 5A09357 Assistance with Respiratory Ventilation, Less than 24 Consecutive Hours, Continuous Positive Airway Pressure (ICD-10-PCS; 2018-03-11)
PROC: 5A09357 Assistance with Respiratory Ventilation, Less than 24 Consecutive Hours, Continuous Positive Airway Pressure (ICD-10-PCS; 2018-03-12)
PROC: 5A09357 Assistance with Respiratory Ventilation, Less than 24 Consecutive Hours, Continuous Positive Airway Pressure (ICD-10-PCS; 2018-03-13)
DX: I11.0 Hypertensive heart disease with heart failure (principal); J96.21 Acute and chronic respiratory failure with hypoxia; N17.9 Acute kidney failure, unspecified; D61.818 Other pancytopenia; E87.3 Alkalosis; J18.1 Lobar pneumonia, unspecified organism; J96.22 Acute and chronic respiratory failure with hypercapnia; J44.1 Chronic obstructive pulmonary disease with (acute) exacerbation; N39.0 Urinary tract infection, site not specified; I50.33 Acute on chronic diastolic (congestive) heart failure; Z66 Do not resuscitate; Z51.5 Encounter for palliative care; E78.2 Mixed hyperlipidemia; E03.9 Hypothyroidism, unspecified; G47.33 Obstructive sleep apnea (adult) (pediatric); E66.9 Obesity, unspecified; R07.89 Other chest pain; R62.7 Adult failure to thrive; B96.20 Unspecified Escherichia coli [E. coli] as the cause of diseases classified elsewhere; Z16.19 Resistance to other specified beta lactam antibiotics; Z83.6 Family history of other diseases of the respiratory system; Z88.0 Allergy status to penicillin; Z88.8 Allergy status to other drugs, medicaments and biological substances; Z91.040 Latex allergy status; Z79.899 Other long term (current) drug therapy; Z99.81 Dependence on supplemental oxygen; Z90.710 Acquired absence of both cervix and uterus; Z82.49 Family history of ischemic heart disease and other diseases of the circulatory system; Z80.9 Family history of malignant neoplasm, unspecified; Z68.39 Body mass index [BMI] 39.0-39.9, adult

== ENCOUNTER 2018-04-24 20:58 | Inpatient (IN) | payer MEDICARE, OTHER ==
[~2018-04-24] VITALS: Ht 152.4 cm; Wt 108.1 kg
--- NOTE | ~2018-04-24 | WRIGHTHP ---
[place], [place] PATIENT HISTORY AND PHYSICAL EXAM NAME: CALI TAM UNIT #: [id number] ROOM: 412 DOCTOR: EZEQUIEL WOODS MD BIRTHDATE: [birth year] DOS: 04/24/2018 HISTORY OF PRESENT ILLNESS: This patient is 83 years old, resident of [facility], was having hypoxemia at the [facility], so brought to the Emergency Room. The patient denies having any chest pains or palpitations. Does have increased leg edema. Have no fever or chills, has a slight cough which is productive of scant amounts of sputum. PAST MEDICAL HISTORY: Significant for: 1. Hypoxic respiratory failure with a prolonged hospitalization at [facility], an [facility] hospital for more than a month. She just arrived back at the [facility]. 2. Chronic diastolic congestive heart failure. 3. Chronic hypercapnic respiratory failure. 4. Benign hypertension. 5. Myelofibrosis with pancytopenia. 6. Benign hypertension. 7. Mixed hyperlipidemia. 8. Aortic stenosis. MEDICATIONS: Plavix, Colace, iron, Lasix, Neurontin, isosorbide, levothyroxine, loratadine, Singulair, aspirin, Symbicort, atenolol. SOCIAL HISTORY: Nonsmoker, does not use any alcohol. PHYSICAL EXAMINATION: GENERAL: She is awake and alert and oriented. VITAL SIGNS: Graphic trend shows pressure 125/61, pulse of 91, respirations 20, temperature 97.8. LUNGS: Diminished breath sounds. HEART: Regular. ABDOMEN: Obese. EXTREMITIES: About 2+ pitting edema bilaterally. ASSESSMENT AND PLAN: 1. Hypoxic respiratory failure, most likely from pneumonia, on IV antibiotics. 2. Chronic diastolic congestive heart failure. The patient is placed on IV diuretics. 3. Chronic obstructive pulmonary disease with mild exacerbation. Bronchospasm seems to be resolving. We will decrease the steroids and make it p.o. soon. 4. Benign hypertension, controlled. Consult Dr. Cheema. [place], [place] PATIENT HISTORY AND PHYSICAL EXAM NAME: CALI TAM UNIT #: [id number] ROOM: 412 DOCTOR: EZEQUIEL WOODS MD BIRTHDATE: [birth year] EZEQUIEL WOODS MD CM:HISPHYS:PATIENT HISTORY AND PHYSICAL EXAMINATION 0833 [id number] EZEQUIEL WOODS MD 04/25/18 0850 interface
--- NOTE | ~2018-04-24 | PR ---
[place], [place] PROGRESS NOTE NAME: [facility] TAM [facility] #: [id number] UNIT #: [id number] ROOM: 412 DOCTOR: EZEQUIEL WOODS MD BIRTHDATE: [birth year] DOS: 04/26/[address] Foley's input. SUBJECTIVE: The patient is not having any complaints today. OBJECTIVE: VITAL SIGNS: Blood pressure is 135/60, pulse of 78, respirations 18, temperature 98.4. LUNGS: Diminished breath sounds, clear. HEART: Regular. ABDOMEN: Obese, soft. EXTREMITIES: Decreased redness and swelling. ASSESSMENT AND PLAN: 1. Acute diastolic congestive heart failure, improving. 2. Leg edema with mild cellulitis, resolving. 3. Chronic obstructive pulmonary disease exacerbation, improved and stable. The plan is to discharge her to home today. EZEQUIEL WOODS MD CM:PNTRANS 0720 1408 EZEQUIEL WOODS MD 04/26/18 1407 interface
--- NOTE | ~2018-04-24 | PR ---
[place], [place] PROGRESS NOTE NAME: CALI TAM UNIT #: [id number] ROOM: 412 DOCTOR: HARSHIL JOLLY MD BIRTHDATE: [birth year] DOS: 04/25/2018 I am seeing this patient on behalf of Dr. Cheema. She is still short of breath, but clearly better than when she came in. She still has some cough. No palpitation or dizziness. She has not been walked since admission. HARSHIL JOLLY MD CM:PNTRANS 31 7 HARSHIL JOLLY MD 04/26/18206 interface
--- NOTE | ~2018-04-24 | CON ---
[place], [place] REPORT OF CONSULTATION [facility] [id number] UNIT #: [id number] ROOM: 412 DOCTOR: HARSHIL JOLLY MD BIRTHDATE: [birth year] DOS: 04/25/2018 HISTORY OF PRESENT ILLNESS: This is an 83-year-old -[place] woman with a history of severe COPD, chronic respiratory failure, who has had pneumonia and chronic diastolic heart failure with exacerbations. She has essential hypertension and mixed hyperlipidemia and some degree of aortic stenosis as well as myelofibrosis with pancytopenia. She was in this hospital with diastolic heart failure earlier this month and was discharged. She comes back now because of increasing swelling of the legs and usual shortness of breath. No palpitation, dizziness or loss of conscious. No fever or chills. HOME MEDICATIONS: Included Symbicort, DuoNeb, Spiriva, Tylenol, atenolol 25 mg daily, calcium carbonate, clopidogrel 75 daily, ferrous sulfate 325 mg daily, 40 mg of furosemide daily, gabapentin 100 mg q. 8 h., Imdur 30 mg daily, levothyroxine 100 mcg daily, loratadine 10 mg daily, Singulair, omeprazole, potassium chloride 20 mEq daily, simvastatin, thiamine and nystatin cream. PHYSICAL EXAMINATION: GENERAL: This is a patient who is moderately obese. She is lying in bed and has oxygen on. She is mildly tachypneic. VITAL SIGNS: Pulse is regular at 76, blood pressure 120/50. NECK: JVP appears to be normal. There is no carotid bruit. HEART: There is no cardiomegaly. No murmurs are present. EXTREMITIES: She has 2+ edema in the lower extremity with some erythema of the pretibial area. LUNGS: Breath sounds are severely diminished with lot of adventitious sounds. ABDOMEN: Large and supple, nontender. No bruit. DIAGNOSTIC STUDIES: Chest x-ray did not demonstrate any obvious abnormality. BUN 12, creatinine 1.14. Sodium 141, potassium 4.0. Serum albumin 3.2 g/dL and NT-proBNP 2320. Hemoglobin 11.2 mg/dL. An ECG on admission demonstrates normal sinus rhythm at 90 beats per minute and complete left bundle-branch block. IMPRESSION: This patient has severe chronic obstructive pulmonary disease and I think there is some degree of exacerbation of this which may be causing shortness of breath. She has modest edema of the lower extremities with some erythema, but chest x-ray do not show any pulmonary congestion. JVP is normal, so I doubt if there is a diastolic heart failure. However to ease this edema and erythema, it is probably a good idea to try IV furosemide for a day or 2. Possibility of cellulitis should be entertained. I thank you on behalf of Dr. Cheema for this consult. [place], [place] REPORT OF CONSULTATION NAME: ANELCALI L UNIT #: [id number] ROOM: 412 DOCTOR: HARSHIL JOLLY MD BIRTHDATE: [birth year] HARSHIL JOLLY MD CM:CONSTR:REPORT OF CONSULTATION 1940 04/26/18 0226 interface
[~2018-04-24 20:58] MED LIST changes: +CHLORASEPTIC MM; +GUAIFENESIN600 MG PO; +IMODIUM A-D2 M2 PO; +K-TAB20 MEQ PO; +LASIX40 MG PO; +LEVOTHYROXINE150 MCG PO; +REMEDY ANTIFUN T; +SPIRIVA18 MCG PO
[2018-04-24 21:00] VITALS: BP 146/50
[2018-04-24 21:48] LABS: BASO % 0.1 % (0.0-1.0); EOS # 0.1 10*3/uL (0.0-0.4); EOS % 0.9 % (1.0-4.0); HEMATOCRIT 36.7 % (37.0-47.0); HEMOGLOBIN 11.2 g/dl (12.0-16.0); LYMPH # 0.9 10*3/uL (1.3-4.4); LYMPH % 14.1 % (27.0-41.0); MEAN CELL VOLUME 95.8 fl (81.0-99.0); MEAN CORPUSCULAR HGB 29.2 pg (27.0-31.0); MEAN CORPUSCULAR HGB CONC 30.5 g/dl (33.0-37.0); MEAN PLATELET VOLUME 9.5 fl (9.6-12.3); MONO # 0.3 10*3/uL (0.1-1.0); MONO % 4.3 % (3.0-9.0); NEUT # 5.3 10*3/uL (2.3-7.9); NEUT % 79.7 % (47.0-73.0); PLATELET COUNT AUTOMATED 130 10*3/uL (130-400); RED BLOOD COUNT 3.83 10*6/uL (4.10-5.10); RED CELL DISTRI WIDTH 15.9 % (0-14.5); WHITE BLOOD COUNT 6.7 10*3/uL (4.8-10.8)
[2018-04-24 22:00] VITALS: BP 122/52
[2018-04-24 22:06] LABS: ACT PARTIAL THROMBO TIME 21.8 SECONDS (20.8-31.5)
[2018-04-24 22:07] LABS: ALBUMIN 3.2 gm/dl (3.1-4.5); ALKALINE PHOSPHATASE 83 U/L (45-117); BUN 22 mg/dl (7-24); CHLORIDE 102 mmol/L (98-107); CREATININE 1.14 mg/dL (0.55-1.02); SGOT/AST 11 IU/L (3-35); SGPT/ALT 20 U/L (12-78); SODIUM 141 mmol/L (136-145); TOTAL PROTEIN 6.5 gm/dL (6.4-8.2)
[2018-04-24 22:08] LABS: TROPONIN I < 0.015 ng/ml (<0.045)
[2018-04-24 22:32] LABS: BILIRUBIN NEGATIVE (NEGATIVE); BLOOD TRACE-LYSED (NEGATIVE); CLARITY SL CLOUDY (CLEAR); COLOR YELLOW (YELLOW); GLUCOSE NEGATIVE (NEGATIVE); KETONE TRACE (NEGATIVE); LEUKO ESTERASE 2+ (NEGATIVE); NITRITE POSITIVE (NEGATIVE); PH 5.5 (5.0-9.0); UROBILINOGEN 0.2 E.U./dl (0.2-1.0)
[2018-04-24 22:33] VITALS: BP 123/49
[2018-04-24 22:40] LABS: BACTERIA 2+; EPITHELIAL CELLS 40-45; WBC 41-50 wbc/hpf (0-5)
[2018-04-24 22:58] LABS: ABG BASE EXCESS 5.4 mmol/L (-2.0-2.0); ABG HCO3 32.2 mmol/l (22-26); ABG O2 SATURATION 96.2 % (95-97); ARTERIAL BLOOD GAS PCO2 62.6 mmHg (35-45); ARTERIAL BLOOD GAS PH 7.332 (7.35-7.45); ARTERIAL BLOOD GAS PO2 81.5 mmHg (80-90)
[2018-04-24 23:46] VITALS: BP 129/82
[2018-04-25 00:30] VITALS: BP 113/47
[2018-04-25] MEDS ORDERED: SPIRIVA RESPIMAT4 GM INH (01:13)
[2018-04-25] MEDS ORDERED: CHLORHEXIDINE473 M1 PO (01:16)
[2018-04-25] MEDS ORDERED: ARTIFICIAL TEAR30 M4 OP (01:19)
[2018-04-25 08:00] VITALS: BP 125/61
[2018-04-25 12:00] VITALS: BP 122/61
[2018-04-25 16:00] VITALS: BP 120/50
[2018-04-25 20:00] VITALS: BP 127/52
[2018-04-26] VITALS: BP 135/60
[2018-04-26] MEDS ORDERED: MUCINEX ER600 MG PO (03:01)
[2018-04-26] MEDS ORDERED: CIPRO500 MG PO (07:21)
[2018-04-26 08:00] VITALS: BP 150/70
== END 2018-04-26 13:05 | disposition other institution (70) | DRG 291 ==
LOC: ED 20:58 → EDHOLD 23:58 → 4E 23:58
PROVIDERS: Student in an Organized Health Care Education/Training Program
DX: I11.0 Hypertensive heart disease with heart failure (principal); J18.9 Pneumonia, unspecified organism; D61.818 Other pancytopenia; J96.11 Chronic respiratory failure with hypoxia; J44.0 Chronic obstructive pulmonary disease with (acute) lower respiratory infection; I35.0 Nonrheumatic aortic (valve) stenosis; J44.1 Chronic obstructive pulmonary disease with (acute) exacerbation; L03.119 Cellulitis of unspecified part of limb; Z68.42 Body mass index [BMI] 45.0-49.9, adult; I50.33 Acute on chronic diastolic (congestive) heart failure; E78.2 Mixed hyperlipidemia; E66.9 Obesity, unspecified; Z66 Do not resuscitate; Z51.5 Encounter for palliative care; E78.00 Pure hypercholesterolemia, unspecified; E89.0 Postprocedural hypothyroidism; Z90.710 Acquired absence of both cervix and uterus; Z79.899 Other long term (current) drug therapy; Z82.49 Family history of ischemic heart disease and other diseases of the circulatory system; Z80.1 Family history of malignant neoplasm of trachea, bronchus and lung; Z87.01 Personal history of pneumonia (recurrent)

== ENCOUNTER 2018-05-10 03:15 | Inpatient (IN) | payer MEDICARE, OTHER ==
[2018-05-10] VITALS (9 sets, daily range): BP systolic 90–118; BP diastolic 40–54
[~2018-05-10] VITALS: Ht 152.4 cm; Wt 103.5 kg
--- NOTE | ~2018-05-10 | PR ---
[place], [place] PROGRESS NOTE NAME: CALI TAM [facility] #: [id number] UNIT #: [id number] ROOM: 411 DOCTOR: ALEKSEY SIMENTAL MD BIRTHDATE: [birth year] DOS: 05/12/2018 SUBJECTIVE: The patient says she is breathing better. OBJECTIVE: VITAL SIGNS: Blood pressure 108/42, heart rate 62 beats per minute, breathing 18 times per minute, temperature 98.4 degrees Fahrenheit. GENERAL APPEARANCE: The patient is alert and oriented x 3, in no visible distress. Generalized weakness and obesity. HEENT AND NECK: Exam within normal limits. CARDIOVASCULAR SYSTEM: Heart rate is regular in rate and rhythm. S1 and S2 normally audible. LUNGS: Clear to auscultation. ABDOMEN: Soft, nontender. No obvious organomegaly. Bowel sounds are present. EXTREMITIES: Without significant cyanosis or edema. IMPRESSION AND PLAN: 1. The patient with urinary tract infection with resistant Escherichia coli, not sensitive to ceftriaxone, which has been discontinued and instead I am giving her cefoxitin. The patient is allergic to PENICILLIN, but the patient was already on ceftriaxone, so she should be able to tolerate cefoxitin. 2. Diastolic type congestive heart failure, still showing up on the chest x-ray that the patient has congestive heart failure despite of diuresis. 3. Acute exacerbation of chronic obstructive pulmonary disease being treated with bronchodilators. 4. Advance adult failure to thrive and obesity. The patient is working with physical therapy. ALEKSEY SIMENTAL MD CM:PNTRANS 1703 [id number] ALEKSEY SIMENTAL MD 05/12/18 1908 interface
--- NOTE | ~2018-05-10 | WRIGHTHP ---
[place], [place] PATIENT HISTORY AND PHYSICAL EXAM NAME: CALI TAM [facility] #: [id number] UNIT #: [id number] ROOM: 411 DOCTOR: EZEQUIEL WOODS MD BIRTHDATE: [birth year] DOS: 05/10/2018 HISTORY OF PRESENT ILLNESS: The patient is 83 years old, very well known to us, who comes in often with shortness of breath. The patient was having acute onset of shortness of breath in the [facility] and was sent out. She was evaluated in the Emergency Room and was admitted with acute diastolic congestive heart failure. The patient denies having any chest pains or palpitations. For some reason on the medication administration record medication list from the [facility], Lasix was not listed even though the patient was discharged from here last on diuretics. The patient denies having any chest pains or palpitations and does not have any fever or chills. PAST MEDICAL HISTORY: Significant for: 1. Chronic diastolic dysfunction. 2. Multiple hospitalizations with congestive heart failure. 3. Chronic obstructive pulmonary disease. 4. Benign hypertension. 5. Myelofibrosis with pancytopenia. 6. Benign hypertension. 7. Mixed hyperlipidemia. 8. Aortic stenosis. MEDICATIONS CURRENTLY THAT SHE IS ON: Breathing treatments, atenolol 25, atorvastatin 10, Plavix 75, Colace 100, iron 325, isosorbide 30, levothyroxine 100 mcg, loratadine 10 daily, Singulair 10 daily, omeprazole 20 daily, Dulera 2 puffs twice a day and B1 vitamin daily. SOCIAL HISTORY: The patient is a nonsmoker and does not use any alcohol. She lives at the [facility] with her . PHYSICAL EXAMINATION: GENERAL: On examination, she is awake and alert and oriented. VITAL SIGNS: Blood pressure is 115/53, pulse of 70, respirations 18 and temperature 97.7. RESPIRATORY: Lungs have diminished breath sounds and few scattered wheezes. HEART: Regular. GASTROINTESTINAL: Abdomen is obese. EXTREMITIES: About 2+ pitting edema. LABORATORY EVALUATION AND RADIOGRAPHIC EVALUATION: A chest x-ray shows congestive heart failure. Lactic acid is normal. Comprehensive glucose is 109, BUN 20 and creatinine 1.07. Electrolytes are normal. ASSESSMENT AND PLAN: 1. Acute diastolic congestive heart failure. The patient is placed on diuretics and continued cardiac medications. A consultation with Dr. Cheema has been obtained. Echocardiogram was done last month, which showed an ejection fraction, which is normal. 2. Possible urinary tract infection: Urine culture is pending. Intravenous antibiotics are started. [place], [place] PATIENT HISTORY AND PHYSICAL EXAM NAME: CALI TAM [facility] #: [id number] UNIT #: [id number] ROOM: [facility] DOCTOR: EZEQUIEL WOODS MD BIRTHDATE: [birth year] 3. Benign hypertension, controlled. 4. Type 2 diabetes. DIET: Low-sodium diet. Blood sugars are being checked. EZEQUIEL WOODS MD CM:HISPHYS:PATIENT HISTORY AND PHYSICAL EXAMINATION 0735 0801 EZEQUIEL WOODS MD 05/10/18 0800 interface
--- NOTE | ~2018-05-10 | CON ---
[place], [place] REPORT OF CONSULTATION NAME: CALI TAM [facility] #: [id number] UNIT #: [id number] ROOM: 411 DOCTOR: HARSHIL JOLLY MD BIRTHDATE: [birth year] DOS: 05/10/2018 I am seeing this patient for Dr. Mills. HISTORY OF PRESENT ILLNESS: This is an 83-year-old -[place] woman who was in this hospital about 2 weeks ago for exacerbation of COPD and perhaps a diastolic heart failure. She has a severe COPD, essential hypertension, hyperlipidemia, mild aortic stenosis and chronic diastolic heart failure. She also has myelofibrosis with pancytopenia. She had noticed increasing shortness of breath over 2-3 days with some swelling in the legs. She had no palpitations, chest pain, or heaviness in the chest and orthopnea. She has not been expectorating any sputum. HOME MEDICATIONS: Include atenolol, atorvastatin, Colace, isosorbide mononitrate, levothyroxine, loratadine, Singulair, omeprazole, Dulera, and vitamin B1 and iron tablets. PHYSICAL EXAMINATION: GENERAL: This is a patient who is moderately obese. She is short. She is modestly tachypneic and has oxygen on. She is not cyanosed, not jaundiced. There is no finger clubbing. VITAL SIGNS: Pulse is 66 regular, blood pressure is 115/53. NECK: JVP is normal. AJR is negative. There is no carotid bruit. CARDIOVASCULAR: There is no cardiomegaly. Auscultation reveals a grade 1-2/6 systolic murmur over the aortic area. She has 2+ edema in the lower extremities. RESPIRATORY: She is tachypneic. Auscultation reveals severely reduced breath sounds with inspiratory and expiratory crackles or rhonchi, more so on the left side. LABORATORY DATA: An ECG showed normal sinus rhythm with a left bundle-branch block. Chest x-ray demonstrated perihilar densities with some pulmonary congestion. There may be small left-sided pleural effusion. Hemoglobin is 9.9 g/dL. WBC is 3.7 and the platelets 170,000. BUN is 15, creatinine 0.92. Sodium 144, potassium 3.9. She had an echocardiogram on the of this month, which demonstrated normal LV size and normal LV systolic function with the EF of 65%, normal right ventricle size. IMPRESSION: 1. Chronic diastolic heart failure with acute exacerbation. You have started her on IV furosemide. I think that should be used for the next couple of days and then probably back off. She should go home on a loop diuretic. 2. Severe chronic obstructive pulmonary disease with the possible exacerbation. I thank you for this consult. [place], [place] REPORT OF CONSULTATION [id number] UNIT #: [id number] ROOM: 411 DOCTOR: HARSHIL JOLLY MD BIRTHDATE: [birth year] HARSHIL JOLLY MD CM:CONSTR:REPORT OF CONSULTATION 05/19/18 0918 interface
--- NOTE | ~2018-05-10 | PR ---
[place], [place] PROGRESS NOTE [id number] UN[facility] #: [id number] ROOM: 411 DOCTOR: EZEQUIEL WOODS MD BIRTHDATE: [birth year] DOS: SUBJECTIVE: The patient is resting comfortably, does not have any new complaints. OBJECTIVE: VITAL SIGNS: Graphic trend shows pressure 143/51, pulse of 68, respirations 16, temperature 98.2. LUNGS: Diminished breath sounds. No wheezes, rales, or rhonchi heard. HEART: Regular. ABDOMEN: Obese, soft, nontender. EXTREMITIES: Without any edema. LABORATORY DATA: Urine culture showing ESBL E. coli. Avoid using meropenem on this patient. MRSA nares was negative. Chest x-ray shows chronic diastolic CHF. Lab work shows chronic pancytopenia. ASSESSMENT AND PLAN: 1. Diastolic congestive heart failure, improved and back to her baseline. 2. Urinary tract infection with extended-spectrum beta-lactamases. Avoid antibiotics if we can. Macrodantin will be prescribed. 3. Benign hypertension, controlled. The plan is to discharge her back to the [facility] today. EZEQUIEL WOODS MD CM:PNTRANS 1 7 EZEQUIEL WOODS MD 05/14/18726 interface
--- NOTE | ~2018-05-10 | PR ---
[place], [place] [id number] UN[facility] #: [id number] ROOM: 411 DOCTOR: EZEQUIEL WOODS MD BIRTHDATE: [birth year] DOS: 05/11/2018 SUBJECTIVE: The patient is not having any new complaints. OBJECTIVE: VITAL SIGNS: Blood pressure is 100/46, pulse of 60, respirations 22, temperature 97.3. LUNGS: Diminished breath sounds, a few scattered wheezes. HEART: Regular. ABDOMEN: Obese, soft, nontender. EXTREMITIES: Without any edema. ASSESSMENT AND PLAN: 1. Diastolic dysfunction with congestive heart failure. 2. Chronic obstructive pulmonary disease with mild exacerbation. 3. Urinary tract infection with heavy gram-negative bacteria. 4. Adult failure to thrive. The patient to go back to the [facility] soon. Right now, continue treatment with IV antibiotics and IV diuretics. We do not have the identification on the urine culture yet. We will adjust medicines once we have the results. EZEQUIEL WOODS MD CM:PNTRANS [phone] EZEQUIEL WOODS MD 05/11/18 1248 interface
--- NOTE | ~2018-05-10 | DS ---
[place], [place] DISCHARGE SUMMARY NAME: CALI TAM [facility] #: [id number] UNIT #: [id number] ROOM: 411 DOCTOR: EZEQUIEL WOODS MD BIRTHDATE: [birth year] DOS: DISCHARGE SUMMARY HOSPITAL COURSE: This patient is 83 years old, very well known to us, comes in with complaints of difficulty breathing. The patient with some reason was not on her Lasix, which is a chronic medication for her, not sure how and when this medicine was discontinued. The patient was found to be in diastolic CHF and was admitted. After admission, the patient was placed on IV diuretics. Consultation with Dr. Mares was obtained. Dr. Ruiz did see the patient. The patient is not having any new problems. She requested the Lui catheter be left in, but has been growing ESBL E. coli, so this patient needs to avoid too many antibiotic usage as well as not have a Lui catheter. The patient is stable and has improved significantly on the treatment plan, so the plan is to discharge her back to the residential. DISCHARGE DIAGNOSES: 1. Diastolic congestive heart failure. 2. Urinary tract infection with extended-spectrum beta-lactamases. Please isolate the patient and do not treat the patient with antibiotics unless significant infection is noticed. Avoid Lui catheter. 3. Chronic lymphedema. 4. Benign hypertension. 5. Hypothyroidism. 6. Chronic obstructive pulmonary disease with chronic respiratory failure. MEDICATIONS: Oxygen, continue titrating such that oxygen saturation more than 92. DuoNeb q.4, furosemide 40 daily, Macrodantin 100 b.i.d. for 7 days, montelukast 10 daily, Colace 100 at bedtime, Plavix 75 daily, levothyroxine 100 mcg daily, atenolol 25 daily, iron 325 daily, DuoNeb q.6, isosorbide 30 daily, omeprazole 20 daily, Tylenol 650 q.6 p.r.n., loratadine 10 daily, Maalox 30 mL q.4 p.r.n., Tylenol 650 at bedtime, Dulera 200 two inhalations b.i.d., atorvastatin 10 daily, thiamine 100 daily, CPAP usage to be continued at the residential at night, and guaifenesin 600 mg p.o. b.i.d. [place], [place] DISCHARGE SUMMARY NAME: CALI TAM UNIT #: [id number] ROOM: 411 DOCTOR: EZEQUIEL WOODS MD BIRTHDATE: [birth year] EZEQUIEL WOODS MD CM:ANDREW [id number] EZEQUIEL WOODS MD 05/14/18 0736 interface
--- NOTE | ~2018-05-10 | PR ---
[place], [place] PROGRESS NOTE NAME: CALI TAM [facility] #: [id number] UNIT #: [id number] ROOM: 411 DOCTOR: ALEKSEY SIMENTAL MD BIRTHDATE: [birth year] DOS: 05/13/2018 SUBJECTIVE: The patient continues to feel better. OBJECTIVE: VITAL SIGNS: Blood pressure 123/45, heart rate of 64 beats per minute, breathing 18 times per minute, afebrile. GENERAL APPEARANCE: The patient is alert and oriented x 3, in no visible distress. The patient has generalized weakness. HEENT AND NECK: Exam within normal limits. CARDIOVASCULAR SYSTEM: Heart rate is regular in rate and rhythm. S1 and S2 normally audible. LUNGS: Clear to auscultation. ABDOMEN: Soft, nontender. No obvious organomegaly. Bowel sounds are present. EXTREMITIES: Without significant cyanosis or edema. IMPRESSION: 1. The patient with urinary tract infection with resistant Escherichia coli sensitive to cefoxitin antibiotic change yesterday. 2. Acute diastolic type congestive heart failure, still present on the chest x-ray. The patient is being diuresed. 3. Acute exacerbation of chronic obstructive pulmonary disease with shortness of breath, being treated with bronchodilators and improving. 4. Advanced adult failure to thrive and obesity. The patient to work with physical therapy. ALEKSEY SIMENTAL MD CM:PNTRANS [id number] ALEKSEY SIMENTAL MD 05/14/18 0420 interface
[~2018-05-10 03:15] MED LIST changes: +ARTIFICIAL TEAR30 M4 OP; +CHLORHEXIDINE473 M1 PO; +MUCINEX ER600 MG PO; +SPIRIVA RESPIMAT4 GM INH
[2018-05-10 03:47] LABS: BASO % 0.2 % (0.0-1.0); EOS # 0.1 10*3/uL (0.0-0.4); EOS % 1.1 % (1.0-4.0); HEMATOCRIT 32.5 % (37.0-47.0); HEMOGLOBIN 9.7 g/dl (12.0-16.0); LYMPH # 1.4 10*3/uL (1.3-4.4); LYMPH % 25.7 % (27.0-41.0); MEAN CELL VOLUME 99.4 fl (81.0-99.0); MEAN CORPUSCULAR HGB 29.7 pg (27.0-31.0); MEAN CORPUSCULAR HGB CONC 29.8 g/dl (33.0-37.0); MEAN PLATELET VOLUME 8.9 fl (9.6-12.3); MONO # 0.3 10*3/uL (0.1-1.0); MONO % 5.5 % (3.0-9.0); NEUT # 3.7 10*3/uL (2.3-7.9); NEUT % 66.4 % (47.0-73.0); PLATELET COUNT AUTOMATED 167 10*3/uL (130-400); RED BLOOD COUNT 3.27 10*6/uL (4.10-5.10); RED CELL DISTRI WIDTH 17.7 % (0-14.5); WHITE BLOOD COUNT 5.5 10*3/uL (4.8-10.8)
[2018-05-10 04:06] LABS: ALKALINE PHOSPHATASE 91 U/L (45-117); BUN 20 mg/dl (7-24); CHLORIDE 100 mmol/L (98-107); CREATININE 1.07 mg/dL (0.55-1.02); POTASSIUM 4.1 mmol/L (3.5-5.1); SGOT/AST 14 IU/L (3-35); SGPT/ALT 16 U/L (12-78); SODIUM 142 mmol/L (136-145)
[2018-05-10 04:14] LABS: TROPONIN I < 0.015 ng/ml (<0.045)
[2018-05-10 04:16] LABS: BILIRUBIN 1+ (NEGATIVE); BLOOD NEGATIVE (NEGATIVE); CLARITY CLEAR (CLEAR); COLOR YELLOW (YELLOW); GLUCOSE NEGATIVE (NEGATIVE); KETONE TRACE (NEGATIVE); LEUKO ESTERASE 1+ (NEGATIVE); NITRITE POSITIVE (NEGATIVE); SPECIFIC GRAVITY 1.025 (1.005-1.030)
[2018-05-10 04:21] LABS: BACTERIA 2+; EPITHELIAL CELLS 0-2; RBC 0-2 rbc/hpf (0-2); WBC 21-30 wbc/hpf (0-5)
[2018-05-10] MEDS ORDERED: DIPHENHYDRAMINE25 M3 PO (06:34)
[2018-05-10] MEDS ORDERED: TYLENOL325 M2 PO (06:34)
[2018-05-10] MEDS ORDERED: DULERA 200 MCG8.8 GM PO (06:41)
[2018-05-10] MEDS ORDERED: LIPITOR10 MG PO (06:45)
[2018-05-10] MEDS ORDERED: SORE THROAT 17177 ML MM (06:49)
[2018-05-10] MEDS ORDERED: VITAMIN B-1100 M1 PO (06:50)
[2018-05-11] VITALS: BP 100/46
[2018-05-11 07:05] LABS: BASO % 0.5 % (0.0-1.0); EOS # 0.1 10*3/uL (0.0-0.4); EOS % 1.6 % (1.0-4.0); HEMOGLOBIN 9.8 g/dl (12.0-16.0); LYMPH # 1.5 10*3/uL (1.3-4.4); LYMPH % 34.8 % (27.0-41.0); MEAN CELL VOLUME 99.7 fl (81.0-99.0); MEAN CORPUSCULAR HGB 28.7 pg (27.0-31.0); MEAN CORPUSCULAR HGB CONC 28.8 g/dl (33.0-37.0); MEAN PLATELET VOLUME 8.9 fl (9.6-12.3); MONO # 0.2 10*3/uL (0.1-1.0); MONO % 5.1 % (3.0-9.0); NEUT # 2.5 10*3/uL (2.3-7.9); NEUT % 57.1 % (47.0-73.0); PLATELET COUNT AUTOMATED 171 10*3/uL (130-400); RED BLOOD COUNT 3.41 10*6/uL (4.10-5.10); RED CELL DISTRI WIDTH 17.8 % (0-14.5); WHITE BLOOD COUNT 4.3 10*3/uL (4.8-10.8)
[2018-05-11 07:37] LABS: BUN 16 mg/dl (7-24); CHLORIDE 101 mmol/L (98-107); CREATININE 0.88 mg/dL (0.55-1.02); POTASSIUM 3.7 mmol/L (3.5-5.1); SODIUM 145 mmol/L (136-145)
[2018-05-11 08:00] VITALS: BP 119/56
[2018-05-11 12:00] VITALS: BP 124/54
[2018-05-11 16:00] VITALS: BP 141/66
[2018-05-11 20:00] VITALS: BP 117/58
[2018-05-12] VITALS: BP 116/52
[2018-05-12 08:00] VITALS: BP 121/52
[2018-05-12 12:00] VITALS: BP 121/56
[2018-05-12 16:00] VITALS: BP 108/42
[2018-05-12 20:00] VITALS: BP 146/44
[2018-05-13] VITALS: BP 116/57
[2018-05-13 08:00] VITALS: BP 118/50
[2018-05-13 12:00] VITALS: BP 126/62
[2018-05-13 16:00] VITALS: BP 123/45
[2018-05-13 20:00] VITALS: BP 100/36
[2018-05-14] VITALS: BP 143/51
[2018-05-14] MEDS ORDERED: LASIX40 MG PO (06:57)
[2018-05-14] MEDS ORDERED: MACRODANTIN100 M1 PO (06:58)
[2018-05-14 08:00] VITALS: BP 104/50
== END 2018-05-14 11:22 | disposition other institution (70) | DRG 190 ==
LOC: ED 03:15 → 4E 05:00 → EDHOLD 05:00 → 4E 05:11
PROVIDERS: Emergency Medicine; Internal Medicine
PROC: 5A09357 Assistance with Respiratory Ventilation, Less than 24 Consecutive Hours, Continuous Positive Airway Pressure (ICD-10-PCS; principal; 2018-05-11)
PROC: 5A09357 Assistance with Respiratory Ventilation, Less than 24 Consecutive Hours, Continuous Positive Airway Pressure (ICD-10-PCS; 2018-05-12)
PROC: 5A09357 Assistance with Respiratory Ventilation, Less than 24 Consecutive Hours, Continuous Positive Airway Pressure (ICD-10-PCS; 2018-05-13)
PROC: 5A09357 Assistance with Respiratory Ventilation, Less than 24 Consecutive Hours, Continuous Positive Airway Pressure (ICD-10-PCS; 2018-05-14)
DX: J44.1 Chronic obstructive pulmonary disease with (acute) exacerbation (principal); I50.33 Acute on chronic diastolic (congestive) heart failure; N39.0 Urinary tract infection, site not specified; E11.9 Type 2 diabetes mellitus without complications; Z96.653 Presence of artificial knee joint, bilateral; I11.0 Hypertensive heart disease with heart failure; I89.0 Lymphedema, not elsewhere classified; R62.7 Adult failure to thrive; E03.9 Hypothyroidism, unspecified; E78.2 Mixed hyperlipidemia; Z96.612 Presence of left artificial shoulder joint; Z96.611 Presence of right artificial shoulder joint; Z79.899 Other long term (current) drug therapy; Z88.0 Allergy status to penicillin; Z91.038 Other insect allergy status; Z88.8 Allergy status to other drugs, medicaments and biological substances; Z87.01 Personal history of pneumonia (recurrent); Z87.440 Personal history of urinary (tract) infections; Z90.710 Acquired absence of both cervix and uterus; Z82.49 Family history of ischemic heart disease and other diseases of the circulatory system; Z80.9 Family history of malignant neoplasm, unspecified

== ENCOUNTER 2018-05-27 19:19 | Inpatient (IN) | payer MEDICARE, OTHER ==
[~2018-05-27] VITALS: Ht 152.4 cm; Wt 105.3 kg
--- NOTE | ~2018-05-27 | PR ---
[place], [place] PROGRESS NOTE NAME: CALI TAM [facility] #: [id number] UNIT #: [id number] ROOM: 427 DOCTOR: ALEKSEY SIMENTAL MD BIRTHDATE: [birth year] DOS: 05/29/2018 SUBJECTIVE: The patient is starting to breathe better. OBJECTIVE: VITAL SIGNS: Blood pressure 130/81, heart rate of 58 beats per minute, breathing 20 times per minute, and temperature 98 degrees Fahrenheit. GENERAL APPEARANCE: The patient is alert and oriented x 3, in no visible distress. Morbid obesity. HEENT AND NECK: Exam within normal limits. CARDIOVASCULAR SYSTEM: Heart rate is regular in rate and rhythm. S1 and S2 normally audible. LUNGS: Mild expiratory wheezing. ABDOMEN: Soft, nontender. No obvious organomegaly. Bowel sounds are present. EXTREMITIES: Without significant cyanosis or edema. IMPRESSION AND PLAN: 1. Acute exacerbation of chronic obstructive pulmonary disease with shortness of breath and wheezing, starting to improve with treatment. 2. Morbid obesity. The patient working with dietary. 3. Benign essential hypertension, treated and controlled. 4. Advanced adult failure to thrive. We are taking bedsore precautions using an air mattress and every 2 hour turning. 5. Pollen allergies, treated and controlled. ALEKSEY SIMENTAL MD CM:PNTRANS [phone] ALEKSEY SIMENTAL MD 05/30/18 1154 interface
--- NOTE | ~2018-05-27 | WRIGHTHP ---
[place], [place] PATIENT HISTORY AND PHYSICAL EXAM NAME: CALI TAM [facility] #: [id number] UNIT #: [id number] ROOM: 427 DOCTOR: ALEKSEY SIMENTAL MD BIRTHDATE: [birth year] DOS: 05/27/2018 CONTINUATION IMPRESSION: 1. The patient with acute exacerbation of chronic obstructive pulmonary disease with increased shortness of breath and wheezing to be treated with oxygen, nebulizer treatments, corticosteroids and bronchodilators. 2. Morbid obesity. The patient to work with dietary. 3. Benign essential hypertension. Blood pressures to be monitored and treated. 4. Hypothyroidism, replaced with levothyroxine. 5. Hyperlipidemia, treated with simvastatin. 6. 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 ALEKSEY SIMENTAL MD CM:HISPHYS:PATIENT HISTORY AND PHYSICAL EXAMINATION [phone] ALEKSEY SIMENTAL MD 05/29/18 2112 interface
--- NOTE | ~2018-05-27 | DS ---
[place], [place] DISCHARGE SUMMARY NAME: CALI TAM [facility] #: [id number] UNIT #: [id number] ROOM: 427 DOCTOR: ALEKSEY SIMENTAL MD BIRTHDATE: [birth year] DOS: 05/30/2018 DISCHARGE DIAGNOSES: 1. Acute exacerbation of chronic obstructive pulmonary disease, improved with treatment. 2. Morbid obesity. 3. Benign essential hypertension. 4. Hypothyroidism. 5. Hyperlipidemia. 6. 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 7. Mixed hyperlipidemia. 8. Hiatal hernia, gastroesophageal reflux disease and reflux esophagitis. 9. Bilateral carotid stent placement for stenosis. 10. Chronic respiratory failure and sleep apnea, treated with CPAP. 11. POLLEN allergies. 12. Hypothyroidism. 13. Chronic lymphedema involving lower extremities with skin changes. 14. Chronic diastolic type congestive heart failure. HOSPITAL COURSE: The patient presented to the Emergency Department at [facility] with cough, shortness of breath and wheezing for a few days. The patient was admitted for acute over chronic respiratory failure with acute exacerbation of COPD and treated with corticosteroids, oxygen, nebulizer treatments, antibiotics and her breathing has significantly improved. The patient lives at a custodial facility where she will be discharged with antibiotics and tapering dose of corticosteroids. 1. Morbid obesity. The patient worked with Dietary for weight loss diet. 2. Mixed hyperlipidemia, being treated with simvastatin, followed with blood work. 3. Hypothyroidism, treated with levothyroxine. 4. Benign essential hypertension, treated and controlled. 5. 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 The patient remains on Imdur and also simvastatin to reduce her cholesterol and lipids. LABORATORY DATA: Normal serum electrolytes. White cell count of 4100, hemoglobin 10, normal platelets and differential count. DISCHARGE MANAGEMENT: Medrol Dosepak, loratadine 10 mg a day, Imdur 30 mg a day, furosemide 40 mg a day, Plavix 75 mg a day, atenolol 25 mg daily, omeprazole 20 mg a day, levothyroxine 100 mcg daily, simvastatin 10 mg a day, Singulair 10 mg a day, Colace 100 mg a day, Medrol Dosepak, DuoNebs every 4 to 6 hours, loperamide p.r.n., Cipro 500 mg b.i.d. for 1 week. [place], [place] DISCHARGE SUMMARY NAME: CALI TAM UNIT #: [id number] ROOM: 427 DOCTOR: ALEKSEY SIMENTAL MD BIRTHDATE: [birth year] ALEKSEY SIMENTAL MD CM:ANDREW [phone] ALEKSEY SIMENTAL MD 05/30/18 1453 interface
--- NOTE | ~2018-05-27 | EKG ---
[place], [place] ELECTROCARDIOGRAM REPORT NAME: CALI TAM UNIT #: [id number] ROOM: 427 DOCTOR: CONCHITA DRAFT REPORT BIRTHDATE: [birth year] [facility] Test Date: 2018-05-27 Test Time: 19:51:42 Pat Name: CALI TMA Department: ER Room: 18 Gender: F Reamer Hand: : 1935 Requested By: STEPHANIE GARDNER PA-C Order Number: [id number] Reading MD: Miguel Cheema MD Measurements Intervals [place] Rate: 69 P: 58 ME: 187 QRS: -42 QRSD: 146 T: 112 QT: 415 QTc: 445 Interpretive Statements Sinus rhythm Atrial premature complexes Left bundle branch block n lead(s) I,III,aVL Electronically Signed On 06-05-2018 4:39:47 PDT by Miguel Cheema MD CM:EKGRPT:ELECTROCARDIOGRAM REPORT [phone] STEPHANIE GARDNER PA-C EPIPHANY DRAFT REPORT STEPHANIE GARDNER PA-C
--- NOTE | ~2018-05-27 | WRIGHTHP ---
[place], [place] PATIENT HISTORY AND PHYSICAL EXAM NAME: CALI TAM [facility] #: [id number] UNIT #: [id number] ROOM: 427 DOCTOR: ALEKSEY SIMENTAL MD BIRTHDATE: [birth year] DOS: 05/27/2018 HISTORY OF PRESENT ILLNESS: The patient is an 83-year-old female with a past medical history of; 1. Chronic diastolic type congestive heart failure. 2. Chronic lymphedema involving lower extremities with skin changes. 3. Benign essential hypertension. 4. Hypothyroidism. 5. Chronic obstructive pulmonary disease and chronic respiratory failure. 6. POLLEN allergies. 7. Chronic respiratory failure and sleep apnea, treated with CPAP. 8. Benign essential hypertension. 9. Rheumatic heart disease history. 10. Hiatal hernia, gastroesophageal reflux disease and reflux esophagitis. 11. Bilateral carotid stent placements. The patient presented to the Emergency Department at [facility] from [place] with complaints of cough and shortness of breath for last few days. No chest pains. No nausea, vomiting, diarrhea or constipation. The patient was diagnosed as having acute exacerbation of COPD with acute over chronic respiratory failure and recommended for admission and further management. After admission, the patient's breathing has slightly improved. PHYSICAL EXAMINATION: VITAL SIGNS: Blood pressure 137/57, heart rate 75 beats per minute, breathing 20 times per minute, temperature 98.5 degrees Fahrenheit. GENERAL: Obesity. HEENT AND NECK: Extraocular movements are intact. Sclerae are anicteric. Oral mucosa is moist and clean. No obvious facial weakness. Neck is supple without any lymphadenopathy. No thyromegaly. No JVD. No carotid arterial bruits. LUNGS: Decreased breath sounds, some mild expiratory wheezing. CARDIOVASCULAR SYSTEM: Heart rate is regular in rate and rhythm. S1 and S2 normally audible. No significant murmur or any other abnormal cardiac sounds. ABDOMEN: Soft, nontender. No obvious organomegaly. Bowel sounds are present. No obvious herniation. EXTREMITIES: Without significant cyanosis or edema. Warm to touch. CENTRAL NERVOUS SYSTEM: Alert and oriented x 3. Cranial nerves II-XII are intact. Speech is normal. The patient is able to move all extremities. Normal muscle strength. Deep tendon reflexes are equal on both sides. Plantars were downgoing. REVIEW OF SYSTEMS: RESPIRATORY: Increased shortness of breath and wheezing along with cough. CARDIOVASCULAR: No chest pains or palpitations. GASTROINTESTINAL: No nausea, vomiting, diarrhea, constipation. FAMILY HISTORY: Noncontributory. SOCIAL HISTORY: Remote history of smoking cigarettes 40 years back. Denies any alcohol or drug abuse. [place], [place] PATIENT HISTORY AND PHYSICAL EXAM NAME: CALI TAM UNIT #: [id number] ROOM: 427 DOCTOR: ALEKSEY SIMENTAL MD BIRTHDATE: [birth year] HOME MEDICATIONS: The patient takes Symbicort, DuoNebs, Spiriva, Tylenol. IMPRESSION: 1. The patient with acute exacerbation of chronic obstructive pulmonary disease with increased shortness of breath and wheezing to be treated with oxygen, nebulizer treatments, corticosteroids and bronchodilators. 2. Morbid obesity. The patient to work with dietary. 3. Benign essential hypertension. Blood pressures to be monitored and treated. 4. Hypothyroidism, replaced with levothyroxine. 5. Hyperlipidemia, treated with simvastatin. 6. 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 ALEKSEY SIMENTAL MD CM:HISPHYS:PATIENT HISTORY AND PHYSICAL EXAMINATION [phone] ALEKSEY SIMENTAL MD 05/29/18 2111 interface
[~2018-05-27 19:19] MED LIST changes: +DIPHENHYDRAMINE25 M3 PO; +DULERA 200 MCG8.8 GM PO; +LIPITOR10 MG PO; +MACRODANTIN100 M1 PO; +TYLENOL325 M2 PO; +VITAMIN B-1100 M1 PO
[2018-05-27 19:20] VITALS: BP 122/50
[2018-05-27] MEDS ORDERED: GUAIFENESIN600 MG PO (19:42)
[2018-05-27] MEDS ORDERED: ZOCOR10 MG PO (19:42)
[2018-05-27] MEDS ORDERED: POTASSIUM CHLO20 ME3 PO (19:44)
[2018-05-27] MEDS ORDERED: CALCIUM CA500 MG/5 M PO (19:46)
[2018-05-27] MEDS ORDERED: IMODIUM A-D2 M2 PO (19:48)
[2018-05-27] MEDS ORDERED: GUAIFENESIN DM1 EACH PO (19:49)
[2018-05-27] MEDS ORDERED: NYSTATIN CREAM15 GM T (19:50)
[2018-05-27] MEDS ORDERED: SYMB80 INH (19:50)
[2018-05-27 19:51] LABS: BASO % 0.2 % (0.0-1.0); EOS # 0.1 10*3/uL (0.0-0.4); EOS % 2.4 % (1.0-4.0); HEMATOCRIT 35.3 % (37.0-47.0); LYMPH # 1.4 10*3/uL (1.3-4.4); LYMPH % 32.7 % (27.0-41.0); MEAN CORPUSCULAR HGB 28.9 pg (27.0-31.0); MEAN CORPUSCULAR HGB CONC 28.3 g/dl (33.0-37.0); MEAN PLATELET VOLUME 9.1 fl (9.6-12.3); MONO # 0.2 10*3/uL (0.1-1.0); MONO % 5.1 % (3.0-9.0); NEUT # 2.4 10*3/uL (2.3-7.9); NEUT % 58.9 % (47.0-73.0); PLATELET COUNT AUTOMATED 134 10*3/uL (130-400); RED BLOOD COUNT 3.46 10*6/uL (4.10-5.10); RED CELL DISTRI WIDTH 16.7 % (0-14.5); WHITE BLOOD COUNT 4.1 10*3/uL (4.8-10.8)
[2018-05-27] MEDS ORDERED: SPIRIVA RESPIMAT4 GM INH (19:51)
[2018-05-27 20:15] LABS: ALBUMIN 3.3 gm/dl (3.1-4.5); ALKALINE PHOSPHATASE 85 U/L (45-117); BUN 19 mg/dl (7-24); CHLORIDE 99 mmol/L (98-107); CREATININE 0.99 mg/dL (0.55-1.02); POTASSIUM 4.3 mmol/L (3.5-5.1); SGOT/AST 9 IU/L (3-35); SGPT/ALT 11 U/L (12-78); SODIUM 143 mmol/L (136-145); TOTAL PROTEIN 6.5 gm/dL (6.4-8.2)
[2018-05-27 20:22] LABS: TROPONIN I < 0.015 ng/ml (<0.045)
[2018-05-27 20:30] VITALS: BP 127/50
[2018-05-27 21:20] VITALS: BP 120/74
[2018-05-28] VITALS: BP 149/68
[2018-05-28 08:00] VITALS: BP 137/57
[2018-05-28 12:00] VITALS: BP 114/83
[2018-05-28 16:00] VITALS: BP 137/52
[2018-05-28 20:00] VITALS: BP 139/53
[2018-05-29] VITALS: BP 130/60
[2018-05-29 08:00] VITALS: BP 155/56
[2018-05-29 12:00] VITALS: BP 141/62
[2018-05-29 16:00] VITALS: BP 130/81
[2018-05-29 20:00] VITALS: BP 151/68
[2018-05-30] VITALS: BP 160/70
[2018-05-30 08:00] VITALS: BP 115/76
[2018-05-30] MEDS ORDERED: MEDROL DOSEPAK4 MG PO (10:31)
[2018-05-30] MEDS ORDERED: CIPRO500 MG PO (10:31)
[2018-05-31] MEDS ORDERED: ARTIFICIAL TEA1 EACH OP (13:22)
[2018-05-31] MEDS ORDERED: CALMOSEPTINE OI71 GM T (13:25)
[2018-05-31] MEDS ORDERED: CHLORHEXIDINE473 M1 PO (13:26)
[2018-05-31] MEDS ORDERED: NEURONTIN100 MG PO (13:28)
== END 2018-05-30 14:47 | DRG 189 ==
LOC: ED 19:19 → EDHOLD 20:54 → 4E 20:54
PROVIDERS: Physician Assistant
DX: J96.20 Acute and chronic respiratory failure, unspecified whether with hypoxia or hypercapnia (principal); J44.1 Chronic obstructive pulmonary disease with (acute) exacerbation; I50.32 Chronic diastolic (congestive) heart failure; I11.0 Hypertensive heart disease with heart failure; E66.01 Morbid (severe) obesity due to excess calories; Z68.42 Body mass index [BMI] 45.0-49.9, adult; I25.10 Atherosclerotic heart disease of native coronary artery without angina pectoris; I89.0 Lymphedema, not elsewhere classified; E78.2 Mixed hyperlipidemia; R62.7 Adult failure to thrive; K44.9 Diaphragmatic hernia without obstruction or gangrene; G47.30 Sleep apnea, unspecified; K21.0 Gastro-esophageal reflux disease with esophagitis; E89.0 Postprocedural hypothyroidism; Z88.0 Allergy status to penicillin; Z91.040 Latex allergy status; Z88.8 Allergy status to other drugs, medicaments and biological substances; Z87.891 Personal history of nicotine dependence; Z90.49 Acquired absence of other specified parts of digestive tract; Z90.710 Acquired absence of both cervix and uterus; Z82.49 Family history of ischemic heart disease and other diseases of the circulatory system; Z80.9 Family history of malignant neoplasm, unspecified; Z91.048 Other nonmedicinal substance allergy status; Z79.899 Other long term (current) drug therapy

== ENCOUNTER 2018-05-31 11:08 | Inpatient (IN) | payer MEDICARE, OTHER ==
[~2018-05-31] VITALS: Ht 152.4 cm; Wt 102.7 kg
[2018-05-31] VITALS (8 sets, daily range): BP systolic 112–163; BP diastolic 44–88
--- NOTE | ~2018-05-31 | PR ---
[place], [place] PROGRESS NOTE [id number] #: [id number] ROOM: 532 DOCTOR: EZEQUIEL WOODS MD BIRTHDATE: [birth year] DOS: SUBJECTIVE: The patient is doing fine. She is lying in bed, comfortable, without any problems. OBJECTIVE: VITAL SIGNS: Graphic trend shows a pressure 132/43, pulse of 68, respirations 20, temperature 98.6. LUNGS: Clear. HEART: Regular. ABDOMEN: Obese. EXTREMITIES: Without any edema. IMAGING: CT of the chest shows small bilateral pleural effusions and bilateral lower lobe atelectasis, no evidence of any ongoing pneumonia. ASSESSMENT AND PLAN: 1. The patient admitted with hypoxic respiratory failure, possibly from underlying chronic obstructive pulmonary disease as well as diastolic congestive heart failure. Stable and can be discharged back to the residential. 2. Chronic hypercapnic respiratory failure. Continue BiPAP at the residential. I advised the patient be considered for palliative care. EZEQUIEL WOODS MD CM:PNTRANS [id number] EZEQUIEL WOODS MD 06/03/18 2339 interface
--- NOTE | ~2018-05-31 | PR ---
[place], [place] PROGRESS NOTE NAME: CALI TAM [facility] #: [id number] UNIT #: [id number] ROOM: 532 DOCTOR: LISA BRANCH MD,CRISTIAN BIRTHDATE: [birth year] DOS: 06/02/2018 SUBJECTIVE: She was noted comfortable at this time, resting on the bed at this time. Has not been noted any ongoing acute new respiratory complaints. Denies symptoms of chest pain or any hemoptysis. The patient denies symptoms of abdominal pain. REVIEW OF SYSTEMS: Review of systems was completed and was noted as negative. OBJECTIVE: VITAL SIGNS: For the patient, which are recorded showed the temperature noted normal, respiratory rate 20, heart rate 65, blood pressure 113/44. Pulse oxygen saturation on 3 liters 94% saturation. HEENT: Examination shows chronic obesity. Head was atraumatic. Eyes nonicterus. NECK: Supple. CARDIOVASCULAR: S1, S2 is audible. LUNGS: The patient was noted without any wheezing or crackles at the present time. Breaths are noted generally diminished bilaterally. ABDOMEN: Soft, nontender, bowel sounds present. EXTREMITIES: Lower extremity noted mild to moderate edema of the lower extremities. VISIBLE SKIN: No lesions or rashes. CENTRAL NERVOUS SYSTEM: Cranial nerves 2-12 intact. MUSCULOSKELETAL: Without any acute deformities. LABORATORY DATA: Chest x-ray shows basilar area of atelectasis, small pleural fluid was suspected on the chest x-ray, PA and lateral view, which was done yesterday. Arterial blood gas that was also done yesterday as ordered, reviewed, pH of 7.39, pCO2 of 60, pO2 52.5 and 40% oxygen supplementation. CMP this morning was noted as normal BUN and creatinine. Potassium 3.3. Blood culture from the 05/31/2018 noted with no bacterial growth. The patient's CT scan of chest, which was ordered by Dr. Maricarmen Elliott was assessed this morning shows mild lymph node enlargement noted. Mediastinal remains unchanged for the past [address] scan comparison. Small area of atelectasis noted in the right middle lobe with small pleural effusions as well. Changes of emphysema were also present. IMPRESSION: 1. The patient with an ongoing acute chronic hypoxic respiratory failure and acute chronic hypercapnic respiratory failure, stable. 2. The patient with congestive heart failure superimposed with peripheral edema. The patient chronic edema was noted as well. 3. Respiratory alkalosis. The patient was also noted secondary to chronic hypercarbia. 4. Chronic obesity. 5. Obstructive sleep apnea disorder. PLAN OF MANAGEMENT: Continue the Diamox was started yesterday. Improvement in the metabolic alkalosis was noted. Monitoring of the electrolytes [place], [place] PROGRESS NOTE NAME: CALI TAM UNIT #: [id number] ROOM: [facility] DOCTOR: CRISTIAN SORIANO MD BIRTHDATE: [birth year] supplementation accordingly. Continuation of Lasix, bronchodilators and the use of the BiPAP with current settings. Other additional treatment changes will be made based on progression of the illness and current infiltration. The patient was not noted consistent with acute pneumonia suspected mucus impaction causing areas of atelectasis in the lungs. CRISTIAN GONZALEZ MD CM:PNTRANS [phone] CRISTIAN BRANCH MD 06/03/18 0715 interface
--- NOTE | ~2018-05-31 | PR ---
[place], [place] PROGRESS NOTE NAME: CALI TAM [facility] #: [id number] UNIT #: [id number] ROOM: 532 DOCTOR: ALEKSEY SIMENTAL MD BIRTHDATE: [birth year] DOS: 06/01/2018 SUBJECTIVE: The patient's breathing is improving with treatment. OBJECTIVE: VITAL SIGNS: Blood pressure 100/52, heart rate of 63 beats per minute, breathing 16 times per minute, temperature 98.5 degrees Fahrenheit. GENERAL APPEARANCE: The patient is alert and oriented x 3, in no visible distress, except for morbid obesity and generalized weakness. HEENT AND NECK: Exam within normal limits. CARDIOVASCULAR SYSTEM: Heart rate is regular in rate and rhythm. S1 and S2 normally audible. LUNGS: Clear to auscultation, somewhat decreased breath sounds.. ABDOMEN: Soft, nontender. No obvious organomegaly. Bowel sounds are present. EXTREMITIES: Without significant cyanosis or edema. IMPRESSION: 1. The patient with bilateral lower lobe pneumonic infiltrates, which have been treated with antibiotics for some time now and clinically improving. I have consulted Dr. Taveras, the analytics manager to help with diagnosis and management. 2. Acute exacerbation of chronic obstructive pulmonary disease and hypoxemia, treated and improved. 3. Hypothyroidism, treated with levothyroxine. 4. Gastroesophageal reflux disease and esophagitis, asymptomatic with omeprazole. 5. Benign essential hypertension, treated with atenolol. Blood pressure is being monitored. 6. 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 The patient is on Imdur. ALEKSEY SIMENTAL MD CM:PNTRANS [phone] ALEKSEY SIMENTAL MD 06/02/18 1559 interface
--- NOTE | ~2018-05-31 | PR ---
[place], [place] PROGRESS NOTE NAME: CALI TAM [facility] #: [id number] UNIT #: [id number] ROOM: 532 DOCTOR: EZEQUIEL WOODS MD BIRTHDATE: [birth year] DOS: SUBJECTIVE: The patient is not having any new complaints today. She is resting comfortably. OBJECTIVE: VITAL SIGNS: Blood pressure is 130/57, pulse of 70, respirations 20 and temperature 98.0. LUNGS: Diminished breath sounds, clear. HEART: Regular. ABDOMEN: Obese. EXTREMITIES: Without any edema. ASSESSMENT AND PLAN: 1. Acute exacerbation of chronic obstructive pulmonary disease. The patient seems to have no wheezing this morning. The bronchospasm seems to have resolved. 2. Chronic hypercapnic respiratory failure with also underlying hypoxemia. The patient uses a BiPAP at the [facility]. 3. History of diastolic congestive heart failure with recent hospitalization on diuretics without any evidence of congestive heart failure. 4. Benign hypertension, controlled. CT of the chest will be ordered. If that comes back negative, the patient should be able to go back to the [facility]. EZEQUIEL WOODS MD CM:PNTRANS [phone] EZEQUIEL WOODS MD 06/03/18 0150 interface
--- NOTE | ~2018-05-31 | CON ---
[place], [place] REPORT OF CONSULTATION [id number] UNIT #: [id number] ROOM: 532 DOCTOR: LISA BRANCH MDCRISTIAN BIRTHDATE: [birth year] DOS: 06/01/2018 PULMONARY CONSULTATION EVALUATION AND MANAGEMENT REASON FOR CONSULTATION: To assess the patient for current ongoing acute respiratory complaints with shortness of breath. HISTORY OF PRESENT ILLNESS: This is an 83-year-old white female who was admitted short-term under the care of Dr. Hernandez recently. The patient was admitted from the halfway on 05/27/2018 and discharged to the nursing facility on 05/30/2018. She returned back to the hospital the next day, as the patient has been reported with increased symptoms of shortness of breath and some cough, which is noted nonproductive. The patient denies symptoms of chest pain or hemoptysis. The patient denies symptoms of wheezing or chest pain. She has been currently getting BiPAP use, noninvasive ventilator, at the nursing facility for chronic hypercapnic and hypoxic respiratory failure as well. She does have mild wheezing. There were no symptoms of chest pain or hemoptysis reported by the patient. REVIEW OF SYSTEMS: CONSTITUTIONAL: Fatigue and tiredness noted without any symptoms of fever or chills. EYES: Denies any burning, redness or tenderness. EARS, NOSE, THROAT SYMPTOMS: Denies sore throat, hoarseness, otalgia, postnasal drainage or epistaxis. CARDIOVASCULAR: Denies anginal pain or palpitation. Noted edema of the lower extremities. GASTROINTESTINAL: Denies dysphagia, nausea, vomiting, diarrhea, abdominal pain, hematemesis, melena or hematochezia. GENITOURINARY: Denies dysuria, suprapubic pain or hematuria. MUSCULOSKELETAL: Noted with chronic pain, spinal stenosis of the spine and osteoarthritis, but there was no acute pain reported in any joints. There was no deformity reported. CENTRAL NERVOUS SYSTEM: Denies dizziness, headache, diplopia, syncopal episode. She does walk at the nursing facility with the use of a walker. PAST MEDICAL HISTORY: 1. End-stage chronic obstructive pulmonary disease. 2. Chronic hypoxic respiratory failure, use of oxygen supplementation up to 4 liters with exertion, 2 liters at rest. 3. Chronic hypercapnic respiratory failure. 4. Metabolic alkalosis secondary to chronic hypercapnia. 5. Essential hypertension. 6. Hypothyroidism. 7. Failure to thrive. 8. Myelodysplastic syndrome, which is chronic. 9. Morbid obesity. PAST SURGICAL HISTORY: 1. Left carotid endarterectomy. [place], [place] REPORT OF CONSULTATION NAME: CALI TAM UNIT #: [id number] ROOM: [facility] DOCTOR: LISA BRANCH MD,CRISTIAN BIRTHDATE: [birth year] 2. Partial thyroidectomy. 3. Electrical cardioversion. 4. Bilateral carotid artery stent insertion. 5. Therapeutic bronchoscopy. SOCIAL HISTORY: The patient is , has 2 children, lives at [facility]. Denies alcohol use or illicit drug use. Tobacco use noted since early teenager, a pack of cigarettes per day, until 2003, worked in a bar for 20 years. FAMILY HISTORY: Father at the age of 59 due to the complications related to respiratory failure. Mother at the age of 77 due to complication related to congestive heart failure. MEDICATIONS: The current medications administered to the patient, noted use of potassium chloride, loratadine, Imdur, Lasix 40 mg p.o. daily, Plavix, atenolol, omeprazole, levothyroxine, Singulair, Dulera, DuoNeb q. 4 hours to q. 6 hours, ciprofloxacin, and other medications. DRUG ALLERGIES: NOTED ALLERGY: 1. PENICILLIN. 2. LYRICA. PHYSICAL EXAMINATION: GENERAL: This is an 83-year-old white female who has been currently lying in the bed without any acute distress on this morning of assessment. Height of 5 feet, weight of 231 pounds, BMI is 45.2. VITAL SIGNS: The patient is noted with temperature 99.3 degrees Fahrenheit, normal temperature, respiratory rate 14-20, heart rate of 60-79, blood pressure 115/50-127/50. Intake 1200, output 1151 mL. Pulse oxygen saturation on 4 liters nasal cannula was 95% saturation, with the BiPAP 93% saturation. HEENT: Shows head was atraumatic, eyes nonicterus. NECK: Supple. Moderate obesity. Decreased posterior pharyngeal space. CARDIOVASCULAR: S1, S2 audible. LUNGS: The patient was noted general reduction in breath sounds bilaterally without any wheezing or crackles. ABDOMEN: Soft, nontender. EXTREMITIES: The patient was noted chronic thickening of the skin with mild superimposed edema and venous stasis pigmentation changes. MUSCULOSKELETAL: Without any acute deformity. CENTRAL NERVOUS SYSTEM: The patient has general weakness, but there was no focal neurologic deficit. SKIN: No lesions or rashes. LABORATORY DATA: CBC that was done yesterday in the Emergency Room, WBC count normal, hemoglobin 11.3, hematocrit 39.8, platelet count 129,000. Lactic acid 1.3. PT/PTT were noted yesterday as normal PT/PTT. CMP of the patient that was done yesterday, BUN 30, creatinine normal, glucose 108. CO2 was noted as 43, chloride of 97. ProBNP mildly elevated at 3283. CBC of the patient done this morning with hemoglobin 10, hematocrit normal, WBC count normal, platelet [place], [place] REPORT OF CONSULTATION NAME: CALI TAM UNIT #: [id number] ROOM: [facility] DOCTOR: LUCILA SORIANO MDM BIRTHDATE: [birth year] 122,000. BMP of the patient, BUN 29, creatinine was normal, CO2 45. Chest x-ray was noted prominent pulmonary artery trunk for this patient with possibility of either atelectasis in the left lower lobe with pleural fluid cannot be excluded. IMPRESSION: 1. The patient will be currently admitted to the hospital with history of chronic hypercapnia hypoxic respiratory failure with possibly superimposed acute hypercapnic hypoxic respiratory failure. 2. The patient with chronic peripheral edema was also noted. 3. Rule out atelectasis in the left lower lobe versus pneumonia. 4. Metabolic alkalosis secondary to chronic severe hypercarbia. 5. The patient with history of chronic obesity, hypothyroidism, and other illnesses. PLAN OF MANAGEMENT: Order arterial blood gases on the new BiPAP setting, which was ordered 30/06. BiPAP will be continued mostly. Diamox was started, 250 mg p.o. b.i.d. Monitoring electrolytes was ordered for the patient starting tomorrow, especially for hypokalemia assessment. Titrate oxygen supplementation to maintain pulse ox saturation 92% or greater. I would not be using any antibiotic as the clinical suspicion of pneumonia is very low for this patient. The patient is getting ciprofloxacin at this time, the reason is unknown. The antibiotic will be discontinued if there is no infection known. Usual care, other supportive therapy, plan of management, other plan of care and treatments. Physical therapy as tolerated. Thank you for allowing me to participate in the care of this patient. CRISTIAN GONZALEZ MD CM:CONSTR:REPORT OF CONSULTATION 1306 06/02/18 0354 interface
--- NOTE | ~2018-05-31 | DS ---
[place], [place] DISCHARGE SUMMARY NAME: CALI TAM [facility] #: [id number] UNIT #: [id number] ROOM: 532 DOCTOR: EZEQUIEL WOODS MD BIRTHDATE: [birth year] DOS: 06/03/2018 DIAGNOSES: 1. Hypoxic respiratory failure. 2. Diastolic congestive heart failure. 3. CT showing bilateral small pleural effusions, atelectasis and vascular congestion with negative blood cultures. 4. Chronic hypercapnic respiratory failure. The patient needs to use BiPAP at the [facility]. 5. Benign hypertension. 6. Adult failure to thrive. 7. Mixed hyperlipidemia. 8. History of carotid artery stent. 9. Chronic diastolic congestive heart failure. 10. Hypothyroidism. DISCHARGE MEDICATIONS: The patient's medications on discharge will be acetazolamide 250 mg twice a day, prednisone 5 mg daily without a stop date, Lasix 60 mg daily, Singulair 10 daily, Colace 100 daily, Plavix 75 daily, levothyroxine 100 mcg daily, iron 325 daily, breathing treatments with DuoNeb q. 6 hours, isosorbide 30 daily, omeprazole 20 daily, Tylenol 650 q. 6 hours p.r.n., loratadine 10 daily, Maalox 30 mL q. 4 hours p.r.n. Phenol Sore Throat 2 sprays q. 4 hours p.r.n.. Thiamine 100 mg daily, simvastatin 10 daily, guaifenesin 600 b.i.d. p.r.n., potassium 20 daily, calcium 500 daily. Imodium daily p.r.n. for diarrhea, Symbicort 80 two puffs twice a day, Spiriva 1 puff at bedtime, oxygen 2 liters per minute nasal cannula, titrate for pulse ox more than 92. HOSPITAL COURSE: The patient is 83 years old. The patient has had multiple admissions to the hospital, lately. Please refer to H and P dictated for details. After admission, the patient was placed under Dr. Hernandez's care on p.o. antibiotics and breathing treatments and oxygen supplementation. Dr. Taveras was consulted. He felt that the patient did not need antibiotics because of there was no pneumonia seen. CT of the chest did not show pneumonia. Chronic pulmonary vascular congestion, small bilateral pleural effusions and atelectasis were noted. The patient is stable, has been oxygenating well. The plan is to discharge her back to the [facility]. Please consider palliative care for this patient at the [facility]. DIET: Low sodium, fluid restriction to 1800 mL. Please do a basic metabolic panel and CBC on Monday. [place], [place] DISCHARGE SUMMARY NAME: CALI TAM UNIT #: [id number] ROOM: [facility] DOCTOR: EZEQUIEL WOODS MD BIRTHDATE: [birth year] EZEQUIEL WOODS MD CM:DISCHARG [id number] EZEQUIEL WOODS MD 06/03/18 1623 interface
--- NOTE | ~2018-05-31 | WRIGHTHP ---
[place], [place] PATIENT HISTORY AND PHYSICAL EXAM NAME: CALI TAM [facility] #: [id number] UNIT #: [id number] ROOM: 532 DOCTOR: ALEKSEY SIMENTAL MD BIRTHDATE: [birth year] DOS: 05/31/2018 The patient has a past medical history of: 1. COPD. 2. Morbid obesity. 3. Benign essential hypertension. 4. Advanced adult failure to thrive. 5. 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 6. Mixed hyperlipidemia. 7. Hypothyroidism. 8. Coronary artery disease of [place] vessels. 9. Mixed hyperlipidemia. 10. Hiatal hernia, GERD and reflux esophagitis. 11. Bilateral carotid artery stent placements for stenosis. 12. Chronic respiratory failure, obesity, sleep apnea. The patient on CPAP. 13. Pollen allergies. 14. Hypothyroidism. 15. Chronic lymphedema involving both lower extremities with skin changes. 16. Chronic diastolic type congestive heart failure. The patient was recently discharged from [facility] after treatment of acute exacerbation of COPD and she apparently had an hypoxemic episode at the assisted and was sent over to the Emergency Department. The patient was treated for hypoxemia, started on 100% oxygen and now she is back to her baseline and requiring 4 liters of oxygen and saturating 94-95% pulse ox and breathing normally and comfortably. The patient is completely asymptomatic. No chest pains, no shortness of breath. No other GI or urinary symptoms. SYSTEMS REVIEW: LUNGS: Hypoxemic episode. GASTROINTESTINAL: No nausea, vomiting, diarrhea or constipation. CARDIOVASCULAR: No chest pains or palpitations. HOME MEDICATIONS: Medrol Dosepak, Imdur, furosemide, Lasix, simvastatin, atenolol, Plavix, omeprazole, levothyroxine, simvastatin, Singulair, Colace, Medrol, DuoNeb, loperamide, Cipro. ALLERGIES: Known allergies to PENICILLIN, LATEX and LYRICA. FAMILY HISTORY: Noncontributory. PHYSICAL EXAMINATION: GENERAL: Alert, oriented x 3, morbidly obese, very generalized weakness, chronic leg edema 3-4+ with chronic skin changes. LUNGS: Clear to auscultation, somewhat decreased breath sounds. VITAL SIGNS: Blood pressure was 112/44, heart rate 79 beats per minute, breathing 24 times per minute, temperature 99.3 degrees Fahrenheit. LABORATORY DATA: Hemoglobin 11.3, platelets 129,000. [place], [place] PATIENT HISTORY AND PHYSICAL EXAM [id number] UNIT #: [id number] ROOM: 532 DOCTOR: ALEKSEY SIMENTAL MD BIRTHDATE: [birth year] IMPRESSION: 1. The patient with an acute exacerbation of chronic obstructive pulmonary disease with hypoxemic episode at the assisted, but now she has completely recovered and back to her baseline, receiving 4 liters of oxygen by nasal cannula and pulse ox is good at 94%. I will get an opinion from Dr. Taveras. The patient is chronically sick and appears to have achieved maximal benefit from this admission. I will keep her on DuoNeb, oxygen, nebulizer treatments. Chest x-ray with suspected bronchopneumonia in the right lower lung, which is already being treated with antibiotics, which is being continued. 2. Hypothyroidism, replaced with supplements. 3. Benign essential hypertension, treated and controlled. 4. Coronary artery disease of [place] vessels, without chest pain. 5. Hypothyroidism, treated with thyroid supplements. ALEKSEY SIMENTAL MD CM:HISPHYS:PATIENT HISTORY AND PHYSICAL EXAMINATION [id number] ALEKSEY SIMENTAL MD 05/31/18 1657 interface
--- NOTE | ~2018-05-31 | EKG ---
[place], [place] ELECTROCARDIOGRAM REPORT NAME: CALI TAM UNIT #: [id number] ROOM: 532 DOCTOR: CONCHITA DRAFT REPORT BIRTHDATE: [birth year] [facility] Test Date: 2018-05-31 Test Time: 11:36:00 Pat Name: CALI TAM Department: Room: Gender: F [employer] Att[employer]: : 1935 Requested By: SACHA SINGLETARY Order Number: [id number] Reading MD: Merna Call MD Measurements Intervals [place] Rate: 73 P: 33 ME: 164 QRS: -40 QRSD: 151 T: 103 QT: 434 QTc: 479 Interpretive Statements Sinus rhythm Atrial premature complexes Left bundle branch block Electronically Signed On 06-01-2018 11:11:24 PDT by Merna Call MD CM:EKGRPT:ELECTROCARDIOGRAM REPORT 1136 [id number] SACHA [place] DRAFT REPORT SACHA SINGLETARY DO
[~2018-05-31 11:08] MED LIST changes: +GUAIFENESIN DM1 EACH PO; +POTASSIUM CHLO20 ME3 PO
[2018-05-31 11:52] LABS: BASO % 0.1 % (0.0-1.0); EOS % 0.2 % (1.0-4.0); HEMATOCRIT 39.8 % (37.0-47.0); HEMOGLOBIN 11.3 g/dl (12.0-16.0); LYMPH % 12.2 % (27.0-41.0); MEAN CELL VOLUME 102.1 fl (81.0-99.0); MEAN CORPUSCULAR HGB CONC 28.4 g/dl (33.0-37.0); MEAN PLATELET VOLUME 8.7 fl (9.6-12.3); MONO # 0.6 10*3/uL (0.1-1.0); MONO % 7.1 % (3.0-9.0); NEUT # 6.5 10*3/uL (2.3-7.9); NEUT % 79.8 % (47.0-73.0); PLATELET COUNT AUTOMATED 129 10*3/uL (130-400); RED CELL DISTRI WIDTH 16.2 % (0-14.5); WHITE BLOOD COUNT 8.2 10*3/uL (4.8-10.8)
[2018-05-31 12:01] LABS: ACT PARTIAL THROMBO TIME 20.7 SECONDS (20.8-31.5); INTERNATIONAL NORM RATIO 1.1 (2.0-3.5)
[2018-05-31 12:07] LABS: ALBUMIN 3.9 gm/dl (3.1-4.5); ALKALINE PHOSPHATASE 74 U/L (45-117); BUN 30 mg/dl (7-24); CHLORIDE 97 mmol/L (98-107); CREATININE 0.96 mg/dL (0.55-1.02); LIPASE 130 U/L (73-393); POTASSIUM 4.3 mmol/L (3.5-5.1); SGOT/AST 15 IU/L (3-35); SGPT/ALT 30 U/L (12-78); SODIUM 142 mmol/L (136-145)
[2018-05-31 12:13] LABS: TROPONIN I < 0.015 ng/ml (<0.045)
[2018-05-31] MEDS ORDERED: ARTIFICIAL TEA1 EACH OP (13:22)
[2018-05-31] MEDS ORDERED: CALMOSEPTINE OI71 GM T (13:25)
[2018-05-31] MEDS ORDERED: CHLORHEXIDINE473 M1 PO (13:26)
[2018-05-31] MEDS ORDERED: NEURONTIN100 MG PO (13:28)
[2018-06-01] VITALS: BP 115/50
[2018-06-01 06:22] LABS: BASO % 0.1 % (0.0-1.0); EOS % 0.1 % (1.0-4.0); HEMATOCRIT 34.8 % (37.0-47.0); LYMPH # 1.3 10*3/uL (1.3-4.4); LYMPH % 15.9 % (27.0-41.0); MEAN CELL VOLUME 99.7 fl (81.0-99.0); MEAN CORPUSCULAR HGB 28.7 pg (27.0-31.0); MEAN CORPUSCULAR HGB CONC 28.7 g/dl (33.0-37.0); MEAN PLATELET VOLUME 9.3 fl (9.6-12.3); MONO # 0.4 10*3/uL (0.1-1.0); MONO % 4.7 % (3.0-9.0); NEUT # 6.2 10*3/uL (2.3-7.9); NEUT % 78.8 % (47.0-73.0); PLATELET COUNT AUTOMATED 122 10*3/uL (130-400); RED BLOOD COUNT 3.49 10*6/uL (4.10-5.10); RED CELL DISTRI WIDTH 15.9 % (0-14.5); WHITE BLOOD COUNT 7.9 10*3/uL (4.8-10.8)
[2018-06-01 06:36] LABS: BUN 29 mg/dl (7-24); CHLORIDE 94 mmol/L (98-107); CREATININE 0.93 mg/dL (0.55-1.02); POTASSIUM 4.1 mmol/L (3.5-5.1); SODIUM 141 mmol/L (136-145)
[2018-06-01 08:00] VITALS: BP 127/50
[2018-06-01 12:00] VITALS: BP 106/50
[2018-06-01 15:38] VITALS: BP 100/52
[2018-06-01 16:13] LABS: ABG BASE EXCESS 13.9 mmol/L (-2.0-2.0); ABG O2 SATURATION 88.6 % (95-97); ARTERIAL BLOOD GAS PCO2 68.6 mmHg (35-45); ARTERIAL BLOOD GAS PH 7.394 (7.35-7.45); ARTERIAL BLOOD GAS PO2 52.5 mmHg (80-90)
[2018-06-01 17:00] VITALS: BP 100/52
[2018-06-01 20:00] VITALS: BP 101/70
[2018-06-02] VITALS: BP 131/57
[2018-06-02 06:59] LABS: ALBUMIN 3.2 gm/dl (3.1-4.5); ALKALINE PHOSPHATASE 60 U/L (45-117); BUN 24 mg/dl (7-24); CHLORIDE 97 mmol/L (98-107); CREATININE 0.92 mg/dL (0.55-1.02); POTASSIUM 3.3 mmol/L (3.5-5.1); SGOT/AST 7 IU/L (3-35); SGPT/ALT 16 U/L (12-78); SODIUM 139 mmol/L (136-145); TOTAL PROTEIN 6.3 gm/dL (6.4-8.2)
[2018-06-02 07:39] VITALS: BP 138/62
[2018-06-02 08:00] VITALS: BP 127/42
[2018-06-02 12:00] VITALS: BP 133/46
[2018-06-02 16:00] VITALS: BP 101/40
[2018-06-02 20:00] VITALS: BP 113/44
[2018-06-03] VITALS: BP 132/43
[2018-06-03] MEDS ORDERED: LASIX40 MG PO (06:27)
[2018-06-03] MEDS ORDERED: ACETAZOLAMIDE250 MG PO (06:27)
[2018-06-03] MEDS ORDERED: PREDNISONE5 MG PO (06:27)
[2018-06-03 06:39] LABS: ALBUMIN 2.9 gm/dl (3.1-4.5); ALKALINE PHOSPHATASE 60 U/L (45-117); BUN 22 mg/dl (7-24); CHLORIDE 100 mmol/L (98-107); CREATININE 0.77 mg/dL (0.55-1.02); POTASSIUM 3.6 mmol/L (3.5-5.1); SGOT/AST 6 IU/L (3-35); SGPT/ALT 13 U/L (12-78); SODIUM 140 mmol/L (136-145); TOTAL PROTEIN 6.3 gm/dL (6.4-8.2)
[2018-06-03 08:00] VITALS: BP 122/88
== END 2018-06-03 10:10 | DRG 189 ==
LOC: ED 11:08 → 5E 13:09
PROVIDERS: Emergency Medicine; Internal Medicine; Internal Medicine Critical Care Medicine
PROC: 5A09357 Assistance with Respiratory Ventilation, Less than 24 Consecutive Hours, Continuous Positive Airway Pressure (ICD-10-PCS; principal; 2018-06-01)
PROC: 5A09357 Assistance with Respiratory Ventilation, Less than 24 Consecutive Hours, Continuous Positive Airway Pressure (ICD-10-PCS; 2018-06-02)
DX: J96.21 Acute and chronic respiratory failure with hypoxia (principal); E87.3 Alkalosis; J44.1 Chronic obstructive pulmonary disease with (acute) exacerbation; E66.01 Morbid (severe) obesity due to excess calories; I50.32 Chronic diastolic (congestive) heart failure; I11.0 Hypertensive heart disease with heart failure; D46.9 Myelodysplastic syndrome, unspecified; Z68.42 Body mass index [BMI] 45.0-49.9, adult; J98.11 Atelectasis; K21.0 Gastro-esophageal reflux disease with esophagitis; J96.22 Acute and chronic respiratory failure with hypercapnia; Z96.653 Presence of artificial knee joint, bilateral; Z96.612 Presence of left artificial shoulder joint; Z96.611 Presence of right artificial shoulder joint; E89.0 Postprocedural hypothyroidism; Z66 Do not resuscitate; I25.10 Atherosclerotic heart disease of native coronary artery without angina pectoris; E78.2 Mixed hyperlipidemia; G47.33 Obstructive sleep apnea (adult) (pediatric); Z82.5 Family history of asthma and other chronic lower respiratory diseases; Z91.040 Latex allergy status; Z88.0 Allergy status to penicillin; Z98.61 Coronary angioplasty status; Z82.49 Family history of ischemic heart disease and other diseases of the circulatory system; Z80.8 Family history of malignant neoplasm of other organs or systems; Z91.09 Other allergy status, other than to drugs and biological substances; Z90.710 Acquired absence of both cervix and uterus

== ENCOUNTER → 2018-06-13 | Outpatient (CLI) | payer MEDICARE, OTHER ==
[~2018-06-13] MED LIST changes: +ARTIFICIAL TEA1 EACH OP; +PREDNISONE5 MG PO
== END | disposition home or self-care (01) ==
LOC: CT 09:11
DX: R41.82 Altered mental status, unspecified (principal)